=== PATIENT | male | born 1955 | race Caucasian/White ===

== ENCOUNTER → 2017-01-13 | Outpatient (CLI) | payer MEDICAID, MEDICARE ==
[2017-01-13 08:13] LABS: Basophils # (A) 0.1 k/uL (0-0.2); Basophils % (A) 1 %; CH 31.5; CHCM 33.4; Eosinophils # (A) 0.3 k/uL (0-0.7); Eosinophils % (A) 2 %; HCT 46.7 % (39.0-53.0); HGB 15.6 gm/dL (13.0-17.5); Luc # (Auto) 0.17; Luc % (Auto) 2; Lymphocytes # (A) 2.5 k/uL (1.0-4.8); Lymphocytes % (A) 23 %; MCH 31.6 pg (25.0-35.0); MCHC 33.3 g/dL (31.0-37.0); Mean Platelet Volume 6.2; Monocytes # (A) 0.7 k/uL (0-1.0); Monocytes % (A) 6 %; Neutrophils # (A) 7.2 k/uL (1.3-7.7); Neutrophils % (A) 67 %; RBC 4.92 m/uL (4.30-5.90); RDW 13.2 % (11.5-15.5); WBC 10.8 k/uL (3.8-10.6); WBC (Perox) 10.79
[2017-01-13 08:45] LABS: Appearance,Urine Clear (Clear); Bilirubin,Urine Negative (Negative); Glucose,Urine (UA) Negative (Negative); Ketones,Urine 1+ (Negative); Leukocyte Esterase,Urine Negative (Negative); Mucus,Urine Rare /hpf; Nitrite,Urine Negative (Negative); Particle Count 526; Protein,Urine Negative (Negative); RBC,Urine 14 /hpf (0-5); Specific Gravity,Urine 1.006 (1.001-1.035); UA Billing (MACRO vs. MICRO) MICRO; Urobilinogen,Urine <2.0 mg/dL (<2.0); WBC,Urine <1 /hpf (0-5)
[2017-01-13 11:00] LABS: ALT 29 U/L (21-72); AST 21 U/L (17-59); Alkaline Phosphatase 75 U/L (38-126); Anion Gap 10 mmol/L; Blood Urea Nitrogen 9 mg/dL (9-20); Calcium 9.8 mg/dL (8.4-10.2); Carbon Dioxide 27 mmol/L (22-30); Chloride 105 mmol/L (98-107); Cholesterol 188 mg/dL (<200); Glucose 122 mg/dL (74-99); HDL Cholesterol 41 mg/dL (40-60); Non-African American GFR(MDRD) >60 (>60 ml/min/1.73 sqM); Potassium 4.7 mmol/L (3.5-5.1); Sodium 142 mmol/L (137-145); Total Bilirubin 0.6 mg/dL (0.2-1.3); Total Protein 7.8 g/dL (6.3-8.2); Triglycerides 133 mg/dL (<150)
[2017-01-13 11:29] LABS: Prostate Specific Antigen 1.16 ng/mL (0.00-4.00)
== END | disposition home or self-care (01) ==
LOC: LABWHC1 07:42
PROVIDERS: ATTEND Family Medicine
DX: Z00.01 Encounter for general adult medical examination with abnormal findings (principal)
CPT/HCPCS: 36415; 80053; 80061; 81001; 84153; 85025

== ENCOUNTER → 2017-08-15 | Outpatient (CLI) | payer MEDICAID, MEDICARE ==
[2017-08-15 12:33] LABS: Basophils # (A) 0.1 k/uL (0-0.2); Basophils % (A) 1 %; CH 31.6; CHCM 33.7; Eosinophils # (A) 0.3 k/uL (0-0.7); Eosinophils % (A) 3 %; HCT 46.2 % (39.0-53.0); HDW 2.49; HGB 15.3 gm/dL (13.0-17.5); Luc # (Auto) 0.22; Luc % (Auto) 2; Lymphocytes # (A) 2.3 k/uL (1.0-4.8); Lymphocytes % (A) 25 %; MCH 31.1 pg (25.0-35.0); MCHC 33.1 g/dL (31.0-37.0); MCV 94.1 fL (80.0-100.0); Mean Platelet Volume 6.1; Monocytes # (A) 0.4 k/uL (0-1.0); Monocytes % (A) 4 %; Neutrophils # (A) 5.9 k/uL (1.3-7.7); Neutrophils % (A) 64 %; RBC 4.91 m/uL (4.30-5.90); RDW 12.8 % (11.5-15.5); WBC 9.2 k/uL (3.8-10.6); WBC (Perox) 8.99
[2017-08-15 12:48] LABS: ALT 37 U/L (21-72); AST 21 U/L (17-59); Anion Gap 9 mmol/L; Blood Urea Nitrogen 12 mg/dL (9-20); Calcium 9.6 mg/dL (8.4-10.2); Carbon Dioxide 25 mmol/L (22-30); Chloride 105 mmol/L (98-107); Cholesterol 186 mg/dL (<200); Glucose 124 mg/dL (74-99); HDL Cholesterol 44 mg/dL (40-60); Non-African American GFR(MDRD) >60 (>60 ml/min/1.73 sqM); Potassium 4.3 mmol/L (3.5-5.1); Sodium 139 mmol/L (137-145)
== END | disposition home or self-care (01) ==
LOC: LABWHC1 11:51
PROVIDERS: ATTEND Family Medicine
DX: E78.5 Hyperlipidemia, unspecified (principal); I10 Essential (primary) hypertension; E55.9 Vitamin D deficiency, unspecified
CPT/HCPCS: 36415; 80048; 80061; 82306; 84450; 84460; 85025

== ENCOUNTER → 2018-03-27 | Outpatient (CLI) | payer MEDICAID, MEDICARE ==
--- NOTE | 2018-03-27 16:26 | MR ---
EXAMINATION TYPE: MR lumbar spine wo con DATE OF EXAM: 03/27/2018 COMPARISON: None HISTORY: 62-year-old male with low back pain and right lower extremity radiculopathy for years, no tr auma/surgery TECHNIQUE: Multiplanar, multisequence images of the lumbar spine were acquired. Findings: Vertebral body heights are preserved and alignment is maintained. Mild heterogeneous marrow signal without suspicious bone marrow placement. There is some mixed Modic type I and type II endplate changes anteriorly at L1-L2 and a fatty matrix hemangioma within the L2 v ertebral body. Component of mild congenital spinal canal narrowing with AP canal dimension of 1.3 cm mid to lower christopher mbar spine. Variable mild disc desiccation throughout and bulging discs. Hypertrophic facet arthropathy and scattered ligamentum flavum thickening. Additional prominent dorsa l epidural fat at L2/L3. Conus medullaris is normal. 2.0 cm central cyst in the right kidney. Ectatic upper abdominal aorta 2.8 cm. Mild fusiform dilatati on of the infrarenal abdominal aorta 2.4 cm. No aneurysm. At T12-L1, no significant spinal canal or neural foraminal stenosis. At L1-L2, no significant spinal canal or foraminal stenosis. At L2-L3, there is diffuse disc bulge with ligamentum flavum thickening, prominent dorsal epidural fa t, and facet arthropathy. Changes result in a mild spinal canal stenosis along with mild right greate r than left neural foraminal stenosis. At L3-L4, there is mild lateral disc bulging with facet degenerative change. No significant spinal ca nal stenosis. Minimal bilateral inferior neuroforaminal stenosis. At L4-L5, hypertrophic facet arthropathy with ligamentum flavum thickening and lateral disc bulging. Changes results in minimal bilateral inferior foraminal narrowing without spinal canal stenosis. At L5-S1, bulging disc with facet arthropathy. Changes result in moderate left neural foraminal steno sis with moderate to severe right neural foraminal stenosis probably with impingement of the exiting right L5 nerve root. IMPRESSION: 1. A component of mild congenital spinal canal narrowing. There is superimposed mild multilevel degen erative disc disease. Additional multilevel ligamentum flavum thickening and facet arthropathy. 2. Changes result in an overall mild spinal canal stenosis at L2-L3. Mild right greater than left hudson ral foraminal stenosis at this level. 3. At L5-S1, there is moderate left and moderate to severe right neuroforaminal stenosis possibly wit h impingement of the exiting right L5 nerve root. 4. No high-grade canal compromise.
== END | disposition home or self-care (01) ==
LOC: RADMRIMAIN 15:16
PROVIDERS: ATTEND Psychiatry & Neurology Neurology
DX: M48.061 Spinal stenosis, lumbar region without neurogenic claudication (principal); M99.73 Connective tissue and disc stenosis of intervertebral foramina of lumbar region; M51.36 Other intervertebral disc degeneration, lumbar region; M46.96 Unspecified inflammatory spondylopathy, lumbar region; M24.28 Disorder of ligament, vertebrae; Z88.5 Allergy status to narcotic agent; Z88.6 Allergy status to analgesic agent; Z88.8 Allergy status to other drugs, medicaments and biological substances
CPT/HCPCS: 72148

== ENCOUNTER → 2018-06-04 | Outpatient (CLI) | payer MEDICAID, MEDICARE ==
--- NOTE | 2018-06-04 21:26 | XR ---
EXAMINATION TYPE: XR chest 2V DATE OF EXAM: 06/04/2018 COMPARISON: 06/23/2010 TECHNIQUE: PA and lateral views submitted. HISTORY: Cough FINDINGS: The lungs are clear and there is no pneumothorax, pleural effusion, or focal pneumonia. Hyperinflat ion suggests COPD. Postsurgical change cervical spine. Hypertrophic and degenerative change spine. Hy perinflation suggests COPD. Prominent nodular density overlying the right upper lobe. IMPRESSION: 1. COPD. There is a 1.2 cm nodule overlying the right upper lobe. CT chest recommended.
== END | disposition home or self-care (01) ==
LOC: RADXRMAIN 15:58
PROVIDERS: ATTEND Physician Assistant
DX: J44.9 Chronic obstructive pulmonary disease, unspecified (principal); R91.1 Solitary pulmonary nodule
CPT/HCPCS: 71046

== ENCOUNTER → 2018-07-20 | Outpatient (CLI) | payer MEDICAID, MEDICARE ==
[2018-07-20 16:08] LABS: Basophils # (A) 0.1 k/uL (0-0.2); Basophils % (A) 1 %; Eosinophils # (A) 0.2 k/uL (0-0.7); Eosinophils % (A) 2 %; HCT 43.4 % (39.0-53.0); HGB 14.1 gm/dL (13.0-17.5); Lymphocytes # (A) 2.1 k/uL (1.0-4.8); Lymphocytes % (A) 21 %; MCH 31.2 pg (25.0-35.0); MCHC 32.5 g/dL (31.0-37.0); MCV 96.1 fL (80.0-100.0); Mean Platelet Volume 6.3; Monocytes # (A) 0.4 k/uL (0-1.0); Monocytes % (A) 4 %; Neutrophils # (A) 6.8 k/uL (1.3-7.7); Neutrophils % (A) 70 %; Platelet Count 330 k/uL (150-450); RBC 4.51 m/uL (4.30-5.90); WBC 9.7 k/uL (3.8-10.6)
[2018-07-20 16:19] LABS: Calcium 9.9 mg/dL (8.4-10.2); Potassium 5.4 mmol/L (3.5-5.1)
[2018-07-21 03:48] LABS: Hemoglobin A1C 6.9 % (4.0-6.0)
--- NOTE | 2018-07-21 13:25 | CT ---
EXAMINATION TYPE: CT chest w con DATE OF EXAM: 07/20/2018 COMPARISON: Chest x-ray 06/04/2018 HISTORY: abnormal chest xray CT DLP: 625 mGycm Automated exposure control for dose reduction was used. CONTRAST: CT scan of the chest is performed with IV Contrast, patient injected with 100 mL of Isovue 300. FINDINGS: LUNGS: The lungs are grossly clear, there is no concerning parenchymal mass or nodule identified. T here is no pleural effusion or pneumothorax seen. The tracheobronchial tree is patent. MEDIASTINUM: There are no greater than 1 cm hilar or mediastinal lymph nodes. There are coronary esperanza ry calcifications. No pericardial effusion is seen. AORTA: No additional significant abnormality is seen. OTHER: Hypertrophic change present at the junction of the anterior rib and manubrium is present and likely corresponds to the abnormality described on chest x-ray.. IMPRESSION: No evident lung mass. Coronary artery disease.
== END ==
LOC: RADCTMAIN 15:34
PROVIDERS: ATTEND Family Medicine
DX: D49.1 Neoplasm of unspecified behavior of respiratory system (principal); I25.10 Atherosclerotic heart disease of native coronary artery without angina pectoris; I10 Essential (primary) hypertension; E78.5 Hyperlipidemia, unspecified; E11.65 Type 2 diabetes mellitus with hyperglycemia
CPT/HCPCS: 80048; 84450; 84460; 85025; 83036; 71260; Q9967

== ENCOUNTER → 2018-08-03 | Outpatient (CLI) | payer MEDICAID, MEDICARE ==
[2018-08-03 19:10] LABS: Anion Gap 6.7 mmol/L (4.00-12.00); Calcium 9.1 mg/dL (8.7-10.3); Carbon Dioxide 26.3 mmol/L (21.6-31.8); Potassium 4.4 mmol/L (3.5-5.5)
== END ==
LOC: LABWHC1 12:13
PROVIDERS: ATTEND Family Medicine
DX: Z51.81 Encounter for therapeutic drug level monitoring (principal)
CPT/HCPCS: 36415; 80048

== ENCOUNTER → 2018-10-22 | Outpatient (CLI) | payer MEDICAID, MEDICARE ==
[2018-10-22 16:28] LABS: HCT 42.3 % (39.0-53.0); HGB 13.8 gm/dL (13.0-17.5); MCH 30.4 pg (25.0-35.0); MCHC 32.5 g/dL (31.0-37.0); MCV 93.5 fL (80.0-100.0); Mean Platelet Volume 6.1; Platelet Count 320 k/uL (150-450); RBC 4.53 m/uL (4.30-5.90); RDW 12.7 % (11.5-15.5); WBC 9.1 k/uL (3.8-10.6)
[2018-10-22 16:33] LABS: Appearance,Urine Clear (Clear); Bilirubin,Urine Negative (Negative); Blood,Urine Moderate (Negative); Color,Urine Light Yellow; Glucose,Urine (UA) Negative (Negative); Ketones,Urine Negative (Negative); Leukocyte Esterase,Urine Negative (Negative); Nitrite,Urine Negative (Negative); PH, Urine 5.5 (5.0-8.0); Protein,Urine Negative (Negative); RBC,Urine 2 /hpf (0-5); Specific Gravity,Urine 1.004 (1.001-1.035); Urobilinogen,Urine <2.0 mg/dL (<2.0); WBC,Urine <1 /hpf (0-5)
[2018-10-23 01:01] LABS: Albumin 4.3 g/dL (3.80-4.90); Albumin/Globulin Ratio 2.05 (1.60-3.17); Anion Gap 9.4 mmol/L (4.00-12.00); Carbon Dioxide 24.6 mmol/L (21.6-31.8); Globulin 2.1 g/dL (1.6-3.3); Total Bilirubin 0.5 mg/dL (0.2-1.2); Total Protein 6.4 g/dL (6.2-8.2)
[2018-10-23 01:39] LABS: Hemoglobin A1C 6.7 % (4.0-6.0)
== END | disposition home or self-care (01) ==
LOC: LABWHC1 15:07
PROVIDERS: ATTEND Family Medicine
DX: Z00.01 Encounter for general adult medical examination with abnormal findings (principal); E11.9 Type 2 diabetes mellitus without complications
CPT/HCPCS: 36415; 80053; 80061; 81001; 82043; 82550; 82570; 83036; 84153; 84443; 85027; 86803

== ENCOUNTER → 2019-04-02 | Outpatient (CLI) | payer MEDICAID, MEDICARE ==
[2019-04-02 14:36] LABS: MCH 30.1 pg (25.0-35.0); MCHC 32.5 g/dL (31.0-37.0); MCV 92.7 fL (80.0-100.0); Mean Platelet Volume 6.7; Platelet Count 289 k/uL (150-450); RBC 4.32 m/uL (4.30-5.90); RDW 13.5 % (11.5-15.5); WBC 8.9 k/uL (3.8-10.6)
[2019-04-02 18:33] LABS: African American GFR (CKD) 66.4 (60.0-200.0); Anion Gap 9.4 mmol/L (4.00-12.00); BUN/Creat Ratio 8.46 Ratio (12.00-20.00); Calcium 9.2 mg/dL (8.7-10.3); Carbon Dioxide 22.6 mmol/L (21.6-31.8); Potassium 4.3 mmol/L (3.5-5.5)
[2019-04-02 19:50] LABS: Hemoglobin A1C 6.7 % (4.0-6.0)
== END | disposition home or self-care (01) ==
LOC: LABWHC1 13:53
PROVIDERS: ATTEND Family Medicine
DX: E11.9 Type 2 diabetes mellitus without complications (principal)
CPT/HCPCS: 36415; 80048; 83036; 84450; 84460; 85027

== ENCOUNTER → 2019-09-25 | Outpatient (CLI) | payer MEDICAID, MEDICARE ==
--- NOTE | 2019-09-26 10:04 | ECHOF ---
Referral Reason:I35.1 Nonrheumatic aortic (valve) insufficiency MEASUREMENTS -------- HEIGHT: 180.3 cm WEIGHT: 86.6 kg BP: RVIDd: 3.6 cm (< 3.3) IVSd: 1.1 cm (0.6 - 1.1) LVIDd: 4.6 cm (3.9 - 5.3) LVPWd: 1.5 cm (0.6 - 1.1) IVSs: 1.5 cm LVIDs: 3.0 cm LVPWs: 1.8 cm LA Diam: 3.8 cm (2.7 - 3.8) Ao Diam: 3.4 cm (2.0 - 3.7) AV Cusp: 1.4 cm (1.5 - 2.6) LA Diam: 2.7 cm (2.7 - 3.8) MV EXCURSION: 18.395 mm (> 18.000) MV EF SLOPE: 76 mm/s (70 - 150) EPSS: 1.7 cm MV E Shon: 0.71 m/s MV DecT: 222 ms MV A Shon: 0.74 m/s MV E/A Ratio: 0.95 AR PHT: 402 ms RAP: 5.00 mmHg RVSP: 16.02 mmHg FINDINGS -------- Sinus rhythm. This was a technically adequate study. The left ventricular size is normal. There is mild concentric left ventricular hypertrophy. Overa ll left ventricular systolic function is low-normal with, an EF between 50 - 55 %. The diastolic fi lling pattern is normal for the age of the patient {E/E'}. The right ventricle is normal in size. The left atrial size is normal. The right atrial size is normal. There is mild aortic regurgitation. Can't exclude Bicuspid valve vs fused cusp. Mild mitral annular calcification present. Mild mitral regurgitation is present. Mild tricuspid regurgitation present. Right ventricular systolic pressure is normal at < 35 mmHg. There is no evidence of pulmonary hypertension. There is no pulmonic regurgitation present. The aortic root size is normal. Echo free space indicative of a pericardial fat pad. CONCLUSIONS -------- 1. Sinus rhythm. 2. This was a technically adequate study. 3. The left ventricular size is normal. 4. There is mild concentric left ventricular hypertrophy. 5. Overall left ventricular systolic function is low-normal with, an EF between 50 - 55 %. 6. The diastolic filling pattern is normal for the age of the patient {E/E'} 7. The right ventricle is normal in size. 8. The left atrial size is normal. 9. The right atrial size is normal. 10. There is mild aortic regurgitation. 11. Can't exclude Bicuspid valve vs fused cusp. 12. Mild mitral annular calcification present. 13. Mild mitral regurgitation is present. 14. Mild tricuspid regurgitation present. 15. Right ventricular systolic pressure is normal at < 35 mmHg. 16. There is no evidence of pulmonary hypertension. 17. There is no pulmonic regurgitation present. 18. The aortic root size is normal. 19. Echo free space indicative of a pericardial fat pad. BAG MACHINE OPERATOR HELPER: Cierra Winters RDCS
== END | disposition home or self-care (01) ==
LOC: RADECHMAIN 14:45
PROVIDERS: ATTEND Internal Medicine Cardiovascular Disease
DX: I08.3 Combined rheumatic disorders of mitral, aortic and tricuspid valves (principal)
CPT/HCPCS: 93306

== ENCOUNTER → 2019-10-15 | Outpatient (CLI) | payer MEDICAID, MEDICARE ==
[2019-10-15 13:50] LABS: Appearance,Urine Clear (Clear); Bilirubin,Urine Negative (Negative); Blood,Urine Moderate (Negative); Color,Urine Yellow; Glucose,Urine (UA) Negative (Negative); Hyaline Casts,Urine 1 /lpf (0-2); Ketones,Urine Negative (Negative); Leukocyte Esterase,Urine Negative (Negative); Nitrite,Urine Negative (Negative); Protein,Urine Negative (Negative); RBC,Urine 12 /hpf (0-5); Specific Gravity,Urine 1.016 (1.001-1.035); Urobilinogen,Urine <2.0 mg/dL (<2.0); WBC,Urine <1 /hpf (0-5)
[2019-10-15 13:57] LABS: HCT 41.7 % (39.0-53.0); HGB 13.5 gm/dL (13.0-17.5); MCH 30.8 pg (25.0-35.0); MCHC 32.5 g/dL (31.0-37.0); MCV 94.9 fL (80.0-100.0); Mean Platelet Volume 6.4; Platelet Count 322 k/uL (150-450); RBC 4.39 m/uL (4.30-5.90); RDW 12.7 % (11.5-15.5); WBC 8.7 k/uL (3.8-10.6)
[2019-10-15 19:13] LABS: African American GFR (CKD) 91.1 (60.0-200.0); Albumin 4.4 g/dL (3.80-4.90); Albumin/Globulin Ratio 2.44 (1.60-3.17); Anion Gap 5.4 mmol/L (4.00-12.00); Carbon Dioxide 27.6 mmol/L (21.6-31.8); Chol/HDL Ratio 4.16; Globulin 1.8 g/dL (1.6-3.3); LDL Cholesterol,Calculated 78.6 mg/dL (0.0-131.0); Non-African American GFR(CKD) 78.6 (60.0-200.0); Potassium 4.3 mmol/L (3.5-5.5); Total Bilirubin 0.3 mg/dL (0.3-1.2); Total Protein 6.2 g/dL (6.2-8.2); VLDL Calculation 22.4 mg/dL (5.00-40.00)
[2019-10-15 21:49] LABS: Hemoglobin A1C 6.5 % (4.0-6.0)
[2019-10-15 22:09] LABS: Microalbumin Creatinine Ratio <30 mg/g Creat (0-30); Urine Creatinine 108.6 mg/dL
== END | disposition home or self-care (01) ==
LOC: LABWHC1 12:57
PROVIDERS: ATTEND Family Medicine
DX: Z00.01 Encounter for general adult medical examination with abnormal findings (principal); R31.9 Hematuria, unspecified; E11.9 Type 2 diabetes mellitus without complications
CPT/HCPCS: 36415; 80053; 80061; 81001; 82043; 82306; 82570; 83036; 84153; 84443; 85027; 88108

== ENCOUNTER → 2020-04-14 | Outpatient (CLI) | payer MEDICAID, MEDICARE ==
[2020-04-14 15:43] LABS: HCT 39.9 % (39.0-53.0); HGB 13.5 gm/dL (13.0-17.5); MCH 31.8 pg (25.0-35.0); MCHC 33.8 g/dL (31.0-37.0); Mean Platelet Volume 6.3; Platelet Count 295 k/uL (150-450); RBC 4.25 m/uL (4.30-5.90); RDW 12.4 % (11.5-15.5); WBC 8.3 k/uL (3.8-10.6)
[2020-04-15 00:55] LABS: African American GFR (CKD) 80.6 (60.0-200.0); Anion Gap 5.6 mmol/L (4.00-12.00); Calcium 9.2 mg/dL (8.7-10.3); Carbon Dioxide 26.4 mmol/L (21.6-31.8); Non-African American GFR(CKD) 69.6 (60.0-200.0); Potassium 4.5 mmol/L (3.5-5.5)
[2020-04-15 01:24] LABS: Hemoglobin A1C 6.4 % (4.0-6.0)
== END | disposition home or self-care (01) ==
LOC: LABWHC1 14:41
PROVIDERS: ATTEND Family Medicine
DX: E11.9 Type 2 diabetes mellitus without complications (principal); I10 Essential (primary) hypertension
CPT/HCPCS: 36415; 80048; 83036; 84450; 84460; 85027

== ENCOUNTER 2020-05-09 21:58 | Inpatient (IN) | payer MEDICAID, MEDICARE ==
[2020-05-09] MEDS ORDERED: ACETAMINOPHEN TAB 325 MG TAB PO STA (22:55)
[2020-05-09] MEDS: SODIUM CHLORIDE 0.9% 500 ML 500 ML IV SCH (22:59)
--- NOTE | 2020-05-09 23:24 | ED ---
General Adult HPI - General Chief complaint: Chest Pain Stated complaint: SOB Time Seen by Provider: 05/09/20 22:55 Source: patient Mode of arrival: ambulatory Limitations: no limitations - History of Present Illness Initial comments: All is a 64-year-old male with past medical history of COPD, diabetes, hypertension and hyperlipidemia. Patient presents to ER today with complaint of pleuritic chest pain, fever and a cough. Patient reports he symptoms began yesterday worsened throughout the day today. He took a [place] for the discomfort with no improvement. checked his temperature and it was over 102 which prompted him to come to the ER for evaluation. Patient and report that they've been quarantining and had relatively strict social isolation, they've had no contact with any known COVID patient's. - Related Data Home Medications Medication Instructions Recorded Confirmed Carisoprodol 350 mg PO DAILY 04/22/14 12/07/17 Dipyridamole-Aspirin 200-25 mg 1 tab PO DAILY 04/22/14 12/07/17 [Aggrenox 25MG -200MG] Gabapentin 300 mg PO DAILY 04/22/14 12/07/17 Hydrocodone/Acetaminophen 1 tab PO DAILY 04/22/14 12/07/17 [Hydrocodone/Acetaminophen 10-325] Rosuvastatin [Crestor] 10 mg PO DAILY 04/22/14 12/07/17 atenoloL [Atenolol] 25 mg PO DAILY 04/22/14 12/07/17 cilostazoL [Pletal] 100 mg PO DAILY 04/22/14 12/07/17 Allergies Allergy/AdvReac Type Severity Reaction Status Date / Time No Known Allergies Allergy Verified 05/09/20 23:14 Review of Systems ROS Statement: Those systems with pertinent positive or pertinent negative responses have been documented in the HPI. ROS Other: All systems not noted in ROS Statement are negative. Past Medical History Past Medical History: Asthma, COPD, CVA/TIA, Diabetes Mellitus, Hyperlipidemia, Hypertension History of Any Multi-Drug Resistant Organisms: None Reported Past Surgical History: Tonsillectomy Additional Past Surgical History / Comment(s): cervical fusion x2 in 2005, bypass right leg artery Past Anesthesia/Blood Transfusion Reactions: No Reported Reaction Past Psychological History: No Psychological Hx Reported Past Alcohol Use History: Occasional Past Drug Use History: None Reported General Exam - General Exam Comments Initial Comments: Physical Exam GENERAL: Patient is well-developed and well-nourished. Patient is nontoxic and well- hydrated and is in no distress. HENT: Normocephalic, Atraumatic. EYES: PERRL, EOMI PULMONARY: Crackles at bilateral bases CARDIOVASCULAR: There is a regular rate and rhythm without any murmurs gallops or rubs. ABDOMEN: Soft and nontender with normal bowel sounds. SKIN: Warm, sweaty : Deferred NEUROLOGIC: Patient is alert and oriented x3. Moving all extremities spontaneously Hard of hearing MUSCULOSKELETAL: Normal extremities with adequate strength and full range of motion. No lower extremity swelling or edema. No calf tenderness. PSYCHIATRIC: Normal psychiatric evaluation. Limitations: no limitations Course Vital Signs 05/09/20 05/09/20 05/09/20 22:01 23:36 23:40 Temperature 101.3 F H 99.2 F Pulse Rate 105 H 96 Respiratory 18 18 Rate Blood Pressure 103/57 107/56 O2 Sat by Pulse 95 96 Oximetry EKG Findings - EKG Comments: EKG Findings:: EKG was obtained due to complaint of chest pain tachycardia, EKG was obtained at 2219, rate is 104 rhythm is sinus tach normal axis, normal intervals, NM 190, QRS 78, QTC is 423 there are no acute ST elevations or depressions there is no evidence of acute ischemia or infarction. Procedures - Sepsis Sepsis Focused Exam #1 Time Sepsis Criteria Met: 00:55 Sepsis Focused Exam Date: 05/10/20 Sepsis Focused Exam Time: 01:13 Sepsis Focused Exam Complete: Yes Vital Signs & RN Notes Reviewed: Yes Capillary Refill: < 2 Seconds: Fingers, Toes Peripheral Pulses: Normal: Radial (R), Radial (L) Skin Color: Normal for Patient Respiratory Exam: rhonchi, decreased breath sounds Cardiovascular Exam: regular rate Medical Decision Making - Medical Decision Making The patient was seen and evaluated, history is obtained from the patient Vital signs were reviewed patient was noted be tachycardic and febrile as well as tachypneic with no hypoxia A septic workup was initiated IV fluids were ordered Labs resulted with leukocytosis with neutrophilia, no lactic acidosis, troponin is negative Chest x-ray is concerning for an atypical pneumonia with infiltrate in the bilateral lower lobes patient will be treated with Rocephin and azithromycin After fluids and antipyretics the patient's heart rate has improved he is no longer febrile All results were discussed with the patient, who is agreeable to admission for IV antibiotics, COVID testing, supplemental oxygenation and further observation. - Lab Data Result diagrams: 05/09/20 22:59 05/09/20 22:59 Lab Results 05/09/20 05/09/20 05/09/20 Range/Units 22:59 22:59 22:59 WBC 12.4 H (3.8-10.6) k/uL RBC 3.79 L (4.30-5.90) m/uL Hgb 11.6 L (13.0-17.5) gm/dL Hct 34.9 L (39.0-53.0) % MCV 92.3 (80.0-100.0) fL MCH 30.6 (25.0-35.0) pg MCHC 33.2 (31.0-37.0) g/dL RDW 12.9 (11.5-15.5) % Plt Count 234 (150-450) k/uL Neutrophils % 78 % Lymphocytes % 11 % Monocytes % 8 % Eosinophils % 1 % Basophils % 0 % Neutrophils # 9.7 H (1.3-7.7) k/uL Lymphocytes # 1.4 (1.0-4.8) k/uL Monocytes # 1.0 (0-1.0) k/uL Eosinophils # 0.2 (0-0.7) k/uL Basophils # 0.0 (0-0.2) k/uL PT 10.3 (9.0-12.0) sec INR 1.0 (<1.2) APTT 26.2 (22.0-30.0) sec Sodium 132 L (137-145) mmol/L Potassium 3.7 (3.5-5.1) mmol/L Chloride 101 (98-107) mmol/L Carbon Dioxide 22 (22-30) mmol/L Anion Gap 9 mmol/L BUN 15 (9-20) mg/dL Creatinine 1.03 (0.66-1.25) mg/dL Est GFR (CKD-EPI)AfAm 88 (>60 ml/min/1.73 sqM) Est GFR (CKD-EPI)NonAf 76 (>60 ml/min/1.73 sqM) Glucose 127 H (74-99) mg/dL Plasma Lactic Acid Diego (0.7-2.0) mmol/L Calcium 8.8 (8.4-10.2) mg/dL Total Bilirubin 0.6 (0.2-1.3) mg/dL AST 16 L (17-59) U/L ALT 9 (4-49) U/L Alkaline Phosphatase 71 (38-126) U/L Creatine Kinase 89 (55-170) U/L Troponin I (0.000-0.034) ng/mL Total Protein 6.3 (6.3-8.2) g/dL Albumin 3.8 (3.5-5.0) g/dL Urine Color Urine Appearance (Clear) Urine pH (5.0-8.0) Ur Specific [place] (1.001-1.035) Urine Protein (Negative) Urine Glucose (UA) (Negative) Urine Ketones (Negative) Urine Blood (Negative) Urine Nitrite (Negative) Urine Bilirubin (Negative) Urine Urobilinogen (<2.0) mg/dL Ur Leukocyte Esterase (Negative) Urine RBC (0-5) /hpf Urine WBC (0-5) /hpf Urine Mucus (None) /hpf 05/09/20 05/09/20 05/10/20 Range/Units 22:59 23:00 00:37 WBC (3.8-10.6) k/uL RBC (4.30-5.90) m/uL Hgb (13.0-17.5) gm/dL Hct (39.0-53.0) % MCV (80.0-100.0) fL MCH (25.0-35.0) pg MCHC (31.0-37.0) g/dL RDW (11.5-15.5) % Plt Count (150-450) k/uL Neutrophils % % Lymphocytes % % Monocytes % % Eosinophils % % Basophils % % Neutrophils # (1.3-7.7) k/uL Lymphocytes # (1.0-4.8) k/uL Monocytes # (0-1.0) k/uL Eosinophils # (0-0.7) k/uL Basophils # (0-0.2) k/uL PT (9.0-12.0) sec INR (<1.2) APTT (22.0-30.0) sec Sodium (137-145) mmol/L Potassium (3.5-5.1) mmol/L Chloride (98-107) mmol/L Carbon Dioxide (22-30) mmol/L Anion Gap mmol/L BUN (9-20) mg/dL Creatinine (0.66-1.25) mg/dL Est GFR (CKD-EPI)AfAm (>60 ml/min/1.73 sqM) Est GFR (CKD-EPI)NonAf (>60 ml/min/1.73 sqM) Glucose (74-99) mg/dL Plasma Lactic Acid Diego 0.9 (0.7-2.0) mmol/L Calcium (8.4-10.2) mg/dL Total Bilirubin (0.2-1.3) mg/dL AST (17-59) U/L ALT (4-49) U/L Alkaline Phosphatase (38-126) U/L Creatine Kinase (55-170) U/L Troponin I <0.012 (0.000-0.034) ng/mL Total Protein (6.3-8.2) g/dL Albumin (3.5-5.0) g/dL Urine Color Yellow Urine Appearance Clear (Clear) Urine pH 6.0 (5.0-8.0) Ur Specific [place] 1.013 (1.001-1.035) Urine Protein Negative (Negative) Urine Glucose (UA) Negative (Negative) Urine Ketones Negative (Negative) Urine Blood Moderate H (Negative) Urine Nitrite Negative (Negative) Urine Bilirubin Negative (Negative) Urine Urobilinogen <2.0 (<2.0) mg/dL Ur Leukocyte Esterase Negative (Negative) Urine RBC 9 H (0-5) /hpf Urine WBC <1 (0-5) /hpf Urine Mucus Rare H (None) /hpf Disposition Clinical Impression: Pneumonia, Sepsis, Tobacco abuse Disposition: ADMITTED IP TO THIS HOSP Condition: Serious Is patient prescribed a controlled substance at d/c from ED?: No Referrals: Mateusz Trevino DO [Primary Care Provider] - 1-2 days
--- NOTE | 2020-05-09 23:39 | XR ---
EXAMINATION TYPE: XR chest 1V portable DATE OF EXAM: 05/09/2020 COMPARISON: 06/04/2018 HISTORY: Cough. Fever. TECHNIQUE: Single view FINDINGS: There is some interstitial infiltrate at the lung bases. There is no gross heart failure. T here are no hilar masses. There are chest leads. IMPRESSION: Increased pulmonary interstitial infiltrates in the lower lobes compared to old exam. No obvious heart failure.
[2020-05-10 00:05] LABS: Albumin 3.8 g/dL (3.5-5.0); Calcium 8.8 mg/dL (8.4-10.2); Potassium 3.7 mmol/L (3.5-5.1); Total Bilirubin 0.6 mg/dL (0.2-1.3); Total Protein 6.3 g/dL (6.3-8.2)
[2020-05-10 00:11] LABS: Basophils % (A) 0 %; Eosinophils # (A) 0.2 k/uL (0-0.7); Eosinophils % (A) 1 %; HCT 34.9 % (39.0-53.0); HGB 11.6 gm/dL (13.0-17.5); Lymphocytes # (A) 1.4 k/uL (1.0-4.8); Lymphocytes % (A) 11 %; MCH 30.6 pg (25.0-35.0); MCHC 33.2 g/dL (31.0-37.0); MCV 92.3 fL (80.0-100.0); Mean Platelet Volume 7.3; Monocytes % (A) 8 %; Neutrophils # (A) 9.7 k/uL (1.3-7.7); Neutrophils % (A) 78 %; Platelet Count 234 k/uL (150-450); RBC 3.79 m/uL (4.30-5.90); RDW 12.9 % (11.5-15.5); WBC 12.4 k/uL (3.8-10.6)
[2020-05-10 00:28] LABS: Partial Thromboplastin Time 26.2 sec (22.0-30.0); Prothrombin Time 10.3 sec (9.0-12.0)
[2020-05-10] MEDS: SODIUM CHLORIDE 0.9% 1,000 ML IV SCH ×3 (00:30→11:50)
[2020-05-10 00:46] LABS: Appearance,Urine Clear (Clear); Bilirubin,Urine Negative (Negative); Blood,Urine Moderate (Negative); Color,Urine Yellow; Glucose,Urine (UA) Negative (Negative); Ketones,Urine Negative (Negative); Leukocyte Esterase,Urine Negative (Negative); Mucus,Urine Rare /hpf; Nitrite,Urine Negative (Negative); Protein,Urine Negative (Negative); RBC,Urine 9 /hpf (0-5); Specific Gravity,Urine 1.013 (1.001-1.035); Urobilinogen,Urine <2.0 mg/dL (<2.0); WBC,Urine <1 /hpf (0-5)
[2020-05-10] MEDS ORDERED: cefTRIAXone IN SWFI 1,000 MG/10 ML SYRINGE IVP STA (00:55)
[2020-05-10] MEDS ORDERED: AZITHROMYCIN 500 MG in SODIUM CHLORIDE 0.9% 250 ML IVPB STA (00:55)
[2020-05-10] MEDS ORDERED: IBUPROFEN 400 MG TAB PO PRN (01:05)
[2020-05-10] MEDS ORDERED: NALOXONE 0.4 MG/ML 1 ML VIAL IV PRN (01:05)
[2020-05-10] MEDS ORDERED: ALBUTEROL HFA INHALER INHALATION ONE (02:30)
[2020-05-10 07:19] LABS: Glucose,Whole Blood 117 mg/dL (75-99)
[2020-05-10] MEDS: INSULIN ASPART (NovoLOG) 100 UNIT/ML VIAL SQ SCH ×4 (07:21→20:53)
[2020-05-10] MEDS: NICOTINE 14MG/24HR PATCH TRANSDERM SCH (08:31)
[2020-05-10] MEDS: ACETAMINOPHEN TAB 325 MG TAB PO PRN ×2 (08:43→15:27)
[2020-05-10] MEDS ORDERED: GABAPENTIN 300 MG CAP PO PRN (10:53)
[2020-05-10 11:41] LABS: Glucose,Whole Blood 123 mg/dL (75-99)
[2020-05-10] MEDS: DIPYRIDAMOLE-ASPIRIN 200-25 MG 1 EACH CPMP.12HR PO SCH ×2 (12:12→19:35)
[2020-05-10] MEDS: METOPROLOL TARTRATE 25 MG TAB PO SCH ×2 (12:13→19:35)
[2020-05-10] MEDS: LEVOFLOXACIN 750MG-D5W PMX 750 MG in DEXTROSE/WATER 1 150ML.BAG IVPB SCH (12:13)
[2020-05-10] MEDS: cilostazoL 100 MG TAB PO SCH ×2 (12:13→19:35)
--- NOTE | 2020-05-10 12:35 | P.HPIM ---
History of Present Illness Patient was a 64-year-old male came in with complaints of fever cough and pleuritic chest pain. Patient the is bringing up whitish phlegm. Patient the nausea vomiting. Patient denied any recent exposure to cold but 19. Patient is found to have temperature of 101.5 here. Patient had a chest x-ray which showed interstitial changes and possible interstitial pneumonia. Patient denied any significant shortness of breath patient does smoke half a pack of cigarettes per day. Patient doesn't have any significant lymphopenia , ferritin is not elevated, pro-calcitonin 0.17 patient does have leukocytosis, patient denied orthopnea paroxysmal nocturnal dyspnea BNP is only 501. Review of Systems REVIEW OF SYSTEMS: CONSTITUTIONAL: As mentioned in HPI. HEENT: No recent visual problems or hearing problems. Denied any sore throat. CARDIOVASCULAR: No orthopnea, PND, no palpitations, no syncope. PULMONARY: No shortness of breath. GASTROINTESTINAL: No diarrhea, no nausea, no vomiting, no abdominal pain. NEUROLOGICAL: No headaches, no weakness, no numbness. HEMATOLOGICAL: Denies any bleeding or petechiae. GENITOURINARY: Denies any burning micturition, frequency, or urgency. MUSCULOSKELETAL/RHEUMATOLOGICAL: Denies any joint pain, swelling, or any muscle pain. ENDOCRINE: Denies any polyuria or polydipsia. The rest of the 14-point review of systems is negative. 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 Last Myocardial Infarction Date:: 2000 History of Any Multi-Drug Resistant Organisms: None Reported Past Surgical History: Tonsillectomy Additional Past Surgical History / Comment(s): cervical fusion x2 in 2005, bypass right leg artery Past Anesthesia/Blood Transfusion Reactions: No Reported Reaction Past Psychological History: No Psychological Hx Reported Smoking Status: Current every day smoker Past Alcohol Use History: None Reported Past Drug Use History: None Reported Additional Drug Use History / Comment(s): smokes 8 cigarettes a day Medications and Allergies Home Medications Medication Instructions Recorded Confirmed Type Dipyridamole-Aspirin 200-25 mg 1 tab PO BID 04/22/14 05/10/20 History [Aggrenox 25MG -200MG] Gabapentin 300 mg PO TID PRN 04/22/14 05/10/20 History Hydrocodone/Acetaminophen 1 tab PO TID PRN 04/22/14 05/10/20 History [Hydrocodone/Acetaminophen 10-325] cilostazoL [Pletal] 100 mg PO BID 04/22/14 05/10/20 History Atorvastatin Calcium [Lipitor] 40 mg PO HS 05/10/20 05/10/20 History Ibuprofen 800 mg PO Q8H PRN 05/10/20 05/10/20 History Metoprolol Tartrate 25 mg PO BID 05/10/20 05/10/20 History metFORMIN HCL [Glucophage] 500 mg PO BID 05/10/20 05/10/20 History methocarbamoL [Robaxin] 500 mg PO BID PRN 05/10/20 05/10/20 History Allergies Allergy/AdvReac Type Severity Reaction Status Date / Time No Known Allergies Allergy Verified 05/10/20 08:17 Physical Exam Vitals: Vital Signs Temp Pulse Pulse Resp BP BP Pulse Ox 05/10/20 10:16 99.0 F 05/10/20 08:53 18 05/10/20 07:00 100.5 F H 107 H 18 105/58 96 05/10/20 02:20 90 20 05/10/20 01:55 98.2 F 90 20 112/70 96 05/10/20 01:36 84 16 105/57 97 05/09/20 23:40 99.2 F 05/09/20 23:36 96 18 107/56 96 05/09/20 22:01 101.3 F H 105 H 18 103/57 95 Intake and Output 05/09/20 05/10/20 05/10/20 22:59 06:59 14:59 Intake Total 800 Output Total 1050 Balance -250 Intake: Intake, IV Titration 600 Amount Sodium Chloride 0.9% 1, 600 000 ml @ 100 mls/hr IV . Q10H [facility] Rx#:[id number] Oral 200 Output: Urine 1050 Other: Voiding Method Toilet Toilet # Voids 1 Weight 87.09 kg 87.09 kg PHYSICAL EXAMINATION: GENERAL: The patient is alert and oriented x3, not in any acute distress. Well developed, well nourished. HEENT: Pupils are round and equally reacting to light. EOMI. No scleral icterus. No conjunctival pallor. Normocephalic, atraumatic. No pharyngeal erythema. No thyromegaly. CARDIOVASCULAR: S1 and S2 present. No murmurs, rubs, or gallops. PULMONARY: Diffuse bilateral rhonchi ABDOMEN: Soft, nontender, nondistended, normoactive bowel sounds. No palpable organomegaly. MUSCULOSKELETAL: No joint swelling or deformity. EXTREMITIES: No cyanosis, clubbing, or pedal edema. NEUROLOGICAL: Gross neurological examination did not reveal any focal deficits. SKIN: No rashes. Note: Because of COVID 19 isolation, some of the history and physical exam findings or indirect and obtained from nursing staff, and other physician e xaminations to avoid unnecessary contact with the patient. Results CBC & Chem 7: 05/09/20 22:59 05/09/20 22:59 Labs: Abnormal Lab Results - Last 24 Hours (Table) 05/09/20 05/09/20 05/09/20 Range/Units 22:59 22:59 23:00 WBC 12.4 H (3.8-10.6) k/uL RBC 3.79 L (4.30-5.90) m/uL Hgb 11.6 L (13.0-17.5) gm/dL Hct 34.9 L (39.0-53.0) % Neutrophils # 9.7 H (1.3-7.7) k/uL Sodium 132 L (137-145) mmol/L Glucose 127 H (74-99) mg/dL POC Glucose (mg/dL) (75-99) mg/dL AST 16 L (17-59) U/L Procalcitonin 0.17 H (0.02-0.09) ng/mL Urine Blood (Negative) Urine RBC (0-5) /hpf Urine Mucus (None) /hpf 05/10/20 05/10/20 05/10/20 Range/Units 00:37 07:16 11:40 WBC (3.8-10.6) k/uL RBC (4.30-5.90) m/uL Hgb (13.0-17.5) gm/dL Hct (39.0-53.0) % Neutrophils # (1.3-7.7) k/uL Sodium (137-145) mmol/L Glucose (74-99) mg/dL POC Glucose (mg/dL) 117 H 123 H (75-99) mg/dL AST (17-59) U/L Procalcitonin (0.02-0.09) ng/mL Urine Blood Moderate H (Negative) Urine RBC 9 H (0-5) /hpf Urine Mucus Rare H (None) /hpf Assessment and Plan Plan: -Sepsis most probably secondary to pneumonia, Covid 19 need to be ruled out will also rule out atypical pneumonia will obtain urine Legionella antigen and mycoplasma IgM antibody and patient was started on levofloxacin. -COPD without any significant exacerbation, patient does smoke. Counseling regarding this was provided -Mild hypovolemic hyponatremia patient will continue on IV fluids and recheck the basic metabolic profile tomorrow -Tachycardia secondary to sepsis and fever. -Type 2 diabetes mellitus: Patient will be resumed on home regimen along with sl iding scale -Hyperlipidemia Hypertension -Coronary artery disease -DVT prophylaxis with Lovenox
--- NOTE | 2020-05-10 12:59 | P.CNPUL ---
History of Present Illness Reason for consult: dyspnea, cough, pneumonia Chief complaint: Fever cough shortness of breath History of present illness: This is a 64-year-old male with history of extensive smoking in the past lately have cut down to quarter pack per day he used to smoke more than one pack per day came into the hospital with ongoing fever spike up to 102 for one day duration also has intermittent dry cough and some shortness of breath patient describes some retrosternal pain but attributes to lifting heavy objects about a week ago, denies any hemoptysis denies any productive sputum production, patient denies any exposure to cold infection he is practicing social isolation, he is a retired lunch truck operator, patient does have multiple cardiovascular problem coronary artery disease and bypass surgery as well as hypertension hypertensive cardiovascular disease and diabetes mellitus, patient scored testing is pending, inflammatory parameters are being ordered, patient is currently being treated for atypical pneumonia, currently is afebrile oxygen is 96% or greater Review of Systems All systems: negative Past Medical History Past Medical History: COPD, CVA/TIA, Diabetes Mellitus, Hyperlipidemia, Hypertension, Myocardial Infarction ([place]) Additional Past Medical History / Comment(s): 2 strokes, residual effects recovered, most recent over 5 years ago; 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 Last Myocardial Infarction Date:: 2000 History of Any Multi-Drug Resistant Organisms: None Reported Past Surgical History: Tonsillectomy Additional Past Surgical History / Comment(s): cervical fusion x2 in 2005, bypass right leg artery Past Anesthesia/Blood Transfusion Reactions: No Reported Reaction Past Psychological History: No Psychological Hx Reported Smoking Status: Current every day smoker Past Alcohol Use History: None Reported Past Drug Use History: None Reported Additional Drug Use History / Comment(s): smokes 8 cigarettes a day Medications and Allergies Home Medications Medication Instructions Recorded Confirmed Type Dipyridamole-Aspirin 200-25 mg 1 tab PO BID 04/22/14 05/10/20 History [Aggrenox 25MG -200MG] Gabapentin 300 mg PO TID PRN 04/22/14 05/10/20 History Hydrocodone/Acetaminophen 1 tab PO TID PRN 04/22/14 05/10/20 History [Hydrocodone/Acetaminophen 10-325] cilostazoL [Pletal] 100 mg PO BID 04/22/14 05/10/20 History Atorvastatin Calcium [Lipitor] 40 mg PO HS 05/10/20 05/10/20 History Ibuprofen 800 mg PO Q8H PRN 05/10/20 05/10/20 History Metoprolol Tartrate 25 mg PO BID 05/10/20 05/10/20 History metFORMIN HCL [Glucophage] 500 mg PO BID 05/10/20 05/10/20 History methocarbamoL [Robaxin] 500 mg PO BID PRN 05/10/20 05/10/20 History Allergies Allergy/AdvReac Type Severity Reaction Status Date / Time No Known Allergies Allergy Verified 05/10/20 08:17 Physical Exam Vitals: Vital Signs Temp Pulse Pulse Resp BP BP Pulse Ox 05/10/20 10:16 99.0 F 05/10/20 08:53 18 05/10/20 07:00 100.5 F H 107 H 18 105/58 96 05/10/20 02:20 90 20 05/10/20 01:55 98.2 F 90 20 112/70 96 05/10/20 01:36 84 16 105/57 97 05/09/20 23:40 99.2 F 05/09/20 23:36 96 18 107/56 96 05/09/20 22:01 101.3 F H 105 H 18 103/57 95 Intake and Output 05/09/20 05/10/20 05/10/20 22:59 06:59 14:59 Intake Total 800 Output Total 1050 Balance -250 Intake: Intake, IV Titration 600 Amount Sodium Chloride 0.9% 1, 600 000 ml @ 100 mls/hr IV . Q10H [facility] Rx#:[id number] Oral 200 Output: Urine 1050 Other: Voiding Method Toilet Toilet # Voids 1 Weight 87.09 kg 87.09 kg - Constitutional General appearance: average body habitus, cooperative, disheveled - EENT Eyes: PERRLA ENT: hard of hearing Ears: bilateral: normal - Neck Neck: normal ROM Carotids: bilateral: upstroke normal Thyroid: bilateral: normal size - Respiratory Respiratory: bilateral: CTA - Cardiovascular Rhythm: regular Heart sounds: normal: S1, S2 - Gastrointestinal General gastrointestinal: normal bowel sounds - Integumentary Integumentary: normal - Neurologic Neurologic: CNII-XII intact - Musculoskeletal Musculoskeletal: gait normal, generalized weakness, strength equal bilaterally - Psychiatric Psychiatric: A&O x's 3, appropriate affect, intact judgment & insight Results - Laboratory Findings CBC and BMP: 05/09/20 22:59 05/09/20 22:59 PT/INR, D-dimer PT 10.3 sec (9.0-12.0) 05/09/20 22:59 INR 1.0 (<1.2) 05/09/20 22:59 Abnormal lab findings: Abnormal Labs 05/09/20 05/09/20 05/09/20 22:59 22:59 23:00 WBC 12.4 H RBC 3.79 L Hgb 11.6 L Hct 34.9 L Neutrophils # 9.7 H Sodium 132 L Glucose 127 H POC Glucose (mg/dL) AST 16 L Procalcitonin 0.17 H Urine Blood Urine RBC Urine Mucus 05/10/20 05/10/20 05/10/20 00:37 07:16 11:40 WBC RBC Hgb Hct Neutrophils # Sodium Glucose POC Glucose (mg/dL) 117 H 123 H AST Procalcitonin Urine Blood Moderate H Urine RBC 9 H Urine Mucus Rare H - Diagnostic Findings Chest x-ray: report reviewed, image reviewed (Finding as noted above somewhat prominent interstitium bilaterally slightly more pronounced lower lobe so right more than the left) Assessment and Plan Assessment: Bilateral interstitial pneumonia or prominent at the lower lobe [place] 19 pneumonia cannot be excluded History of coronary artery disease History of diabetes mellitus Hyponatremia and leukocytosis Hypertension hypertensive cardiovascular disease Plan: Follow-up on covid 19 pneumonia testing Continue supplemental oxygen Broad-spectrum IV antibiotics Follow-up on inflammatory parameters Antipyretics and analgesics Deep breathing exercises incentive spirometry Further recommendations pending plan of care as per clinical response of patient Time with Patient: Greater than 30
[2020-05-10 16:49] LABS: Glucose,Whole Blood 126 mg/dL (75-99)
[2020-05-10] MEDS: HYDROcodone/APAP 10-325MG 1 EACH TAB PO PRN (18:09)
[2020-05-10] MEDS: ATORVASTATIN 40 MG TAB PO SCH (19:35)
[2020-05-10 20:40] LABS: Glucose,Whole Blood 142 mg/dL (75-99)
[2020-05-11] MEDS: ACETAMINOPHEN TAB 325 MG TAB PO PRN (01:12)
[2020-05-11] MEDS: SODIUM CHLORIDE 0.9% 1,000 ML IV SCH ×3 (05:21→16:32)
[2020-05-11 07:01] LABS: Glucose,Whole Blood 148 mg/dL (75-99)
[2020-05-11 07:48] LABS: HCT 32.5 % (39.0-53.0); HGB 10.6 gm/dL (13.0-17.5); MCH 30.6 pg (25.0-35.0); MCHC 32.5 g/dL (31.0-37.0); MCV 94.2 fL (80.0-100.0); Mean Platelet Volume 6.8; Platelet Count 220 k/uL (150-450); RBC 3.45 m/uL (4.30-5.90); RDW 12.9 % (11.5-15.5); WBC 9.8 k/uL (3.8-10.6)
[2020-05-11 07:56] LABS: African American GFR (CKD) >90 (>60 ml/min/1.73 sqM); Anion Gap 6 mmol/L; Blood Urea Nitrogen 10 mg/dL (9-20); Calcium 8.3 mg/dL (8.4-10.2); Carbon Dioxide 24 mmol/L (22-30); Chloride 106 mmol/L (98-107); Glucose 130 mg/dL (74-99); Non-African American GFR(CKD) 89 (>60 ml/min/1.73 sqM); Sodium 136 mmol/L (137-145)
[2020-05-11] MEDS: METOPROLOL TARTRATE 25 MG TAB PO SCH ×2 (09:06→20:58)
[2020-05-11] MEDS: DIPYRIDAMOLE-ASPIRIN 200-25 MG 1 EACH CPMP.12HR PO SCH ×2 (09:06→20:58)
[2020-05-11] MEDS: cilostazoL 100 MG TAB PO SCH ×2 (09:06→20:58)
[2020-05-11] MEDS: INSULIN ASPART (NovoLOG) 100 UNIT/ML VIAL SQ SCH ×4 (09:07→21:11)
[2020-05-11] MEDS: ENOXAPARIN 40 MG/0.4 ML SYRINGE SQ SCH (09:07)
[2020-05-11] MEDS: HYDROcodone/APAP 10-325MG 1 EACH TAB PO PRN ×2 (09:17→19:25)
[2020-05-11] MEDS: NICOTINE 14MG/24HR PATCH TRANSDERM SCH (09:29)
[2020-05-11] MEDS: methocarbamoL 500 MG TAB PO PRN ×2 (09:35→20:59)
--- NOTE | 2020-05-11 10:24 | P.PN ---
Subjective Progress Note Date: 05/11/20 Principal diagnosis: Bilateral interstitial pneumonia or prominent at the lower lobe [place] 19 pneumonia cannot be excluded History of coronary artery disease History of diabetes mellitus Hyponatremia and leukocytosis Hypertension hypertensive cardiovascular disease 05/11/2020, patient seen eval examined during the rounds labs reviewed medications reviewed care plan discussed, denies any chest pain shortness of breath is improved, fever Petrin is improved as well, intermittent dry cough is present, aches and pains slightly better, covid19 test is still pending, white cell count is normalized, inflammatory parameters have reviewed C-reactive protein is elevated otherwise ferritin level d-dimer within normal limit This is a 64-year-old male with history of extensive smoking in the past lately have cut down to quarter pack per day he used to smoke more than one pack per day came into the hospital with ongoing fever spike up to 102 for one day duration also has intermittent dry cough and some shortness of breath patient describes some retrosternal pain but attributes to lifting heavy objects about a week ago, denies any hemoptysis denies any productive sputum production, patient denies any exposure to cold infection he is practicing social isolation, he is a retired overhauler bus truck, patient does have multiple cardiovascular problem coronary artery disease and bypass surgery as well as hypertension hypertensive cardiovascular disease and diabetes mellitus, patient scored testing is pending, inflammatory parameters are being ordered, patient is currently being treated for atypical pneumonia, currently is afebrile oxygen is 96% or greater Objective - Vital Signs Vital signs: Vital Signs Temp 98.8 F 05/11/20 07:00 Pulse 100 05/11/20 07:00 Resp 16 05/11/20 08:30 BP 105/62 05/11/20 07:00 Pulse Ox 96 05/11/20 07:00 Intake & Output 05/10/20 05/11/20 05/11/20 18:59 06:59 18:59 Intake Total 800 400 200 Output Total 1050 Balance -250 400 200 Intake: Intake, IV Titration 600 Amount Sodium Chloride 0.9% 1, 600 000 ml @ 100 mls/hr IV . Q10H [facility] Rx#:[id number] Oral 200 400 200 Output: Urine 1050 Other: Voiding Method Toilet Toilet Toilet # Voids 1 - Exam Constitutional General appearance: average body habitus, cooperative, disheveled - EENT Eyes: PERRLA ENT: hard of hearing Ears: bilateral: normal - Neck Neck: normal ROM Carotids: bilateral: upstroke normal Thyroid: bilateral: normal size - Respiratory Respiratory: bilateral: CTA - Cardiovascular Rhythm: regular Heart sounds: normal: S1, S2 - Gastrointestinal General gastrointestinal: normal bowel sounds - Integumentary Integumentary: normal - Neurologic Neurologic: CNII-XII intact - Musculoskeletal Musculoskeletal: gait normal, generalized weakness, strength equal bilaterally - Psychiatric Psychiatric: A&O x's 3, appropriate affect, intact judgment & insight - Labs CBC & Chem 7: 05/11/20 06:44 05/11/20 06:44 Labs: Abnormal Lab Results - Last 24 Hours (Table) 05/09/20 05/10/20 05/10/20 Range/Units 23:00 11:40 12:47 RBC (4.30-5.90) m/uL Hgb (13.0-17.5) gm/dL Hct (39.0-53.0) % Sodium (137-145) mmol/L Glucose (74-99) mg/dL POC Glucose (mg/dL) 123 H (75-99) mg/dL Calcium (8.4-10.2) mg/dL C-Reactive Protein 291.7 H (<10.0) mg/L Procalcitonin 0.17 H (0.02-0.09) ng/mL 05/10/20 05/10/20 05/11/20 Range/Units 16:47 20:37 06:44 RBC 3.45 L (4.30-5.90) m/uL Hgb 10.6 L (13.0-17.5) gm/dL Hct 32.5 L (39.0-53.0) % Sodium (137-145) mmol/L Glucose (74-99) mg/dL POC Glucose (mg/dL) 126 H 142 H (75-99) mg/dL Calcium (8.4-10.2) mg/dL C-Reactive Protein (<10.0) mg/L Procalcitonin (0.02-0.09) ng/mL 05/11/20 05/11/20 Range/Units 06:44 07:00 RBC (4.30-5.90) m/uL Hgb (13.0-17.5) gm/dL Hct (39.0-53.0) % Sodium 136 L (137-145) mmol/L Glucose 130 H (74-99) mg/dL POC Glucose (mg/dL) 148 H (75-99) mg/dL Calcium 8.3 L (8.4-10.2) mg/dL C-Reactive Protein (<10.0) mg/L Procalcitonin (0.02-0.09) ng/mL Microbiology - Last 24 Hours (Table) 05/09/20 23:02 Blood Culture - Preliminary Blood No Growth after 24 hours Assessment and Plan Assessment: Bilateral interstitial pneumonia or prominent at the lower lobe on initial admitted chest x-ray Covid19 pneumonia cannot be excluded History of coronary artery disease History of diabetes mellitus Hyponatremia and leukocytosis Hypertension hypertensive cardiovascular disease Plan: Follow-up on covid 19 pneumonia testing Continue supplemental oxygen Broad-spectrum IV antibiotics Follow-up on inflammatory parameters Antipyretics and analgesics Deep breathing exercises incentive spirometry Will get computed tomography scan of the chest without IV contrast confirmed presence of interstitial infiltrate/pneumonia Further recommendations pending plan of care as per clinical response of patient Time with Patient: Greater than 30
[2020-05-11 11:13] LABS: Glucose,Whole Blood 196 mg/dL (75-99)
--- NOTE | 2020-05-11 12:20 | CT ---
EXAMINATION TYPE: CT chest wo con DATE OF EXAM: 05/11/2020 COMPARISON: 07/20/2018 CT, chest x-ray 05/09/2020 HISTORY: Covid [address] DLP: 382.7 mGycm, Automated exposure control for dose reduction was used. CONTRAST: Performed injected with 0 mL of Isovue 300. TECHNIQUE: Axial images were obtained at 5 mm thick sections. Reconstructed images are reviewed on [email or web address] computer in the coronal plane. FINDINGS: Portion of the thyroid visualized is normal. Peripheral pneumonitis type changes typical for Covid are not evident. There is very minimal left ple ural effusion. There is a consolidation and/or mass at the posterior left apex. This measures 4.8 x 4.5 cm in size. Pneumonia is primary within the differential. This masslike area was not evident on the recent chest x-ray. No enlarged mediastinal or hilar adenopathy is evident. The ascending aorta diameter at the level o f the main pulmonary artery is 2.7 cm. The main pulmonary artery diameter at the bifurcation is 3.1 cm. Coronary artery calcification is noted. Limited CT sections are obtained through the upper abdomen. Abdomen is essentially unremarkable. IMPRESSIONS: 1. 4.5 x 4.8 cm consolidation most likely associated with pneumonia at the posterior left apex. 2. More typical findings for Covid are not apparent on the current exam.
[2020-05-11] MEDS: LEVOFLOXACIN 750MG-D5W PMX 750 MG in DEXTROSE/WATER 1 150ML.BAG IVPB SCH (12:21)
[2020-05-11 14:46] LABS: HCT 31.9 % (39.0-53.0); HGB 10.4 gm/dL (13.0-17.5); MCH 30.6 pg (25.0-35.0); MCHC 32.7 g/dL (31.0-37.0); MCV 93.7 fL (80.0-100.0); Mean Platelet Volume 6.6; Platelet Count 216 k/uL (150-450); RDW 12.9 % (11.5-15.5); WBC 9.3 k/uL (3.8-10.6)
[2020-05-11 16:29] LABS: Glucose,Whole Blood 119 mg/dL (75-99)
--- NOTE | 2020-05-11 20:04 | P.PN ---
Progress Note - Text Progress Note Date: 05/11/20 Presenting complaint: Fever, cough Interval history: Patient was a 64-year-old male came in with complaints of fever cough and pleuritic chest pain. Patient the is bringing up whitish phlegm. Patient the nausea vomiting. Patient denied any recent exposure to cold but 19. Patient is found to have temperature of 101.5 here. Patient had a chest x-ray which showed interstitial changes and possible interstitial pneumonia. Patient denied any significant shortness of breath patient does smoke half a pack of cigarettes per day. Admitted with pneumonia. Started on Levaquin. IV fluids. Today-sitting up in a chair. Feeling better. No fever since yesterday evening. Does not like hospital food. But hungry. at the bedside. Cough better. Review of systems: Was done for constitutional, cardiovascular, GI, pulmonary. relevant finding as above Active Medications Acetaminophen (Tylenol Tab) 650 mg PO Q6HR PRN PRN Reason: Mild Pain or Fever > 100.5 Last Admin: 05/11/20 01:12 Dose: 650 mg Documented by: Hydrocodone Bitart/Acetaminophen ([place] 10) 1 each PO TID PRN PRN Reason: Pain Last Admin: 05/11/20 19:25 Dose: 1 each Documented by: Atorvastatin Calcium (Lipitor) 40 mg PO HS [facility] Last Admin: 05/10/20 19:35 Dose: 40 mg Documented by: Cilostazol (Pletal) 100 mg PO BID [facility] Last Admin: 05/11/20 09:06 Dose: 100 mg Documented by: Dipyridamole/Aspirin (Aggrenox) 1 each PO BID [facility] Last Admin: 05/11/20 09:06 Dose: 1 each Documented by: Enoxaparin Sodium (Lovenox) 40 mg SQ DAILY [facility] Last Admin: 05/11/20 09:07 Dose: 40 mg Documented by: Gabapentin (Neurontin) 300 mg PO TID PRN PRN Reason: Pain Sodium Chloride (Saline 0.9%) 1,000 mls @ 100 mls/hr IV .Q10H [facility] Last Admin: 05/11/20 16:32 Dose: Not Given Documented by: Ibuprofen (Motrin) 400 mg PO Q6HR PRN PRN Reason: Mild Pain or Fever > 100.5 Insulin Aspart (Novolog) 0 unit SQ [facility]; Protocol Last Admin: 05/11/20 16:31 Dose: Not Given Documented by: Levofloxacin (Levaquin) 750 mg PO DAILY@1200 [facility] Methocarbamol (Robaxin) 500 mg PO BID PRN PRN Reason: Pain Last Admin: 05/11/20 09:35 Dose: 500 mg Documented by: Metoprolol Tartrate (Lopressor) 25 mg PO BID [facility] Last Admin: 05/11/20 09:06 Dose: 25 mg Documented by: Naloxone HCl (Narcan) 0.2 mg IV Q2M PRN PRN Reason: Opioid Reversal Nicotine (Habitrol 14mg/24hr Patch) 1 patch TRANSDERM DAILY [facility] Last Admin: 05/11/20 09:29 Dose: 1 patch Documented by: On examination: VITAL SIGNS: [98.8, 100, 17, 105/62, 96% room air] GENERAL APPEARANCE: Sitting up in a chair, comfortable. HEENT: Normal external appearance of nose and ear. Oral cavity normal EYES: Pupils equal. Conjunctiva normal. NECK: JVD not raised. Mass not palpable. RESPIRATORY: Respiratory effort increased. Lungs-decreased breath sounds. CARDIOVASCULAR: First and second sounds normal. No edema. ABDOMEN: Soft. Liver and spleen not palpable. No tenderness. No mass palpable. PSYCHIATRY: Alert and oriented x3. Mood and affect normal. INVESTIGATIONS, reviewed in the clinical context: White count 9.3 hemoglobin 10.4 CRP 293 Previous testing: White count 12.4 hemoglobin 11.6 sodium 132 potassium 3.7 Pro-calcitonin 0.17 COVID 19 P/Cr-not detected EKG-sinus tachycardia Chest x-ray bilateral interstitial infiltrates Assessment: -Bilateral pneumonia suspected gram-negative organism. Elevated pro-calcitonin. COVID 19 PCR negative. Elevated white count. No lymphopenia. -Chronic nicotine dependence patient cigarette smoker -Diabetes mellitus type 2 -Hyperlipidemia -Essential hypertension -Coronary artery disease with prior [place] Plan: Cholesterol the patient this afternoon the COVID 19 PCR was pending. Continue with antibiotics. Discussed with patient at length. Clinically improving. Another 24 hours in the hospital. Questions answered both to the patient and . Continue Levaquin.
[2020-05-11] MEDS: ATORVASTATIN 40 MG TAB PO SCH (20:59)
[2020-05-11 21:05] LABS: Glucose,Whole Blood 143 mg/dL (75-99)
[2020-05-12 07:27] LABS: Glucose,Whole Blood 162 mg/dL (75-99)
[2020-05-12 08:00] VITALS: BP 129/68; PULSE 101; RESP 16; TEMP 98.5
[2020-05-12] MEDS: NICOTINE 14MG/24HR PATCH TRANSDERM SCH (08:02)
[2020-05-12] MEDS: METOPROLOL TARTRATE 25 MG TAB PO SCH (08:03)
[2020-05-12] MEDS: DIPYRIDAMOLE-ASPIRIN 200-25 MG 1 EACH CPMP.12HR PO SCH (08:03)
[2020-05-12] MEDS: cilostazoL 100 MG TAB PO SCH (08:03)
[2020-05-12] MEDS: ENOXAPARIN 40 MG/0.4 ML SYRINGE SQ SCH (08:03)
[2020-05-12] MEDS: INSULIN ASPART (NovoLOG) 100 UNIT/ML VIAL SQ SCH (08:03)
[2020-05-12] MEDS: methocarbamoL 500 MG TAB PO PRN (08:40)
--- NOTE | 2020-05-12 11:31 | P.PN ---
Subjective Progress Note Date: 05/12/20 Principal diagnosis: Left upper lobe 4-5 cm masslike density differential diagnoses of pneumonic consolidation versus neoplasm Bilateral interstitial pneumonia or prominent at the lower lobe on initial admitted chest x-ray Covid19 pneumonia testing is negative History of coronary artery disease History of diabetes mellitus Hyponatremia and leukocytosis Hypertension hypertensive cardiovascular disease History of extensive smoking in the past Possible baseline COPD 05/12/2020, patient seen eval examined during the rounds labs reviewed medications reviewed computed tomography scan finding reviewed with the patient and at length, there is a large left upper lobe mass is seen not seen on the x-ray, differential diagnosis is a neoplastic processes versus pneumonia, patient is clinically significantly improved and remains afebrile for almost 48 hours denies any chest pain or shortness of breath wants to go home, overall plan is to repeat computed tomography scan in next few weeks and consideration of possible bronchoscopy and biopsy masses seen is still 05/11/2020, patient seen eval examined during the rounds labs reviewed medications reviewed care plan discussed, denies any chest pain shortness of breath is improved, fever Petrin is improved as well, intermittent dry cough is present, aches and pains slightly better, covid19 test is still pending, white cell count is normalized, inflammatory parameters have reviewed C-reactive protein is elevated otherwise ferritin level d-dimer within normal limit This is a 64-year-old male with history of extensive smoking in the past lately have cut down to quarter pack per day he used to smoke more than one pack per day came into the hospital with ongoing fever spike up to 102 for one day duration also has intermittent dry cough and some shortness of breath patient describes some retrosternal pain but attributes to lifting heavy objects about a week ago, denies any hemoptysis denies any productive sputum production, patient denies any exposure to cold infection he is practicing social isolation, he is a retired highway truck driver, patient does have multiple cardiovascular problem coronary artery disease and bypass surgery as well as hypertension hypertensive cardiovascular disease and diabetes mellitus, patient scored testing is pending, inflammatory parameters are being ordered, patient is currently being treated for atypical pneumonia, currently is afebrile oxygen is 96% or greater Objective - Vital Signs Vital signs: Vital Signs Temp 98.5 F 05/12/20 07:00 Pulse 101 H 05/12/20 07:00 Resp 16 08/25/20 07:00 BP 129/68 05/12/20 07:00 Pulse Ox 96 05/12/20 07:00 Intake & Output 05/11/20 05/12/20 05/12/20 18:59 06:59 18:59 Intake Total 650 1650 Output Total 400 Balance 650 1250 Intake: Intake, IV Titration 900 Amount Sodium Chloride 0.9% 1, 900 000 ml @ 100 mls/hr IV . Q10H [facility] Rx#:[id number] Oral 650 750 Output: Urine 400 Other: Voiding Method Toilet Toilet Toilet # Voids 2 2 - Exam Constitutional General appearance: average body habitus, cooperative, disheveled - EENT Eyes: PERRLA ENT: hard of hearing Ears: bilateral: normal - Neck Neck: normal ROM Carotids: bilateral: upstroke normal Thyroid: bilateral: normal size - Respiratory Respiratory: bilateral: CTA - Cardiovascular Rhythm: regular Heart sounds: normal: S1, S2 - Gastrointestinal General gastrointestinal: normal bowel sounds - Integumentary Integumentary: normal - Neurologic Neurologic: CNII-XII intact - Musculoskeletal Musculoskeletal: gait normal, generalized weakness, strength equal bilaterally - Psychiatric Psychiatric: A&O x's 3, appropriate affect, intact judgment & insight - Labs CBC & Chem 7: 05/11/20 14:22 05/11/20 06:44 Labs: Abnormal Lab Results - Last 24 Hours (Table) 05/11/20 05/11/20 05/11/20 Range/Units 06:44 14:22 16:28 RBC 3.40 L (4.30-5.90) m/uL Hgb 10.4 L (13.0-17.5) gm/dL Hct 31.9 L (39.0-53.0) % POC Glucose (mg/dL) 119 H (75-99) mg/dL C-Reactive Protein 293.3 H (<10.0) mg/L 05/11/20 05/12/20 Range/Units 21:04 07:25 RBC (4.30-5.90) m/uL Hgb (13.0-17.5) gm/dL Hct (39.0-53.0) % POC Glucose (mg/dL) 143 H 162 H (75-99) mg/dL C-Reactive Protein (<10.0) mg/L Microbiology - Last 24 Hours (Table) 05/11/20 09:22 Gram Stain - Preliminary Sputum Sputum Culture - Preliminary 05/09/20 23:02 Blood Culture - Preliminary Blood No Growth after 48 hours Assessment and Plan Assessment: Left upper lobe 4-5 cm masslike density differential diagnoses of pneumonic consolidation versus neoplasm Bilateral interstitial pneumonia or prominent at the lower lobe on initial admitted chest x-ray Covid19 pneumonia testing is negative History of coronary artery disease History of diabetes mellitus Hyponatremia and leukocytosis Hypertension hypertensive cardiovascular disease History of extensive smoking in the past Possible baseline COPD Plan: Agri with discharge planning on Levaquin 750 mg daily follow-up in outpatient care plan discussed with the patient and if density in the left upper lobe still there and repeat computed tomography scan consider bronchoscopy and biopsy Continue supplemental oxygen Deep breathing exercises incentive spirometry Reviewed computed tomography scan of the chest Further recommendations pending plan of care as per clinical response of patient Time with Patient: Greater than 30
[2020-05-12] MEDS ORDERED: LEVOFLOXACIN 750 MG TAB PO SCH (12:00)
--- NOTE | 2020-05-12 19:46 | P.DS ---
Providers Date of admission: 05/10/20 01:07 Expected date of discharge: 05/12/20 Attending physician: Collins Jimenez Consults: 05/10/20 12:24 Consult Physician Routine Consulting Provider: Tong Sharpe Consult Reason/Comments: Pneumonia Do you want consulting provider notified?: Yes Primary care physician: [facility] Course: Presenting complaint: Fever, cough Interval history: Patient was a 64-year-old male came in with complaints of fever cough and pleuritic chest pain. Patient the is bringing up whitish phlegm. Patient the nausea vomiting. Patient denied any recent exposure to cold but 19. Patient is found to have temperature of 101.5 here. Patient had a chest x-ray which showed interstitial changes and possible interstitial pneumonia. Patient denied any significant shortness of breath patient does smoke half a pack of cigarettes per day. Admitted with pneumonia. Started on Levaquin. IV fluids. COVID 19 ruled out. Today-feeling well. No respiratory symptoms. Eating well. Up and about. Afebrile. Complete course of antibiotic at home. Consultation: Dr. Edel Sharpe from pulmonary On examination: VITAL SIGNS: 98.5, 101, 16, 129/68, 96% room air GENERAL APPEARANCE: Sitting up in a chair, comfortable. HEENT: Normal external appearance of nose and ear. Oral cavity normal EYES: Pupils equal. Conjunctiva normal. NECK: JVD not raised. Mass not palpable. RESPIRATORY: Respiratory effort normal. Lungs-decreased breath sounds. CARDIOVASCULAR: First and second sounds normal. No edema. ABDOMEN: Soft. Liver and spleen not palpable. No tenderness. No mass palpable. PSYCHIATRY: Alert and oriented x3. Mood and affect normal. INVESTIGATIONS, reviewed in the clinical context: White count 9.3 hemoglobin 10.4 CRP 293 Previous testing: White count 12.4 hemoglobin 11.6 sodium 132 potassium 3.7 Pro-calcitonin 0.17 COVID 19 P/Cr-not detected EKG-sinus tachycardia Chest x-ray bilateral interstitial infiltrates Urine Legionella antigen negative Assessment: -Bilateral pneumonia suspected gram-negative organism. Elevated pro-calcitonin. COVID 19 PCR negative. Elevated white count. No lymphopenia.-Improved -Chronic nicotine dependence patient cigarette smoker -Diabetes mellitus type 2 -Hyperlipidemia -Essential hypertension -Coronary artery disease with prior [place] -Normocytic anemia further workup as an outpatient by PCP Disposition: Home Patient Condition at Discharge: Stable Plan - Discharge Summary Discharge Rx Participant: No New Discharge Prescriptions: New Nicotine 14Mg/24Hr Patch [Habitrol] 1 patch TRANSDERM DAILY #14 patch Levofloxacin [Levaquin] 750 mg PO DAILY@1200 #3 tab Continue Hydrocodone/Acetaminophen [Hydrocodone/Acetaminophen 10-325] 1 tab PO TID PRN PRN Reason: Pain Gabapentin 300 mg PO TID PRN PRN Reason: Pain Dipyridamole-Aspirin 200-25 mg [Aggrenox 25MG -200MG] 1 tab PO BID cilostazoL [Pletal] 100 mg PO BID Atorvastatin Calcium [Lipitor] 40 mg PO HS Ibuprofen 800 mg PO Q8H PRN PRN Reason: Pain metFORMIN HCL [Glucophage] 500 mg PO BID methocarbamoL [Robaxin] 500 mg PO BID PRN PRN Reason: Pain Metoprolol Tartrate 25 mg PO BID Discharge Medication List Dipyridamole-Aspirin 200-25 mg [Aggrenox 25MG -200MG] 1 tab PO BID 04/22/14 [History] Gabapentin 300 mg PO TID PRN 04/22/14 [History] Hydrocodone/Acetaminophen [Hydrocodone/Acetaminophen 10-325] 1 tab PO TID PRN 04/22/14 [History] cilostazoL [Pletal] 100 mg PO BID 04/22/14 [History] Atorvastatin Calcium [Lipitor] 40 mg PO HS 05/10/20 [History] Ibuprofen 800 mg PO Q8H PRN 05/10/20 [History] Metoprolol Tartrate 25 mg PO BID 05/10/20 [History] metFORMIN HCL [Glucophage] 500 mg PO BID 05/10/20 [History] methocarbamoL [Robaxin] 500 mg PO BID PRN 05/10/20 [History] Levofloxacin [Levaquin] 750 mg PO DAILY@1200 #3 tab 05/12/20 [Rx] Nicotine 14Mg/24Hr Patch [Habitrol] 1 patch TRANSDERM DAILY #14 patch 05/12/20 [Rx] Follow up Appointment(s)/Referral(s): Mateusz Trevino DO [Primary Care Provider] - 1-2 days (office will call with appointment time) Tong Sharpe MD [STAFF PHYSICIAN] - 05/26/20 1:15 pm Patient Instructions/Handouts: Pneumonia (DC) Discharge Disposition: HOME SELF-CARE
--- NOTE | 2020-05-14 11:51 | CDI ---
Documentation Clarification Form Date: 05/14/20 From: Marta Vogel Phone: If you have a question about this query, please contact Citlalli Macdonald Coal Sample Tester at [phone] between 8am and 5pm. Admit Date: 05/10/20 Discharge Date:05/12/20 Patient Name: Oneil Simmons Visit Number: [id number] ATTENTION: The Clinical Documentation Specialists (CDI) and [facility] Coding Staff appreciate your assistance in clarifying documentation. Please respond to the clarification below the line at the bottom and electronically sign. The CDI & [facility] Coding staff will review the response and follow-up if needed. Please note: Queries are made part of the Legal Health Record. If you have any questions, please contact the author of this message via ITS. Dear Dr. Jimenez The patient presented with the following: pleuritic chest pain, fever and a cough History/Risk Factors: Pneumonia Clinical Indicators: Elevated WBC, tachycardia and fever WBC: 12.4 Lactic acid: 0.9 Blood cultures: No growth Vitals signs on admission: T. 101.3, P. 105, R. 18, BP 103/57 Treatment: Antibiotics: IV Levaquin, IV Bolus: 1/2 liter of NS then at 100 mls/hr In your professional opinion, please clarify if these findings signify one of the following conditions, if known: Condition Sepsis ruled out SIRS, without underlying infectious process Sepsis Other, please specify Unable to determine Sepsis, from pneumonia, POA MTDD
[2020-05-15 06:02] LABS: Mycoplasma IgG Antibody (EIA) 0.77 INDEX (<=0.90); Mycoplasma IgM Antibody 0.01 INDEX (<=0.90)
== END 2020-05-12 11:27 | disposition home or self-care (01) | DRG 871 ==
LOC: EC 21:58 → 4SSUR 05-10 01:07
PROVIDERS: ADMIT Hospitalist; ATTEND Hospitalist
DX: A41.50 Gram-negative sepsis, unspecified (principal); J15.6 Pneumonia due to other Gram-negative bacteria; E87.1 Hypo-osmolality and hyponatremia; J44.0 Chronic obstructive pulmonary disease with (acute) lower respiratory infection; J84.9 Interstitial pulmonary disease, unspecified; I11.9 Hypertensive heart disease without heart failure; E11.9 Type 2 diabetes mellitus without complications; E78.5 Hyperlipidemia, unspecified; E86.1 Hypovolemia; F17.210 Nicotine dependence, cigarettes, uncomplicated; I25.10 Atherosclerotic heart disease of native coronary artery without angina pectoris; I25.2 Old myocardial infarction; H91.90 Unspecified hearing loss, unspecified ear; D64.9 Anemia, unspecified; R91.8 Other nonspecific abnormal finding of lung field; I69.398 Other sequelae of cerebral infarction; H54.7 Unspecified visual loss; Z20.828 Contact with and (suspected) exposure to other viral communicable diseases; Z79.02 Long term (current) use of antithrombotics/antiplatelets; Z79.82 Long term (current) use of aspirin; Z79.84 Long term (current) use of oral hypoglycemic drugs; Z79.899 Other long term (current) drug therapy; Z90.89 Acquired absence of other organs; Z95.1 Presence of aortocoronary bypass graft
CPT/HCPCS: 36415; 71045; 71250; 80048; 80053; 81001; 82550; 82728; 83605; 83880; 84145; 84484; 85025; 85027; 85379; 85610; 85730; 86140; 86738; 87040; 87070; 87205; 87449; 93005; 96361; 96365; 96375; 99285

== ENCOUNTER → 2020-05-15 | Outpatient (CLI) | payer MEDICAID, MEDICARE ==
[2020-05-15 13:41] LABS: HCT 33.5 % (39.0-53.0); MCH 30.9 pg (25.0-35.0); MCHC 32.7 g/dL (31.0-37.0); MCV 94.3 fL (80.0-100.0); Mean Platelet Volume 6.7; Platelet Count 369 k/uL (150-450); RBC 3.55 m/uL (4.30-5.90); RDW 12.9 % (11.5-15.5); WBC 8.4 k/uL (3.8-10.6)
--- NOTE | 2020-05-15 15:38 | XR ---
EXAMINATION TYPE: XR chest 2V DATE OF EXAM: 05/15/2020 CLINICAL HISTORY: Pneumonia TECHNIQUE: Frontal and lateral views of the chest are obtained. COMPARISON: 05/09/[address] chest 05/11/2020. FINDINGS: Cervical spine fixation hardware. Left upper lung apical airspace opacity with air bronchog brissa increased in conspicuity versus 05/09/2020 chest regressed comparison. No pneumothorax or pleural effusion. The cardiomediastinal silhouette is within normal limits for size. Pulmonary vasculature i s normal. Multilevel bridging osteophytosis of the visualized spine. IMPRESSION: Left upper lung apical airspace opacity with air bronchograms is mildly increased versus 05/09/2020 chest radiograph comparison. Follow-up to resolution is recommended.
[2020-05-15 20:09] LABS: % Iron Saturation 7.44 (15.00-50.00); Ferritin 118.8 ng/mL (22.0-322.0)
== END | disposition home or self-care (01) ==
LOC: LABWHC1 12:14
PROVIDERS: ATTEND Family Medicine
DX: J18.9 Pneumonia, unspecified organism (principal); D64.9 Anemia, unspecified
CPT/HCPCS: 36415; 71046; 82728; 83540; 83550; 85027

== ENCOUNTER → 2020-05-19 | Outpatient (CLI) | payer MEDICAID, MEDICARE ==
--- NOTE | 2020-05-19 17:12 | XR ---
EXAMINATION TYPE: XR chest 2V DATE OF EXAM: 05/19/2020 CLINICAL HISTORY: Pneumonia TECHNIQUE: Frontal and lateral views of the chest are obtained. COMPARISON: 05/15/2020 chest radiograph. 05/11/2020 CT chest. FINDINGS: Persistent left upper lung airspace opacity with slightly less conspicuous appearance vers us 05/15/2020 comparison. This opacity is better appreciated on 05/11/2020 CT comparison. The cardiomed iastinal silhouette is within normal limits for size. Pulmonary vasculature is normal. There is no pl eural effusion or pneumothorax seen. Moriah changes of the spine. Cervical spine fixation hardware. IMPRESSION: Left upper lung focal airspace opacity is slightly less conspicuous on current exam versu s 05/15/[address] chest follow-up to resolution is recommended.
== END | disposition home or self-care (01) ==
LOC: RAD 15:06
PROVIDERS: ATTEND Family Medicine
DX: J18.9 Pneumonia, unspecified organism (principal)
CPT/HCPCS: 71046

== ENCOUNTER → 2020-05-21 | Outpatient (CLI) | payer MEDICAID, MEDICARE ==
[2020-05-21 15:04] LABS: Basophils # (A) 0.1 k/uL (0-0.2); Basophils % (A) 1 %; Eosinophils # (A) 0.2 k/uL (0-0.7); Eosinophils % (A) 2 %; HCT 36.9 % (39.0-53.0); HGB 11.6 gm/dL (13.0-17.5); Hypochromasia Slight; Lymphocytes # (A) 1.6 k/uL (1.0-4.8); Lymphocytes % (A) 19 %; MCH 29.9 pg (25.0-35.0); MCHC 31.6 g/dL (31.0-37.0); MCV 94.7 fL (80.0-100.0); Mean Platelet Volume 6.5; Monocytes # (A) 0.4 k/uL (0-1.0); Monocytes % (A) 5 %; Neutrophils % (A) 72 %; Platelet Count 518 k/uL (150-450); RBC 3.89 m/uL (4.30-5.90); RDW 12.9 % (11.5-15.5); WBC 8.4 k/uL (3.8-10.6)
[2020-05-21 19:20] LABS: African American GFR (CKD) 72.6 (60.0-200.0); Anion Gap 5.7 mmol/L (4.00-12.00); Carbon Dioxide 26.3 mmol/L (21.6-31.8); Non-African American GFR(CKD) 62.6 (60.0-200.0); Potassium 4.6 mmol/L (3.5-5.5)
== END | disposition home or self-care (01) ==
LOC: LABWHC1 13:33
PROVIDERS: ATTEND Family Medicine
DX: D50.9 Iron deficiency anemia, unspecified (principal); I10 Essential (primary) hypertension
CPT/HCPCS: 36415; 80048; 84450; 84460; 85025

== ENCOUNTER → 2020-07-02 | Outpatient (CLI) | payer MEDICAID, MEDICARE ==
[2020-07-02 15:58] LABS: HCT 41.5 % (39.0-53.0); HGB 13.7 gm/dL (13.0-17.5); MCH 31.4 pg (25.0-35.0); MCHC 33.1 g/dL (31.0-37.0); Mean Platelet Volume 6.4; Platelet Count 314 k/uL (150-450); RBC 4.37 m/uL (4.30-5.90); RDW 13.5 % (11.5-15.5); WBC 8.6 k/uL (3.8-10.6)
[2020-07-02 16:12] LABS: Calcium 9.4 mg/dL (8.4-10.2); Potassium 4.2 mmol/L (3.5-5.1)
--- NOTE | 2020-07-03 09:25 | CT ---
EXAMINATION TYPE: CT chest w con DATE OF EXAM: 07/02/2020 COMPARISON: CT chest 05/11/2020, 07/20/2018. MR lumbar spine 03/27/2018. HISTORY: Lung nodule f/u CT DLP: 348.5 mGycm Automated exposure control for dose reduction was used. CONTRAST: CT scan of the chest is performed with IV Contrast, patient injected with 100 mL of Isovue 300. FINDINGS: LUNGS: There has been near complete resolution of the left upper lobe consolidation demonstrated on comparison, with persistent ground glass opacity. Calcified granuloma of the right lower lob e. No concerning parenchymal mass or nodule identified. No pleural effusion. No pneumothorax. The tra cheobronchial tree is patent. MEDIASTINUM/SOFT TISSUES: 11 mm right hilar lymph node. No axillary or mediastinal lymphadenopathy gr eater than 1 cm. Cardiac size is normal. Calcified coronary artery disease. No pericardial effusion. No thoracic aortic aneurysm. UPPER ABDOMEN: No adrenal nodule. Redemonstrated right renal cyst. OSSEOUS: Anterior fusion hardware of the inferior visualized cervical spine. Degenerative changes of the shoulders, left greater than right. Degenerative changes of the spine. IMPRESSION: 1. Near complete resolution of the left upper lobe consolidation from 05/11/2020 comparison. Persiste nt groundglass opacities. Recommend follow-up to resolution. 2. 11 mm right hilar lymphadenopathy may be reactive. Attention on follow-up imaging.
== END | disposition home or self-care (01) ==
LOC: RADCTMAIN 15:34
PROVIDERS: ATTEND Internal Medicine Sleep Medicine
DX: R91.8 Other nonspecific abnormal finding of lung field (principal); R59.1 Generalized enlarged lymph nodes; D64.9 Anemia, unspecified
CPT/HCPCS: 80048; 85027; 71260; 36415; Q9967

== ENCOUNTER 2020-07-27 15:20 | Emergency (ER) | payer MEDICAID, MEDICARE ==
[2020-07-27 15:54] VITALS: RESP 18; TEMP 98.3
[2020-07-27] MEDS ORDERED: MORPHINE SULFATE 4 MG/ML SYRINGE IVP STA (16:49)
[2020-07-27] MEDS ORDERED: SODIUM CHLORIDE 0.9% 500 ML 500 ML IV ONE (16:49)
[2020-07-27 17:27] LABS: Basophils # (A) 0.1 k/uL (0-0.2); Basophils % (A) 1 %; Eosinophils # (A) 0.3 k/uL (0-0.7); Eosinophils % (A) 4 %; HCT 42.1 % (39.0-53.0); Lymphocytes # (A) 2.1 k/uL (1.0-4.8); Lymphocytes % (A) 24 %; MCHC 33.4 g/dL (31.0-37.0); MCV 92.8 fL (80.0-100.0); Mean Platelet Volume 6.3; Monocytes # (A) 0.7 k/uL (0-1.0); Monocytes % (A) 7 %; Neutrophils # (A) 5.5 k/uL (1.3-7.7); Neutrophils % (A) 63 %; Platelet Count 325 k/uL (150-450); RBC 4.53 m/uL (4.30-5.90); RDW 13.5 % (11.5-15.5); WBC 8.7 k/uL (3.8-10.6)
--- NOTE | 2020-07-27 17:31 | ED ---
General Adult HPI - General Chief complaint: Extremity Injury, Lower Stated complaint: Leg pain/Fall 6ft ladder yesterday Time Seen by Provider: 07/27/20 16:35 Source: patient, family, RN notes reviewed, old records reviewed Mode of arrival: wheelchair Limitations: no limitations - History of Present Illness Initial comments: 64-year-old male presenting for evaluation of right leg pain. Patient's pain began in his thigh approximately one week ago over the past week this has worsened and travels all the way from his thigh to his foot on the right. He states that he has had pain in this leg in its entirety for the past 3 days. He has history of peripheral vascular disease and had remote history of bypass jhoana the right. He does follow with vascular surgery at [facility]. He reports that he typically has claudication symptoms in both of his legsbut states that this pain is worse on the right. He had a fall yesterday which occurred from a ladder he was painting, the pain became more severe in the leg causing him to fall onto his right hip and striking his head. There was no loss consciousness. - Related Data Home Medications Medication Instructions Recorded Confirmed Dipyridamole-Aspirin 200-25 mg 1 tab PO BID 04/22/14 07/27/20 [Aggrenox 25MG -200MG] Gabapentin 300 mg PO TID PRN 04/22/14 07/27/20 Hydrocodone/Acetaminophen 1 tab PO TID PRN 04/22/14 07/27/20 [Hydrocodone/Acetaminophen 10-325] cilostazoL [Pletal] 100 mg PO BID 04/22/14 07/27/20 Atorvastatin Calcium [Lipitor] 40 mg PO HS 05/10/20 07/27/20 Ibuprofen 800 mg PO Q12H PRN 05/10/20 07/27/20 Metoprolol Tartrate 25 mg PO BID 05/10/20 07/27/20 metFORMIN HCL [Glucophage] 500 mg PO BID 05/10/20 07/27/20 methocarbamoL [Robaxin] 500 mg PO BID PRN 05/10/20 07/27/20 Cholecalciferol [Vitamin D3 (25 1,000 unit PO HS 07/27/20 07/27/20 Mcg = 1000 Iu)] Ferrous Sulfate [Feosol] 325 mg PO QAM 07/27/20 07/27/20 Previous Rx's Medication Instructions Recorded HYDROcodone/APAP 5-325MG [[place] 1 tab PO Q6HR PRN #12 tab 07/27/20 5-325] Allergies Allergy/AdvReac Type Severity Reaction Status Date / Time No Known Allergies Allergy Verified 07/27/20 17:23 Review of Systems ROS Statement: Those systems with pertinent positive or pertinent negative responses have been documented in the HPI. ROS Other: All systems not noted in ROS Statement are negative. 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 Last Myocardial Infarction Date:: 2000 History of Any Multi-Drug Resistant Organisms: None Reported Past Surgical History: Tonsillectomy Additional Past Surgical History / Comment(s): cervical fusion x2 in 2005, bypass right leg artery Past Anesthesia/Blood Transfusion Reactions: No Reported Reaction Past Psychological History: No Psychological Hx Reported Smoking Status: Current every day smoker Past Alcohol Use History: None Reported Past Drug Use History: None Reported General Exam Limitations: no limitations General appearance: alert, in no apparent distress Head exam: Present: atraumatic, normocephalic Eye exam: Present: normal appearance, PERRL ENT exam: Present: normal exam Neck exam: Present: normal inspection. Absent: tenderness, meningismus Respiratory exam: Present: normal lung sounds bilaterally. Absent: respiratory distress, wheezes Cardiovascular Exam: Present: regular rate, normal rhythm GI/Abdominal exam: Present: soft. Absent: distended, tenderness, guarding Extremities exam: Present: normal capillary refill, other (right lower extremity, well-healed surgical incision, no erythema, no induration, normal cap refill, the entire extremity is warm. There are no palpable pulses in the foot. But Doppler signal are present.). Absent: pedal edema Course Vital Signs 07/27/20 07/27/20 15:49 19:46 Temperature 98.3 F Pulse Rate 95 82 Respiratory 18 18 Rate Blood Pressure 152/62 171/97 O2 Sat by Pulse 97 97 Oximetry Medical Decision Making - Medical Decision Making 64 yo male with right leg pain which is been going on for one week and fall which occurred yesterday. Workup for the patient's traumatic injuries is negative, no acute bony abnormality in the lumbar spine or right hip. His cervical spine is negative for fracture subluxation, head CT negative for intracranial hemorrhage or mass effect. Patient has normal CBC, normal CMP, no signs of metabolic acidosis. Regarding the patient's leg and vascular history, he has a palpable femoral pulse, he has a Doppler signal at the popliteal and a Doppler signal at the DP and PT. He has good cap refill in the extremity is warm. His ultrasound for DVT is negative. Because the patient had contacted his vascular surgeon with these complaints and was instructed to present to the emergency department I did discuss the case with his vascular surgeon Dr. Cool. patient currently does have an appointment for later this week however there may be an issue at the office secondary to coronavirus. Given this the patient is informed and is given vascular surgery follow-up at this institution. - Lab Data Result diagrams: 07/27/20 16:53 07/27/20 16:53 Lab Results 07/27/20 07/27/20 07/27/20 Range/Units 16:53 16:53 16:53 WBC 8.7 (3.8-10.6) k/uL RBC 4.53 (4.30-5.90) m/uL Hgb 14.0 (13.0-17.5) gm/dL Hct 42.1 (39.0-53.0) % MCV 92.8 (80.0-100.0) fL MCH 31.0 (25.0-35.0) pg MCHC 33.4 (31.0-37.0) g/dL RDW 13.5 (11.5-15.5) % Plt Count 325 (150-450) k/uL Neutrophils % 63 % Lymphocytes % 24 % Monocytes % 7 % Eosinophils % 4 % Basophils % 1 % Neutrophils # 5.5 (1.3-7.7) k/uL Lymphocytes # 2.1 (1.0-4.8) k/uL Monocytes # 0.7 (0-1.0) k/uL Eosinophils # 0.3 (0-0.7) k/uL Basophils # 0.1 (0-0.2) k/uL PT 9.7 (9.0-12.0) sec INR 0.9 (<1.2) APTT 23.1 (22.0-30.0) sec Sodium 137 (137-145) mmol/L Potassium 4.3 (3.5-5.1) mmol/L Chloride 107 (98-107) mmol/L Carbon Dioxide 23 (22-30) mmol/L Anion Gap 7 mmol/L BUN 15 (9-20) mg/dL Creatinine 1.05 (0.66-1.25) mg/dL Est GFR (CKD-EPI)AfAm 86 (>60 ml/min/1.73 sqM) Est GFR (CKD-EPI)NonAf 74 (>60 ml/min/1.73 sqM) Glucose 110 H (74-99) mg/dL Calcium 9.3 (8.4-10.2) mg/dL Total Bilirubin 0.4 (0.2-1.3) mg/dL AST 17 (17-59) U/L ALT 12 (4-49) U/L Alkaline Phosphatase 69 (38-126) U/L Total Protein 7.0 (6.3-8.2) g/dL Albumin 4.2 (3.5-5.0) g/dL Disposition Clinical Impression: Fall, Peripheral vascular disease Disposition: ADMITTED IP TO [facility] Condition: Stable Instructions (If sedation given, give patient instructions): Peripheral Vascular Disease (ED), Contusion in Adults (ED) Prescriptions: HYDROcodone/APAP 5-325MG [[place] 5-325] 1 tab PO Q6HR PRN #12 tab PRN Reason: Pain Is patient prescribed a controlled substance at d/c from ED?: No Referrals: Mateusz Trevino DO [Primary Care Provider] - 1-2 days Bar Cabrera DO [Doctor of Osteopathic Medicine] - 1-2 days Time of Disposition: 20:22
[2020-07-27 17:32] LABS: INR 0.9 (<1.2); Partial Thromboplastin Time 23.1 sec (22.0-30.0); Prothrombin Time 9.7 sec (9.0-12.0)
[2020-07-27 17:38] LABS: Albumin 4.2 g/dL (3.5-5.0); Calcium 9.3 mg/dL (8.4-10.2); Potassium 4.3 mmol/L (3.5-5.1); Total Bilirubin 0.4 mg/dL (0.2-1.3)
--- NOTE | 2020-07-27 17:59 | CT ---
EXAMINATION TYPE: CT brain opal hoyos con DATE OF EXAM: 07/27/2020 COMPARISON: CT brain 04/30/2011 HISTORY: Fall. Head and neck pain. CT DLP: 1509.1 mGycm Automated exposure control for dose reduction was used. Ventricles have normal size. There is no mass effect nor midline shift. There is no sign of intracran ial hemorrhage. There is no evidence of cerebral edema. The calvarium is intact. The skull base is in tact. There is fairly normal aeration of the mastoid sinuses. There is normal alignment of the cervical vertebra. There is multilevel anterior fusion surgery from C4 to C7. There is moderate anterior spurring at C7-T1 and T1-T2. There is multilevel cervical facet arthropathy. There is no evidence of cervical spine fracture. There is posterior disc bulging and katie cification at C3-4 with some narrowing of the spinal canal. Canal measures 7 mm at C3-4. IMPRESSION: Negative CT scan of the brain. No change. Spondylotic changes in the cervical spine with multilevel fusion surgery. Mild relative spinal stenos is at C3-4. No fracture seen.
--- NOTE | 2020-07-27 18:39 | US ---
EXAMINATION TYPE: US venous doppler duplex LE RT DATE OF EXAM: 07/27/2020 6:24 PM COMPARISON: US 2010 CLINICAL HISTORY: pain. Right leg pain x couple days, patient on blood thinners SIDE PERFORMED: Right TECHNIQUE: The lower extremity deep venous system is examined utilizing real time linear array sonog cadence with graded compression, doppler sonography and color-flow sonography. VESSELS IMAGED: External Iliac Vein (EIV) Common Femoral Vein Deep Femoral Vein Greater Saphenous Vein * Femoral Vein Popliteal Vein Small Saphenous Vein * Proximal Calf Veins (* superficial vessels) Right Leg: Appears negative for DVT IMPRESSION: No evidence of deep vein thrombosis in the right leg.
[2020-07-27] MEDS ORDERED: HYDROcodone/APAP 5-325MG 1 EACH TAB PO STA (19:09)
--- NOTE | 2020-07-27 19:12 | XR ---
EXAMINATION TYPE: XR pelvis AP view DATE OF EXAM: 07/27/2020 COMPARISON: NONE HISTORY: Fall. Pain. TECHNIQUE: Single view FINDINGS: The pelvic ring is intact. Proximal femurs and hip joints are intact. Sacroiliac joints valarie ear normal. IMPRESSION: Negative exam. No fracture seen. Mild acetabular spurring noted.
--- NOTE | 2020-07-27 19:27 | XR ---
EXAMINATION TYPE: XR lumbar spine 2 or 3V DATE OF EXAM: 07/27/2020 COMPARISON: NONE HISTORY: Fall. Back pain TECHNIQUE: 3 views FINDINGS: Lumbar vertebra have normal alignment. There is spurring anteriorly throughout the lumbar s pine. There is no compression fracture. Sacroiliac joints are intact. I see no bony destructive proce ss. IMPRESSION: Multilevel spondylotic changes. No fracture seen. No significant disc space narrowing.
[2020-07-27 20:40] VITALS: BP 148/68; PULSE 77
== END 2020-07-27 20:40 | disposition other institution (70) ==
LOC: EC 15:20
DX: E11.51 Type 2 diabetes mellitus with diabetic peripheral angiopathy without gangrene (principal); F17.200 Nicotine dependence, unspecified, uncomplicated; E78.5 Hyperlipidemia, unspecified; I10 Essential (primary) hypertension; I25.2 Old myocardial infarction; Z79.84 Long term (current) use of oral hypoglycemic drugs; Z79.899 Other long term (current) drug therapy; Z86.73 Personal history of transient ischemic attack (TIA), and cerebral infarction without residual deficits; W11.XXXA Fall on and from ladder, initial encounter; Y93.89 Activity, other specified
CPT/HCPCS: 36415; 80053; 85025; 85610; 85730; 72100; 72170; 93971; 72125; 70450; 99285; 96374; 96361 ×2; J2270

== ENCOUNTER → 2020-08-26 | Outpatient (CLI) | payer MEDICAID, MEDICARE ==
--- NOTE | 2020-08-28 09:54 | MR ---
EXAMINATION TYPE: MR cspine/lspine wo con DATE OF EXAM: 08/26/2020 COMPARISON: Plain film 08/21/2020, prior cervical MRI 10/07/2011, prior lumbar MRI 03/27/2018 HISTORY: Neck and LBP TECHNIQUE: Multiplanar, multisequence imaging of the lumbar spine is performed without IV contrast. FINDINGS: Cervical spine MRI: The fusion changes are again noted, susceptibility artifact is noted due to the h ardware seen at C6-7. Prior fusion changes are present at C4-C6. There is multilevel spondylosis. Los s of disc signal present at C2-3, C3-4, is endplate discogenic marrow signal change as on prior exam. C2-3: There is posterior extension of endplate disc complex causing anterior mass effect on the theca l sac. There is moderate spinal stenosis. Bilateral foraminal encroachment is present due to uncovert ebral joint hypertrophy and facet arthropathy, findings a spinal stenosis have progressed in the inte rval as has the foraminal encroachment. C3-4: There is posterior extension of endplate disc complex as well as posterior central disc herniat ion with possible fragmented material extending posterior to the C2 vertebral body possibly a subliga mentous fashion which is progressed somewhat in the interval, there is mass effect on the cervical co rd, mild to moderate spinal stenosis. Foraminal encroachment is present left greater than right due t o uncovertebral joint hypertrophy and facet arthropathy as on prior exam. C4-5: Disc space is obliterated. There is foraminal encroachment right greater than left as on prior. No significant stenosis. C5-6: Bilateral foraminal encroachment is present similar to prior exam. No spinal stenosis. Disc spa syl are obliterated. C6-7: Disc space is obliterated. No spinal stenosis. No significant foraminal encroachment. C7-T1: No significant spinal stenosis or foraminal encroachment, no disc herniation. Disc spaces are obliterated. IMPRESSION: There has been some progression in spinal stenosis, foraminal encroachment in the upper c ervical spine as compared to prior exam. Lumbar spine MRI: There is a spinal curvature present. Multilevel spondylosis is again seen. Loss of disc height signal present at intervertebral levels greatest L3-4. The conus is at T12-L1 shows an unremarkable appeara nce. No significant spinal stenosis with exception of L2-3. Endplate discogenic marrow signal changes are again seen. Lumbar vertebral bodies show preserved height and alignment. Cortical cyst is associ ated with the right kidney. L5-S1: There is facet arthropathy. Some encroachment on the lateral recesses suspected, extension dis c complex results in bilateral foraminal encroachment similar to prior exam. Posterior broad-based di sc bulge contacts anterior thecal sac. L4-5: Posterior disc bulge is normal. Facet arthropathy with hypertrophy causes posterior lateral mas s effect on the thecal sac, circumferential extension of endplate disc complex encroaches somewhat on the left possibly contributed by the spinal curvature L3-4: No significant foraminal encroachment. Minimal disc bulge is present. Intravenously in the thecal sac. Facet arthropathy with hypertrophy ligamentum flavum causes posterio r lateral mass effect on the thecal sac is a trefoil appearance of the thecal sac. L2-3: Circumferential extension of broad-based disc bulge causes mild foraminal encroachment. Anterio r mass effect on the thecal sac due to posterior broad-based disc bulge causes moderate spinal stenos is similar to prior. Facet arthropathy with hypertrophy ligamentum flavum is present causing mild pos terior lateral mass effect sac. Impression: Degenerative disc disease, foraminal encroachment similar to prior exam.
== END | disposition home or self-care (01) ==
LOC: RADMRIMAIN 20:53
PROVIDERS: ATTEND Orthopaedic Surgery
DX: M48.02 Spinal stenosis, cervical region (principal); M51.36 Other intervertebral disc degeneration, lumbar region
CPT/HCPCS: 72141; 72148

== ENCOUNTER → 2020-09-29 | Outpatient (CLI) | payer MEDICAID, MEDICARE ==
[2020-09-29 14:32] LABS: African American GFR (CKD) >90 (>60 ml/min/1.73 sqM); Blood Urea Nitrogen 8 mg/dL (9-20); Non-African American GFR(CKD) 84 (>60 ml/min/1.73 sqM)
--- NOTE | 2020-09-29 15:30 | CT ---
EXAMINATION TYPE: CT angio head neck DATE OF EXAM: 09/29/2020 HISTORY: Episodes of syncope prior to cervical fusion per patient. COMPARISON: CT DLP: 345.2 mGycm. Automated Exposure Control for Dose Reduction was Utilized. TECHNIQUE: CTA scan of the neck is performed with IV Contrast, patient injected with 65 mL of Isovue 370, axial images are obtained, coronal and sagittal reformatted images are reviewed. Three-D recons tructed images are created on an independent workstation and reviewed. FINDINGS: There is intracranial atherosclerotic disease. Vertebral basilar system is somewhat diminut gelacio in size but appears patent. No sizable aneurysm or vascular malformation. There is mild atherosclerotic changes involving the carotid bifurcations bilaterally with no signific ant hemodynamic stenosis. Hypertrophic and degenerative change of the cervical spine with postsurgical changes. Atherosclerotic change of the aorta. There is atherosclerotic change at the origin of the left subclavian artery. Em physematous changes involving the lungs are noted. Left vertebral artery is dominant. Right vertebral artery appears congenitally diminutive. IMPRESSION: 1. No sizable aneurysm or vascular malformation. 2. Mild atherosclerotic plaque involving the carotid bifurcations with no significant hemodynamic panda nosis. 3. Diminutive vertebrobasilar system sometimes be associated with vertebrobasilar insufficiency corre late clinically.
== END | disposition home or self-care (01) ==
LOC: RADCTMAIN 13:36
PROVIDERS: ATTEND Orthopaedic Surgery
DX: I65.23 Occlusion and stenosis of bilateral carotid arteries (principal); I77.89 Other specified disorders of arteries and arterioles
CPT/HCPCS: 82565; 84520; 70496; 70498; 36415; Q9967

== ENCOUNTER → 2020-11-11 | Outpatient (CLI) | payer MEDICAID, MEDICARE ==
[2020-11-11 11:42] LABS: Appearance,Urine Clear (Clear); Bilirubin,Urine Negative (Negative); Blood,Urine Moderate (Negative); Color,Urine Yellow; Glucose,Urine (UA) Negative (Negative); Ketones,Urine Negative (Negative); Leukocyte Esterase,Urine Negative (Negative); Nitrite,Urine Negative (Negative); PH, Urine 5.5 (5.0-8.0); Protein,Urine Negative (Negative); RBC,Urine 2 /hpf (0-5); Specific Gravity,Urine 1.009 (1.001-1.035); Urobilinogen,Urine <2.0 mg/dL (<2.0); WBC,Urine <1 /hpf (0-5)
[2020-11-11 19:15] LABS: HGB 13.7 g/dL (13.0-17.0); MCH 30.9 pg (27.0-32.0); MCHC 31.9 g/dL (32.0-37.0); MCV 97.1 fL (80.0-97.0); Mean Platelet Volume 8.7 fL (9.5-12.2); Platelet Count 287 X 10*3/uL (140-440); RBC 4.43 X 10*6/uL (4.40-5.60); WBC 8.01 X 10*3/uL (4.50-10.00)
[2020-11-11 21:04] LABS: African American GFR (CKD) 90.5 (60.0-200.0); Anion Gap 8.1 mmol/L (4.00-12.00); Calcium 9.6 mg/dL (8.7-10.3); Carbon Dioxide 24.9 mmol/L (21.6-31.8); Chol/HDL Ratio 4.13; Non-African American GFR(CKD) 78.1 (60.0-200.0); Potassium 4.2 mmol/L (3.5-5.5)
[2020-11-11 21:12] LABS: Prostate Specific Antigen 1.6 ng/mL (0.0-4.5)
== END | disposition home or self-care (01) ==
LOC: LABWHC1 10:44
PROVIDERS: ATTEND Family Medicine
DX: Z00.01 Encounter for general adult medical examination with abnormal findings (principal); I10 Essential (primary) hypertension; E78.5 Hyperlipidemia, unspecified
CPT/HCPCS: 36415; 80048; 80061; 81001; 82306; 84153; 84443; 84450; 84460; 85027

== ENCOUNTER → 2021-04-16 | Outpatient (CLI) | payer MEDICAID, MEDICARE ==
[2021-04-16 18:38] LABS: HCT 41.4 % (39.6-50.0); HGB 13.5 g/dL (13.0-17.0); MCH 31.4 pg (27.0-32.0); MCHC 32.6 g/dL (32.0-37.0); MCV 96.3 fL (80.0-97.0); Mean Platelet Volume 8.7 fL (9.5-12.2); Platelet Count 250 X 10*3/uL (140-440); RDW 12.8 % (11.5-14.5); WBC 7.58 X 10*3/uL (4.50-10.00)
[2021-04-17 02:30] LABS: African American GFR (CKD) 89.9 (60.0-200.0); Anion Gap 8.9 mmol/L (4.00-12.00); Calcium 9.4 mg/dL (8.7-10.3); Carbon Dioxide 23.1 mmol/L (21.6-31.8); Non-African American GFR(CKD) 77.5 (60.0-200.0); Potassium 4.4 mmol/L (3.5-5.5)
== END | disposition home or self-care (01) ==
LOC: LABWHC1 10:26
PROVIDERS: ATTEND Family Medicine
DX: I10 Essential (primary) hypertension (principal); E55.9 Vitamin D deficiency, unspecified
CPT/HCPCS: 36415; 80048; 82306; 83036; 84450; 84460; 85027

== ENCOUNTER → 2021-07-03 | Outpatient (CLI) | payer MEDICAID, MEDICARE ==
--- NOTE | 2021-07-03 23:03 | CT ---
EXAMINATION TYPE: CT chest wo con DATE OF EXAM: 07/03/2021 COMPARISON: CT chest 07/02/2020 HISTORY: lung nodule CT DLP: 340.7 mGycm. Automated Exposure Control for Dose Reduction was Utilized. TECHNIQUE: CT scan of the thorax is performed without IV contrast. 2-D sagittal and coronal reformat renetta images were obtained. FINDINGS: Cardiac size appears within normal limits. No pericardial effusion. Severe coronary artery calcificat ions and/or stents. Mild aortic annular calcifications. Scattered atherosclerotic calcifications of t he aortic arch without aneurysm. Main pulmonary artery is of normal caliber. No mediastinal or axilla ry lymphadenopathy. Limited evaluation for hilar lymph nodes without the administration of intravenou s contrast. Central airways are of normal course and caliber. No focal consolidations, pleural effusions, or pneu mothorax. No suspicious pulmonary nodules. Unchanged calcified granuloma in the right lower lobe. Pre viously described area of groundglass opacity within the left upper lobe has resolved. Limited views of the upper abdomen appear unremarkable. Moderate multilevel degenerative changes of the thoracic spine with bridging osteophytes anterolatera lly throughout consistent with diffuse idiopathic skeletal hyperostosis (DISH). Partially visualized anterior fusion hardware of the lower cervical spine. IMPRESSION: 1. Interval resolution of previously described area of groundglass in the left upper lobe. No focal c onsolidations, pleural effusions, or pneumothorax. 2. DISH of the thoracic spine.
== END | disposition home or self-care (01) ==
LOC: RADCTMAIN 07:59
PROVIDERS: ATTEND Internal Medicine Sleep Medicine
DX: M48.14 Ankylosing hyperostosis [Forestier], thoracic region (principal)
CPT/HCPCS: 71250

== ENCOUNTER 2022-08-20 06:07 | Inpatient (IN) | payer MEDICAID, MEDICARE ==
[2022-08-20] MEDS ORDERED: SODIUM CHLORIDE 0.9% 1,000 ML IV STA (06:08)
--- NOTE | 2022-08-20 06:15 | ED ---
Neuro HPI - General Stated Complaint: Stroke Time Seen by Provider: 08/20/22 06:08 Source: RN notes reviewed, old records reviewed Mode of arrival: EMS Limitations: no limitations - History of Present Illness Is the patient presenting with stroke symptoms?: No -: awoke with symptoms Initial Comments: This is a 66-year-old male to the emergency department for evaluation patient states her into bed last night and woke up this morning with symptoms of difficulty expressing himself some dizziness and weakness. Patient remains w ithout was having a stroke all EMS comes emergency department. Patient has history of CVA diabetes high blood pressure high cholesterol prior [place]. Location: speech History of same: Yes Place: home Severity: mild Quality: weak Improves With: none Worsens With: none On Anticoagulants: No Context: sudden onset Associated Symptoms: weakness Treatments Prior to Arrival: none - Related Data Home Medications: Home Medications Medication Instructions Recorded Confirmed Gabapentin 300 mg PO BID PRN 04/22/14 08/20/22 Hydrocodone/Acetaminophen 1 tab PO TID PRN 04/22/14 08/20/22 [Hydrocodone/Acetaminophen 10-325] cilostazoL [Pletal] 100 mg PO BID 04/22/14 08/20/22 Atorvastatin Calcium [Lipitor] 40 mg PO HS 05/10/20 08/20/22 Ibuprofen 800 mg PO Q12H PRN 05/10/20 08/20/22 Metoprolol Tartrate 25 mg PO BID 05/10/20 08/20/22 metFORMIN HCL [Glucophage] 500 mg PO BID 05/10/20 08/20/22 methocarbamoL [Robaxin] 500 mg PO DAILY PRN 05/10/20 08/20/22 Allergies/Adverse Reactions: Allergies Allergy/AdvReac Type Severity Reaction Status Date / Time No Known Allergies Allergy Verified 08/20/22 11:46 Review of Systems ROS Statement: Those systems with pertinent positive or pertinent negative responses have been documented in the HPI. ROS Other: All systems not noted in ROS Statement are negative. General Exam - General Exam Comments Initial Comments: No focal neurological deficits General appearance: alert, in no apparent distress Head exam: Present: atraumatic, normocephalic, normal inspection Eye exam: Present: normal appearance, PERRL, EOMI. Absent: scleral icterus, conjunctival injection, periorbital swelling ENT exam: Present: normal exam, mucous membranes moist Neck exam: Present: normal inspection. Absent: tenderness, meningismus, lymphadenopathy Respiratory exam: Present: normal lung sounds bilaterally. Absent: respiratory distress, wheezes, rales, rhonchi, stridor Cardiovascular Exam: Present: regular rate, normal rhythm, normal heart sounds. Absent: systolic murmur, diastolic murmur, rubs, gallop, clicks GI/Abdominal exam: Present: soft, normal bowel sounds. Absent: distended, tenderness, guarding, rebound, rigid Extremities exam: Present: normal inspection, full ROM, normal capillary refill. Absent: tenderness, pedal edema, joint swelling, calf tenderness Back exam: Present: normal inspection Neurological exam: Present: alert, oriented X3, CN II-XII intact Psychiatric exam: Present: normal affect, normal mood Skin exam: Present: warm, dry, intact, normal color. Absent: rash Stroke [facility] - Lab Data Result diagrams: 08/20/22 06:19 08/20/22 06:19 Lab Results 08/20/22 08/20/22 08/20/22 Range/Units 06:19 06:19 06:19 WBC 5.2 (3.8-10.6) k/uL RBC 4.25 L (4.30-5.90) m/uL Hgb 13.2 (13.0-17.5) gm/dL Hct 38.9 L (39.0-53.0) % MCV 91.4 (80.0-100.0) fL MCH 31.0 (25.0-35.0) pg MCHC 33.9 (31.0-37.0) g/dL RDW 13.0 (11.5-15.5) % Plt Count 206 (150-450) k/uL MPV 6.9 Neutrophils % 81 % Lymphocytes % 7 % Monocytes % 8 % Eosinophils % 3 % Basophils % 1 % Neutrophils # 4.2 (1.3-7.7) k/uL Lymphocytes # 0.3 L (1.0-4.8) k/uL Monocytes # 0.4 (0-1.0) k/uL Eosinophils # 0.1 (0-0.7) k/uL Basophils # 0.0 (0-0.2) k/uL PT 10.1 (9.0-12.0) sec INR 0.9 (<1.2) APTT 24.3 (22.0-30.0) sec Sodium 136 L (137-145) mmol/L Potassium 4.2 (3.5-5.1) mmol/L Chloride 104 (98-107) mmol/L Carbon Dioxide 26 (22-30) mmol/L Anion Gap 6 mmol/L BUN 13 (9-20) mg/dL Creatinine 1.04 (0.66-1.25) mg/dL Est GFR (CKD-EPI)AfAm 85 (>60 ml/min/1.73 sqM) Est GFR (CKD-EPI)NonAf 74 (>60 ml/min/1.73 sqM) Glucose 125 H (74-99) mg/dL Estimated Ave Glu mg/dL Hemoglobin A1c (0.0-6.0) % Calcium 8.7 (8.4-10.2) mg/dL Total Bilirubin 0.6 (0.2-1.3) mg/dL AST 21 (17-59) U/L ALT 15 (4-49) U/L Alkaline Phosphatase 67 (38-126) U/L Troponin I (0.000-0.034) ng/mL Total Protein 6.7 (6.3-8.2) g/dL Albumin 4.2 (3.5-5.0) g/dL 08/20/22 08/20/22 Range/Units 06:19 06:19 WBC (3.8-10.6) k/uL RBC (4.30-5.90) m/uL Hgb (13.0-17.5) gm/dL Hct (39.0-53.0) % MCV (80.0-100.0) fL MCH (25.0-35.0) pg MCHC (31.0-37.0) g/dL RDW (11.5-15.5) % Plt Count (150-450) k/uL MPV Neutrophils % % Lymphocytes % % Monocytes % % Eosinophils % % Basophils % % Neutrophils # (1.3-7.7) k/uL Lymphocytes # (1.0-4.8) k/uL Monocytes # (0-1.0) k/uL Eosinophils # (0-0.7) k/uL Basophils # (0-0.2) k/uL PT (9.0-12.0) sec INR (<1.2) APTT (22.0-30.0) sec Sodium (137-145) mmol/L Potassium (3.5-5.1) mmol/L Chloride (98-107) mmol/L Carbon Dioxide (22-30) mmol/L Anion Gap mmol/L BUN (9-20) mg/dL Creatinine (0.66-1.25) mg/dL Est GFR (CKD-EPI)AfAm (>60 ml/min/1.73 sqM) Est GFR (CKD-EPI)NonAf (>60 ml/min/1.73 sqM) Glucose (74-99) mg/dL Estimated Ave Glu mg/dL 134 Hemoglobin A1c 6.3 H (0.0-6.0) % Calcium (8.4-10.2) mg/dL Total Bilirubin (0.2-1.3) mg/dL AST (17-59) U/L ALT (4-49) U/L Alkaline Phosphatase (38-126) U/L Troponin I <0.012 (0.000-0.034) ng/mL Total Protein (6.3-8.2) g/dL Albumin (3.5-5.0) g/dL - NIH Stroke Scale 1a. Level of Consciousness: (0) alert 1b. LOC Questions: (0) answers correctly 1c. LOC Commands: (0) performs tasks correctly 2. Best Gaze: (0) normal 3. Visual: (0) no visual loss 4. Facial Palsy: (0) normal symmetrical movement 5a. Motor Arm Left: (0) no drift 5b. Motor Arm Right: (0) no drift 6a. Motor Leg Left: (0) no drift 6b. Motor Leg Right: (0) no drift 7. Limb Ataxia: (0) absent 8. Sensory: (0) normal 9. Best Language: (0) no aphasia 10. Dysarthria: (0) normal 11. Extinction/Inattention: (0) no abnormality - Thrombolytic Inclusion/Exclusion Thrombolytic Exclusion Criteria: Onset of Symptoms Unknown (Symptoms resolved on arrival to ER), Symptom Onset > 4.5 Hours (Wake up stroke) - Medical Decision Making 58 male DF for evaluation patient Dese for evaluation of CVA symptoms that are improving on arrival to the ER. He still does have some expressive aphasia although he is able to name things as appropriate. Patient be admitted for CVA, TIA with neurology consult - Radiology Data Radiology results: report reviewed (CT brain CT angios had neck negative for acute disease), image reviewed - EKG Data -: EKG Interpreted by Me (EKG shows sinus tachycardia 116. 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 Last Myocardial Infarction Date:: 2000 History of Any Multi-Drug Resistant Organisms: None Reported Past Surgical History: Tonsillectomy Additional Past Surgical History / Comment(s): cervical fusion x2 in 2005, bypass right leg artery Past Anesthesia/Blood Transfusion Reactions: No Reported Reaction Past Psychological History: No Psychological Hx Reported Smoking Status: Current every day smoker Past Alcohol Use History: None Reported Past Drug Use History: None Reported Course Vital Signs 08/20/22 08/20/22 08/20/22 06:37 08:00 08:30 Temperature 98.5 F Pulse Rate 105 H 101 H 101 H Respiratory 15 22 20 Rate Blood Pressure 121/70 118/66 120/66 O2 Sat by Pulse 97 94 L 95 Oximetry 08/20/22 08/20/22 08/20/22 09:00 10:00 11:00 Temperature Pulse Rate 99 92 81 Respiratory 18 20 19 Rate Blood Pressure 120/66 103/62 93/64 O2 Sat by Pulse 95 96 94 L Oximetry 08/20/22 08/20/22 12:00 13:56 Temperature Pulse Rate 71 85 Respiratory 18 18 Rate Blood Pressure 120/73 105/62 O2 Sat by Pulse 95 95 Oximetry Critical Care Time Critical Care Time: Yes Total Critical Care Time: 31 Disposition Clinical Impression: Transient cerebral ischemia, Cerebrovascular accident (CVA) Disposition: ADMITTED IP TO THIS HOSP Condition: Fair Is patient prescribed a controlled substance at d/c from ED?: No Time of Disposition: 07:00
[2022-08-20 06:34] LABS: Basophils % (A) 1 %; Eosinophils # (A) 0.1 k/uL (0-0.7); Eosinophils % (A) 3 %; HCT 38.9 % (39.0-53.0); HGB 13.2 gm/dL (13.0-17.5); Lymphocytes # (A) 0.3 k/uL (1.0-4.8); Lymphocytes % (A) 7 %; MCHC 33.9 g/dL (31.0-37.0); MCV 91.4 fL (80.0-100.0); Mean Platelet Volume 6.9; Monocytes # (A) 0.4 k/uL (0-1.0); Monocytes % (A) 8 %; Neutrophils # (A) 4.2 k/uL (1.3-7.7); Neutrophils % (A) 81 %; Platelet Count 206 k/uL (150-450); RBC 4.25 m/uL (4.30-5.90); WBC 5.2 k/uL (3.8-10.6)
--- NOTE | 2022-08-20 06:39 | CT ---
EXAMINATION TYPE: CT brain wo con for TPA DATE OF EXAM: 08/20/2022 COMPARISON: 07/27/2020 HISTORY: neuro deficit CT DLP: 1162.6 mGycm Automated exposure control for dose reduction was used. Images obtained of the brain with no contrast. Ventricles have normal size. There is no mass effect or midline shift. No sign of intracranial hemorr simon. The calvarium IMPRESSION: Negative unenhanced head CT scan. No adverse change. Is intact.
--- NOTE | 2022-08-20 06:41 | XR ---
EXAMINATION TYPE: XR chest 1V DATE OF EXAM: 08/20/2022 COMPARISON: 05/19/2020 HISTORY: Weakness TECHNIQUE: FINDINGS: There is no heart failure nor confluent pneumonic infiltrate. Costophrenic angles are clear . There are chest leads. The bony thorax is intact. The pulmonary vascularity is normal. IMPRESSION: No active cardiopulmonary disease. Normal heart. No change.
[2022-08-20 06:45] LABS: INR 0.9 (<1.2); Partial Thromboplastin Time 24.3 sec (22.0-30.0); Prothrombin Time 10.1 sec (9.0-12.0)
[2022-08-20 06:48] LABS: Albumin 4.2 g/dL (3.5-5.0); Calcium 8.7 mg/dL (8.4-10.2); Total Bilirubin 0.6 mg/dL (0.2-1.3); Total Protein 6.7 g/dL (6.3-8.2)
[2022-08-20 06:53] LABS: Potassium 4.2 mmol/L (3.5-5.1)
[2022-08-20] MEDS ORDERED: ASPIRIN 325 MG TAB PO STA (06:56)
--- NOTE | 2022-08-20 07:07 | CT ---
EXAMINATION TYPE: CT angio head neck DATE OF EXAM: 08/20/2022 COMPARISON: 09/29/2020 HISTORY: Neuro deficit CT DLP: 511 mGycm Automated exposure control for dose reduction was used. CONTRAST: Performed without and with IV Contrast, patient injected with 65 mL of Isovue 370. There are 3-D post processed images. Images obtained from the aortic arch to the vertex of the brain with the IV contrast. There are Three -D postprocessed images. There is arterial flow in both subclavian arteries. There is normal branching pattern of the great ve ssels on the aortic arch. There is arterial flow in the common internal and external carotid arteries bilaterally. There is bilateral plaque formation at the carotid bifurcations. There is 25% stenosis at the origins of both internal carotid arteries. There is arterial flow in both vertebral arteries. The right vertebral artery is small. There is no evidence of carotid or vertebral artery aneurysm or dissection. The basilar artery fills mostly from the left side. Stenosis of the proximal right verteb ral artery is possible. There is arterial flow in the anterior middle and posterior cerebral arteries. No mass effect. No love dence of intracranial aneurysm or neovascularity. No evidence of intracranial hemodynamic arterial st enosis. There is normal enhancement of the venous sinuses. IMPRESSION: Mild plaque formation at the carotid artery bifurcations. No evidence of hemodynamic arterial stenosi s in the head.. Small right vertebral artery. No change compared to old exam.
[2022-08-20] MEDS: ATORVASTATIN 40 MG TAB PO SCH (07:31)
[2022-08-20] MEDS ORDERED: methocarbamoL 500 MG TAB PO PRN (11:20)
[2022-08-20] MEDS ORDERED: DEXTROSE 50% SYRINGE 50 ML IVP PRN ×2 (11:22)
[2022-08-20 12:53] LABS: Glucose,Whole Blood 106 mg/dL (70-110)
[2022-08-20] MEDS: INSULIN ASPART (NovoLOG) 100 UNIT/ML VIAL SQ SCH ×2 (12:55→18:45)
[2022-08-20] MEDS ORDERED: RX INFO: IV CONTRAST WAS GIVEN 1 EACH MISC MISCELLANE PRN (13:57)
[2022-08-20] MEDS: DIPYRIDAMOLE-ASPIRIN 200-25 MG 1 EACH CPMP.12HR PO SCH (13:58)
[2022-08-20] MEDS: cilostazoL 100 MG TAB PO SCH (13:58)
[2022-08-20] MEDS ORDERED: LACTULOSE 20 GM/30 ML CUP PO PRN (13:59)
[2022-08-20] MEDS ORDERED: NALOXONE 0.4 MG/ML 1 ML VIAL IV PRN (13:59)
[2022-08-20] MEDS ORDERED: ACETAMINOPHEN TAB 325 MG TAB PO PRN (13:59)
[2022-08-20] MEDS ORDERED: TEMAZEPAM 15 MG CAP PO PRN (13:59)
[2022-08-20] MEDS ORDERED: CALCIUM CARBONATE 500 MG CHEWABLE PO PRN (13:59)
[2022-08-20] MEDS ORDERED: LORazepam 0.5 MG TAB PO PRN (13:59)
[2022-08-20] MEDS ORDERED: ONDANSETRON 4 MG/2 ML VIAL IVP PRN (13:59)
--- NOTE | 2022-08-20 14:55 | XR ---
EXAMINATION TYPE: XR shoulder complete LT DATE OF EXAM: 08/20/2022 COMPARISON: NONE HISTORY: Fall. Shoulder pain TECHNIQUE: 3 views FINDINGS: There is spurring at the glenohumeral joint. There is small calcification at the greater tu berosity humerus. No fracture. AC joint is intact. 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 No fracture seen. Mild calcific tendinitis.
[2022-08-20] MEDS: HYDROcodone/APAP 10-325MG 1 EACH TAB PO PRN (15:32)
[2022-08-20] MEDS: GABAPENTIN 300 MG CAP PO PRN ×2 (15:32→21:27)
[2022-08-20] MEDS: NICOTINE 21MG/24HR PATCH TRANSDERM SCH (15:33)
--- NOTE | 2022-08-20 15:38 | P.HPIM ---
History of Present Illness H&P Date: 08/20/22 Chief Complaint: Altered consciousness This is a pleasant 66-year-old patient who follows with Dr. Trevino. Patient is accompanied by his and daughter the bedside. Chronic stable medical conditions include diabetes, hypertension, hyperlipidemia, PAD, CAD the prior [place], 2 previous strokes, which patient recovered, STROKE to the left eye, decreased hearing. Patient is a smoker. Patient went to bed at 11 PM last night. Relevant for the patient's woke up and found the patient wanted to go to the restroom. Was not really able to do so felt somewhat confused. Not able to follow commands. Liquid answer questions. She had come to the bathroom. Brought him back to the bed and then when 911 was called. Sometime this afternoon patient started doing better. No focal weakness in the arms or legs. Per the family patient is getting a sense of humor back which is evident while taking the history from him. No change in vision. No change in swallowing. No headache. Normally patient is active and able to get about. About 2 weeks ago patient fell hurting his left shoulder. Complaining of local pain. Review of systems: GEN.: None EYES: None HEENT: Decreased hearing NECK: None RESPIRATORY: Short of breath and wheezing especially this morning CARDIOVASCULAR: None GASTROINTESTINAL: None GENITOURINARY: None MUSCULOSKELETAL: None LYMPHATICS: None HEMATOLOGICAL: None PSYCHIATRY: None NEUROLOGICAL: As above Past medical history to include: COPD, stroke, diabetes, hyperlipidemia, hypertension, CAD with [place], HIS total left eye, Social history: Alcohol rarely. Retired tractor trailer truck driver. Lives with his . Smokes three- quarter pack a day for close to 52 years. Family history: Reviewed, noncontributory to presentation Physical examination: VITAL SIGNS: 98.5, 105, 15, 121/70, 97% GENERAL: BMI 25.1, reclining bed awake comfortable. EYES: Pupils equal. Conjunctiva normal. HEENT: External appearance of nose and ears normal, oral cavity grossly normal decreased hearing. NECK: JVD not raised; masses not palpable. HEART: First and second heart sounds are normal; no edema. LUNGS: Respiratory rate increased, decreased breath sounds prolonged expiration. Wheezing. ABDOMEN: Soft, nontender, liver spleen not palpable, no masses palpable. PSYCH: Alert and oriented x3; mood and affect normal. MUSCULOSKELETAL:No Clubbing/cyanosis;muscles-grossly intact. 1 NEUROLOGICAL: Cranial nerves grossly intact; no facial asymmetry, power and sensation grossly intact. LYMPHATICS: No lymph nodes palpable in the axilla and neck INVESTIGATIONS, reviewed in the clinical context: White count 5.2 hemoglobin 13.2 platelets 206 potassium 4.2 creatinine 1.04 COVID 19 PCR: Not detected EKG tracing personally reviewed by me-normal sinus rhythm, sinus tachycardia, nonspecific changes Chest x-ray film personally reviewed by me-hyperinflation, prominent pulmonary artery CT brain: Negative CT angina had a neck: Nonspecific Left shoulder x-ray: Showed a joint OA. No fracture. Assessment and plan: -Patient not able to follow commands, but no other focal findings started about 4:00 this morning much better about 2:00 this afternoon. Patient had prior history of 2 strokes. Likely TIA. Computed tomography scan unremarkable. Neuro checks. Consult neurology. Patient is already on antiplatelet agents. Advised against smoking -Chronic nicotine dependence, cigarette smoker Nicotine patch. -Acute COPD exacerbation in a current smoker DuoNeb, nebulized Pulmicort. -Hyperlipidemia Lipitor -Diabetes mellitus type 2 on oral hypoglycemic Metformin. Follow Accu-Cheks -Essential hypertension Metoprolol -PAD, with previous bypass right lower extremity Pletal, Aggrenox -Left shoulder blunt injury secondary to fall. No fractures from x-ray. Denisse pad. Consult Dr. Diallo. Resume medications. Subcu Lovenox. DuoNeb. Tablets Pulmicort. Nicotine patch. Consult neurology. Care was discussed with the patient and family at the bedside. Questions answered. Smoke cessation counseling: This was done with the patient. Nicotine patch is being given. 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 Last Myocardial Infarction Date:: 2000 History of Any Multi-Drug Resistant Organisms: None Reported Past Surgical History: Tonsillectomy Additional Past Surgical History / Comment(s): cervical fusion x2 in 2006, bypass right leg artery Past Anesthesia/Blood Transfusion Reactions: No Reported Reaction Past Psychological History: No Psychological Hx Reported Smoking Status: Current every day smoker Past Alcohol Use History: None Reported Past Drug Use History: None Reported Medications and Allergies Home Medications Medication Instructions Recorded Confirmed Type Gabapentin 300 mg PO BID PRN 04/22/14 08/20/22 History Hydrocodone/Acetaminophen 1 tab PO TID PRN 04/22/14 08/20/22 History [Hydrocodone/Acetaminophen 10-325] cilostazoL [Pletal] 100 mg PO BID 04/22/14 08/20/22 History Atorvastatin Calcium [Lipitor] 40 mg PO HS 05/10/20 08/20/22 History Ibuprofen 800 mg PO Q12H PRN 05/10/20 08/20/22 History Metoprolol Tartrate 25 mg PO BID 05/10/20 08/20/22 History metFORMIN HCL [Glucophage] 500 mg PO BID 05/10/20 08/20/22 History methocarbamoL [Robaxin] 500 mg PO DAILY PRN 05/10/20 08/20/22 History Allergies Allergy/AdvReac Type Severity Reaction Status Date / Time No Known Allergies Allergy Verified 08/20/22 11:46 Physical Exam Vitals: Vital Signs Temp Pulse Resp BP Pulse Ox 08/20/22 10:00 92 20 103/62 96 08/20/22 09:00 99 18 120/66 95 08/20/22 08:30 101 H 20 120/66 95 08/20/22 08:00 101 H 22 118/66 94 L 08/20/22 06:37 98.5 F 105 H 15 121/70 97 Intake and Output 08/19/22 08/20/22 08/20/22 22:59 06:59 14:59 Other: Weight 83.915 kg Results CBC & Chem 7: 08/20/22 06:19 08/20/22 06:19 Labs: Abnormal Lab Results - Last 24 Hours (Table) 08/20/22 08/20/22 Range/Units 06:19 06:19 RBC 4.25 L (4.30-5.90) m/uL Hct 38.9 L (39.0-53.0) % Lymphocytes # 0.3 L (1.0-4.8) k/uL Sodium 136 L (137-145) mmol/L Glucose 125 H (74-99) mg/dL
[2022-08-20] MEDS: BUDESONIDE 1 MG/2 ML NEBU INHALATION SCH ×2 (16:03→20:27)
[2022-08-20] MEDS: IPRATROPIUM-ALBUTEROL 3 ML NEB INHALATION SCH ×3 (16:04→20:27)
[2022-08-20] MEDS: IOPAMIDOL CONTRAST (ORAL USE) VIAL PO PRN ×2 (16:33→17:27)
[2022-08-20 17:06] LABS: Glucose,Whole Blood 117 mg/dL (70-110)
--- NOTE | 2022-08-20 19:00 | CT ---
EXAMINATION TYPE: CT ChestAbdPelvis w con DATE OF EXAM: 08/20/2022 COMPARISON: CT chest 07/03/2021 HISTORY: Weight loss. CT DLP: 1001.1 mGycm Automated exposure control for dose reduction was used. CONTRAST: Performed with IV Contrast, patient injected with 100ml mL of Isovue 370. The lungs are clear of consolidation. There is some mild atelectasis at the posterior lung bases. Hea rt size is normal. There are no hilar masses. No mediastinal adenopathy. Thoracic aorta shows mild at heromatous changes. No aneurysm. Liver spleen and stomach pancreas and gallbladder appear intact. The bowel is not dilated. There is no adrenal mass. Kidneys show satisfactory contrast opacification. No hydronephrosis. Ureter s are not dilated. There are 2 cm right renal parapelvic cysts. No retroperitoneal adenopathy. Abdomi nal aorta is atheromatous. The bladder distends smoothly. Prostate is enlarged and measures 5.5 cm. N o inguinal hernia there are clips in the right inguinal region. No free fluid in the pelvis. No pelvi c mass. Appendix is medial and appears normal. There is no mesenteric edema. No ascites or free air. No sign of a bowel obstruction. There is mild t horacolumbar dextroscoliosis. The ribs are intact. The thoracic and lumbar vertebra contact. No compression fracture. There is hypertrophic degenerative spurring throughout the thoracic and lumbar spine. The bony pelvis is intact. Hip joints are intact. IMPRESSION: There is some patchy atelectasis at the lung bases which is new compared to old exam. No acute abnorm ality within the abdomen and pelvis.
[2022-08-20 20:51] LABS: Glucose,Whole Blood 166 mg/dL (70-110)
[2022-08-20] MEDS: HYDROcodone/APAP 5-325MG 1 EACH TAB PO PRN (21:27)
[2022-08-20] MEDS: metFORMIN 500 MG TAB PO SCH (21:28)
[2022-08-20] MEDS: CHOLECALCIFEROL 25 MCG (1000 IU) TABLET PO SCH (21:28)
--- NOTE | 2022-08-20 23:52 | P.CNNES ---
History of Present Illness Consult date: 08/20/22 Requesting physician: Artis Saenz Reason for Consult: CVA, TIA History of Present Illness: Patient is a 66-year-old left-handed male, who went to sleep at 11 PM last night in usual state of health. At 4:20 AM he woke up from sleep to pass urine. He woke up at 4:20 AM to go pee. When he got up, his helped him to get on the side of the bed and she felt he could not move. He was stumbling, and she help ed him and he struggled to go to the bathroom and on the way he did leak some urine. After he was done, his helped him and he struggled to locate the bed on the way back to his bed. He got into the bed somehow. She notices that he was not following directions, therefore she called EMS. As per EMS flow sheet, when they arrived, patient was alert and oriented 4, able to answer all questions however expressive aphasia was present. Patient states it is difficult to say what he is thinking. Speech was mildly slurred, however it isn't known if this is normal for patient. No other symptoms. Assessment was positive for mild left-sided weakness, loss of balance and expressive aphasia. Patient's blood glucose was 1 54 mg/dL. Blood pressure was 146/64, pulse rate 111, respirations 16, saturation 97%. Patient has history of diabetes for last 2 years. He has history of CAD, history of [place], CABG. He had 2 strokes in the past. Patient's family states that after his first stroke which was 15 years ago, he couldn't walk and went to rehab. He regained all his strength. The second stroke that occurred 8-9 years ago, affected his 75% vision of his left eye. He has history of cervical spinal surgery, with cage in the neck and cervical fusion 2. Also has chronic low back pain. Patient has history of smoking 3-4 pack per day since age 14. Still smokes. No alcohol. No marijuana. Patient also has history of graft in the right leg for peripheral arterial disease. Blood test but WBC 5.2 hemoglobin 13.2, platelet 206. PT/PTT is normal, sodium 136 potassium 4.2, normal renal functions. Hepatic panel is normal, troponin negative. Coronal virus PCR negative. CT head showed no acute process. I personally reviewed CT head, agree with the findings. CTA showed no significant stenosis. EKG shows sinus tachycardia. Patient was not a candidate for TPA, as he came outside the window for TPA. Patient used to be on Aggrenox 1 tablet twice a day for his stroke. However because of the expense issues, patient stopped taking Aggrenox about 6-12 months ago. Patient states that he was told by pharmacist that Pletal would do the same job. Patient otherwise not on any antiplatelet medication. He does take Lipitor 40 mg but no antiplatelet medications except Pletal. Patient states that he is tripped over a cord about couple weeks ago, and felt on the left shoulder hitting on the railing. Review of Systems Constitutional: Denies chills, Denies fever Eyes: left loss of peripheral vision, denies blurred vision, denies pain Ears: bilateral: decreased hearing Ears, nose, mouth and throat: Denies headache, Denies sore throat Cardiovascular: Denies chest pain, Denies shortness of breath Respiratory: Denies cough Gastrointestinal: Denies abdominal pain, Denies diarrhea, Denies nausea, Denies vomiting Musculoskeletal: Reports low back pain, Reports myalgias Musculoskeletal: left: shoulder pain Integumentary: Denies pruritus, Denies rash Neurological: Reports as per HPI Psychiatric: Denies anxiety, Denies depression Endocrine: Denies fatigue, Denies weight change Past Medical History Past Medical History: COPD, CVA/TIA, Diabetes Mellitus, Hyperlipidemia, Hypertension, Myocardial Infarction ([place]) Additional Past Medical History / Comment(s): 2 strokes, residual effects recovered, most recent over 5 years ago; 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 Last Myocardial Infarction Date:: 2000 History of Any Multi-Drug Resistant Organisms: None Reported Past Surgical History: Tonsillectomy Additional Past Surgical History / Comment(s): cervical fusion x2 in 2005, bypass right leg artery Past Anesthesia/Blood Transfusion Reactions: No Reported Reaction Past Psychological History: No Psychological Hx Reported Smoking Status: Current every day smoker Past Alcohol Use History: None Reported Past Drug Use History: None Reported Medications and Allergies Home Medications Medication Instructions Recorded Confirmed Type Gabapentin 300 mg PO BID PRN 04/22/14 08/20/22 History Hydrocodone/Acetaminophen 1 tab PO TID PRN 04/22/14 08/20/22 History [Hydrocodone/Acetaminophen 10-325] cilostazoL [Pletal] 100 mg PO BID 04/22/14 08/20/22 History Atorvastatin Calcium [Lipitor] 40 mg PO HS 05/10/20 08/20/22 History Ibuprofen 800 mg PO Q12H PRN 05/10/20 08/20/22 History Metoprolol Tartrate 25 mg PO BID 05/10/20 08/20/22 History metFORMIN HCL [Glucophage] 500 mg PO BID 05/10/20 08/20/22 History methocarbamoL [Robaxin] 500 mg PO DAILY PRN 05/10/20 08/20/22 History Allergies Allergy/AdvReac Type Severity Reaction Status Date / Time No Known Allergies Allergy Verified 08/20/22 11:46 Physical Examination - Vital Signs Vital Signs: Vital Signs Temp Pulse Resp BP Pulse Ox 08/20/22 12:00 71 18 120/73 95 08/20/22 11:00 81 19 93/64 94 L 08/20/22 10:00 92 20 103/62 96 08/20/22 09:00 99 18 120/66 95 08/20/22 08:30 101 H 20 120/66 95 08/20/22 08:00 101 H 22 118/66 94 L 08/20/22 06:37 98.5 F 105 H 15 121/70 97 Intake and Output 08/19/22 08/20/22 08/20/22 22:59 06:59 14:59 Other: Weight 83.915 kg Patient is an elderly male, very pleasant in no acute distress. Patient is alert awake oriented to time place and person. Speech and language functions are normal. Patient can name and repeat very well. No aphasia or dysarthria. Attention, concentration and fund of knowledge is adequate. Detailed testing deferred. On cranial nerve examination, pupils are equal, round and reacting to light, visual sultana are full on confrontation, with no neglect on double simultaneous depression. Individual testing of the eyes revealed patient has some peripheral vision loss monocular with the left eye. Extraocular muscles are intact with no nystagmus. Face is symmetric, tongue protrudes to the midline. Palatal elevation and sensation normal, hearing is moderately decreased and shoulder shrug normal, facial sensation normal. On muscle strength testing, there is no pronator drift and the strength is normal in arms and legs distally and proximally. Left shoulder hurts from recent fall. Deep tendon reflexes are (right/left) biceps 2+/1+, brachioradialis 2+/1+, knees 2/2, ankles 1/1 and plantars are downgoing bilaterally. Sensory to touch is equal with no neglect on double simultaneous stimulation. Cerebellar function showed no ataxia for [id number] testing. No dysdiadochokinesia. No ataxia for [id number] testing on either side. Tone and bulk of muscles normal. Gait deferred.. On general examination, there is no carotid bruit or murmur, S1-S2 audible. Chest is clear on consultation. Abdomen is soft nontender. No organomegaly, bowel sounds present. No edema. Results - Laboratory Findings CBC and BMP: 08/20/22 06:19 08/20/22 06:19 Abnormal Lab Findings: Abnormal Labs 08/20/22 08/20/22 06:19 06:19 RBC 4.25 L Hct 38.9 L Lymphocytes # 0.3 L Sodium 136 L Glucose 125 H Assessment and Plan Assessment: * Probable TIA/stroke manifesting with transient mental confusion, gait disturbance, some expressive speech difficulty. All symptoms have resolved. Current NIH stroke scale is 0. * Hypertension * Diabetes * Hyperlipidemia * History of CVA 2 * Peripheral arterial disease * Coronary artery disease * History of cervical fusion 2 * Tobacco use Plan: * Patient has multiple stroke risk factors, currently not taking any antiplatelet medication. He used to be on Aggrenox, which was discontinued about 6-12 months ago because of expense issues. Patient wants to resume Aggrenox 1 tablet twice a day. Patient has received loading dose of aspirin 324 mg in the ED. No need to continue aspirin along with Aggrenox, therefore we will discontinue aspirin. * 2-D echo with bubble study to rule out PFO * CTA head and neck showed: Mild plaque formation at the carotid artery bifurcation. No significant stenosis. Small right vertebral artery. * Fasting a.m. lipid panel * Hemoglobin A1c 6.3 * Permissive hypertension for next 24-48 hours * Close neuro checks as per protocol. * Telemetry monitoring rule out any arrhythmia * DVT prophylaxis: Lovenox 40 mg subcu daily. * Neurology will continue ot follow. Thank you for the consult.
[2022-08-21] MEDS: cilostazoL 100 MG TAB PO SCH ×3 (00:34→21:00)
[2022-08-21] MEDS: DIPYRIDAMOLE-ASPIRIN 200-25 MG 1 EACH CPMP.12HR PO SCH ×3 (00:34→21:00)
--- NOTE | 2022-08-21 01:37 | CONS ---
CONSULTATION CHIEF COMPLAINT: CVA, rule out thromboembolic phenomenon. HISTORY OF PRESENT ILLNESS: This is a 66-year-old gentleman with history of COPD, type 2 diabetes, hypertension, dyslipidemia, prior CVA, PAD status post bypass surgery, and cervical spine fusion surgery, who presented to hospital with weakness involving left upper extremity. He also was confused and did not know what was going on and came to the hospital. Neurologist apparently wanted a ANTONIA for which Cardiology had been consulted. At the time of my evaluation, he appears comfortable at rest, sleeping soundly, and denies any new symptoms. PAST MEDICAL HISTORY: Significant for peripheral arterial disease, diabetes, dyslipidemia. MEDICATIONS: Include, 1. Robaxin. 2. Metoprolol. 3. Glucophage. 4. Pletal. 5. Neurontin. 6. Lipitor. ALLERGIES: No known drug allergies. FAMILY HISTORY: Negative for premature coronary artery disease. SOCIAL HISTORY: Significant for smoking. There is no history of EtOH abuse or drug abuse. REVIEW OF SYSTEMS: HEENT: Unremarkable. CARDIAC: As described above. RESPIRATORY: As described above. GI: Negative. GENITOURINARY: Negative. ALLERGY/IMMUNOLOGY: SKIN: Negative. MUSCULOSKELETAL: Significant for arthritis. PSYCHOSOCIAL: Negative. DERM: Negative. CONSTITUTIONAL: Negative. ONCOLOGICAL: Negative. REGISTERED MAIL CLERK: Negative. Rest of the system review is not relevant. PHYSICAL EXAMINATION: GENERAL: Comfortable at rest. VITAL SIGNS: Stable. NECK: There is jugular venous distention. Carotid upstroke is normal. There is no bruit. CHEST: Reveals good air entry bilaterally. HEART: Reveals first and second heart sounds. No gallop. ABDOMEN: Soft. EXTREMITIES: Did not reveal any edema. Peripheral pulses are palpable. ASSESSMENT AND PLAN: 1. Cerebrovascular accident. Rule out cardiac source of thromboembolic phenomenon. 2. Peripheral arterial disease. 3. Coronary artery disease. 4. Dyslipidemia. 5. Diabetes. PLAN: Patient will continue current medications. I do not have a neurology consultation on the patient yet and will talk to them and if they need will perform this. MMODL / IJN: [id number] /
[2022-08-21] MEDS: INSULIN ASPART (NovoLOG) 100 UNIT/ML VIAL SQ SCH ×3 (06:30→16:39)
[2022-08-21 06:31] LABS: Glucose,Whole Blood 134 mg/dL (70-110)
[2022-08-21] MEDS: BUDESONIDE 1 MG/2 ML NEBU INHALATION SCH ×2 (08:06→19:57)
[2022-08-21] MEDS: IPRATROPIUM-ALBUTEROL 3 ML NEB INHALATION SCH ×3 (08:06→19:57)
[2022-08-21] MEDS ORDERED: ASPIRIN 325 MG TAB PO SCH (09:00)
--- NOTE | 2022-08-21 09:13 | P.CNOR ---
History of Present Illness - [facility] Consult date: 08/21/22 History of present illness: The patient is a very pleasant 66-year-old male multiple medical problems was admitted to internal medicine. Orthopedics has been consulted for left shoulder pain following a fall. According to the patient and his family was at bedside he sustained a recent fall which resulted in acute onset shoulder pain. He denies any pre-existing shoulder pain but does have a long history of problems with his cervical spine. He has undergone several surgical procedures at [facility]. He is also seen Dr. [facility] for this. At the time of my evaluation he is having resolving shoulder pain but still does have some discomfort. He is able to move his arm without too much difficulty. He denies any radiating numbness or pain into his elbow or forearm. He has no other complaints. 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 Last Myocardial Infarction Date:: 2000 History of Any Multi-Drug Resistant Organisms: None Reported Past Surgical History: Tonsillectomy Additional Past Surgical History / Comment(s): cervical fusion x2 in 2005, bypass right leg artery Past Anesthesia/Blood Transfusion Reactions: No Reported Reaction Past Psychological History: No Psychological Hx Reported Smoking Status: Current every day smoker Past Alcohol Use History: None Reported Past Drug Use History: None Reported Medications and Allergies Home Medications Medication Instructions Recorded Confirmed Type Gabapentin 300 mg PO BID PRN 04/22/14 08/20/22 History Hydrocodone/Acetaminophen 1 tab PO TID PRN 04/22/14 08/20/22 History [Hydrocodone/Acetaminophen 10-325] cilostazoL [Pletal] 100 mg PO BID 04/22/14 08/20/22 History Atorvastatin Calcium [Lipitor] 40 mg PO HS 05/10/20 08/20/22 History Ibuprofen 800 mg PO Q12H PRN 05/10/20 08/20/22 History Metoprolol Tartrate 25 mg PO BID 05/10/20 08/20/22 History metFORMIN HCL [Glucophage] 500 mg PO BID 05/10/20 08/20/22 History methocarbamoL [Robaxin] 500 mg PO DAILY PRN 05/10/20 08/20/22 History Allergies Allergy/AdvReac Type Severity Reaction Status Date / Time No Known Allergies Allergy Verified 08/20/22 11:46 Physical Examination He is resting comfortably in his bed. He is alert and able to answer questions. He demonstrates nonlabored breathing with symmetric chest expansion. A focused examination the left upper extremity was conducted. On inspection there is no swelling, overlying ecchymosis or discoloration of the skin. He has relatively full passive and active range of motion. He has diffuse tenderness over the anterior aspect of the shoulder. He has some pain and mild weakness with empty can testing. There is no tenderness in the elbow, forearm or wrist. Motor and sensory function are intact. Results X-rays of the left shoulder show no acute fractures and diffuse degenerative changes in the shoulder and AC joint - Labs Labs: Abnormal Lab Results - Last 24 Hours (Table) 08/20/22 08/20/22 08/20/22 Range/Units 06:19 17:03 20:50 POC Glucose (mg/dL) 117 H 166 H (70-110) mg/dL Hemoglobin A1c 6.3 H (0.0-6.0) % 08/21/22 Range/Units 06:29 POC Glucose (mg/dL) 134 H (70-110) mg/dL Hemoglobin A1c (0.0-6.0) % H & H 08/20/22 Range/Units 06:19 Hgb 13.2 (13.0-17.5) gm/dL Hct 38.9 L (39.0-53.0) % Coagulation 08/20/22 Range/Units 06:19 INR 0.9 (<1.2) Result Diagrams: 08/20/22 06:19 08/20/22 06:19 Assessment and Plan Assessment: Acute onset left shoulder pain etiology acute exacerbation of previous existing arthritis History of cervical spine surgery 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 His physical exam and imaging is most consistent with an exacerbation of pre- existing shoulder arthritis. His shoulder pain seems to be resolving. I would recommend rest use of ice over the shoulder, pain medications per his primary service, physical therapy and use of a sling as needed for comfort. I do not have any plans for further workup for acute surgical intervention. Following discharge the patient can either follow up in our office with one of our shoulder specialists or can follow-up with [facility] as he is a previously established patient of Dr. Penny. We will sign off at this t [email or web address]. Please call with any questions
[2022-08-21] MEDS: ENOXAPARIN 40 MG/0.4 ML SYRINGE SQ SCH (09:32)
[2022-08-21] MEDS: HYDROcodone/APAP 10-325MG 1 EACH TAB PO PRN ×2 (09:32→15:58)
[2022-08-21] MEDS: metFORMIN 500 MG TAB PO SCH ×2 (09:33→21:00)
[2022-08-21] MEDS: FERROUS SULFATE 325 MG TAB PO SCH (09:33)
[2022-08-21] MEDS: GABAPENTIN 300 MG CAP PO PRN ×2 (09:33→15:58)
[2022-08-21] MEDS: ATORVASTATIN 40 MG TAB PO SCH (09:33)
[2022-08-21] MEDS: NICOTINE 21MG/24HR PATCH TRANSDERM SCH (09:42)
[2022-08-21 11:51] LABS: Glucose,Whole Blood 141 mg/dL (70-110)
--- NOTE | 2022-08-21 14:02 | P.PN ---
Progress Note - Text Progress Note Date: 08/21/22 Chief Complaint: Altered consciousness This is a pleasant 66-year-old patient who follows with Dr. Trevino. Patient is accompanied by his and daughter the bedside. Chronic stable medical conditions include diabetes, hypertension, hyperlipidemia, PAD, CAD the prior [place], 2 previous strokes, which patient recovered, STROKE to the left eye, decreased hearing. Patient is a smoker. Patient went to bed at 11 PM last night. Relevant for the patient's woke up and found the patient wanted to go to the restroom. Was not really able to do so felt somewhat confused. Not able to follow commands. Liquid answer questions. She had come to the bathroom. Brought him back to the bed and then when 911 was called. Sometime this afternoon patient started doing better. No focal weakness in the arms or legs. Per the family patient is getting a sense of humor back which is evident while taking the history from him. No change in vision. No change in swallowing. No headache. Normally patient is active and able to get about. About 2 weeks ago patient fell hurting his left shoulder. Complaining of local pain. Admitted with TIA, COPD exacerbation.. 08/21/2022: Patient quite feeling well back to baseline. 2-D echocardiogram with bubble study ordered. Patient on Aggrenox. Eating well. Up and about. Patient did say today he did follow with Dr. Penny regarding his shoulder. He is told he is followed in the cervical spine surgery. Active Medications Acetaminophen (Acetaminophen Tab 325 Mg Tab) 650 mg PO Q6HR PRN PRN Reason: Mild Pain or Fever > 100.5 Hydrocodone Bitart/Acetaminophen (Hydrocodone/Apap 10-325mg 1 Each Tab) 1 each PO TID PRN PRN Reason: Severe Pain (Scale 7 to 10) Last Admin: 08/21/22 09:32 Dose: 1 each Hydrocodone Bitart/Acetaminophen (Hydrocodone/Apap 5-325mg 1 Each Tab) 1 each PO Q6HR PRN PRN Reason: Moderate Pain (Scale 4 to 6) Last Admin: 08/20/22 21:27 Dose: 1 each Albuterol/Ipratropium (Ipratropium-Albuterol 3 Ml Neb) 3 ml INHALATION RT-QID KENYETTA Last Admin: 08/21/22 11:57 Dose: 3 ml Atorvastatin Calcium (Atorvastatin 40 Mg Tab) 40 mg PO DAILY [facility] Last Admin: 08/21/22 09:33 Dose: 40 mg Budesonide (Budesonide 1 Mg/2 Ml Nebu) 1 mg INHALATION RT-BID [facility] Last Admin: 08/21/22 08:06 Dose: 1 mg Calcium Carbonate/Glycine (Calcium Carbonate 500 Mg Chewable) 1,000 mg PO Q4HR PRN PRN Reason: Dyspepsia Cholecalciferol (Cholecalciferol 25 Mcg (1000 Iu) Tablet) 25 mcg PO HS [facility] Last Admin: 08/20/22 21:28 Dose: 25 mcg Cilostazol (Cilostazol 100 Mg Tab) 100 mg PO BID [facility] Last Admin: 08/21/22 09:33 Dose: 100 mg Dextrose/Water (Dextrose 50% Syringe 50 Ml) 25 ml IVP PER PROTOCOL PRN; Protocol PRN Reason: Hypoglycemia Dextrose/Water (Dextrose 50% Syringe 50 Ml) 50 ml IVP PER PROTOCOL PRN; Protocol PRN Reason: Hypoglycemia Dipyridamole/Aspirin (Dipyridamole-Aspirin 200-25 Mg 1 Each Cpmp.12hr) 1 each PO BID [facility] Last Admin: 08/21/22 09:33 Dose: 1 each Enoxaparin Sodium (Enoxaparin 40 Mg/0.4 Ml Syringe) 40 mg SQ DAILY [facility] Last Admin: 08/21/22 09:32 Dose: 40 mg Ferrous Sulfate (Ferrous Sulfate 325 Mg Tab) 325 mg PO QAM [facility] Last Admin: 08/21/22 09:33 Dose: 325 mg Gabapentin (Gabapentin 300 Mg Cap) 300 mg PO TID PRN PRN Reason: Nerve Pain Last Admin: 08/21/22 09:33 Dose: 300 mg Insulin Aspart (Insulin Aspart (Novolog) 100 Unit/Ml Vial) 0 unit SQ AC-TID [facility]; Protocol Last Admin: 08/21/22 12:04 Dose: Not Given Lactulose (Lactulose 20 Gm/30 Ml Cup) 20 gm PO DAILY PRN PRN Reason: Constipation Lorazepam (Lorazepam 0.5 Mg Tab) 0.5 mg PO Q6HR PRN PRN Reason: Anxiety Metformin HCl (Metformin 500 Mg Tab) 500 mg PO BID [facility] Last Admin: 08/21/22 09:33 Dose: 500 mg Methocarbamol (Methocarbamol 500 Mg Tab) 500 mg PO BID PRN PRN Reason: Muscle spasm Miscellaneous Information (Rx Info: Iv Contrast Was Given 1 Each Misc) 1 each MISCELLANE DAILY PRN PRN Reason: Per Protocol Stop: 08/22/22 13:58 Naloxone HCl (Naloxone 0.4 Mg/Ml 1 Ml Vial) 0.2 mg IV Q2M PRN PRN Reason: Opioid Reversal Nicotine (Nicotine 21mg/24hr Patch) 1 patch TRANSDERM DAILY [place]YETTA Last Admin: 08/21/22 09:42 Dose: 1 patch Ondansetron HCl (Ondansetron 4 Mg/2 Ml Vial) 4 mg IVP Q8HR PRN PRN Reason: Nausea And Vomiting Temazepam (Temazepam 15 Mg Cap) 15 mg PO HS PRN PRN Reason: Insomnia Past medical history to include: COPD, stroke, diabetes, hyperlipidemia, hypertension, CAD with [place], HIS total left eye, Social history: Alcohol rarely. Retired otr company truck driver. Lives with his . Smokes three- quarter pack a day for close to 52 years. Family history: Reviewed, noncontributory to presentation Physical examination: VITAL SIGNS: IV 7.7, 114, 15, 1 21 x 62, 95% room air GENERAL: Sitting up in a chair, comfortable EYES: Pupils equal. Conjunctiva normal. HEENT: External appearance of nose and ears normal, oral cavity grossly normal decreased hearing. NECK: JVD not raised; masses not palpable. HEART: First and second heart sounds are normal; no edema. LUNGS: Respiratory rate increased, decreased breath sounds prolonged expiration. Wheezing. ABDOMEN: Soft, nontender, liver spleen not palpable, no masses palpable. PSYCH: Alert and oriented x3; mood and affect normal. MUSCULOSKELETAL:No Clubbing/cyanosis;muscles-grossly intact. 1 NEUROLOGICAL: Cranial nerves grossly intact; no facial asymmetry, power and sensation grossly intact. LYMPHATICS: No lymph nodes palpable in the axilla and neck INVESTIGATIONS, reviewed in the clinical context: White count 5.2 hemoglobin 13.2 platelets 206 potassium 4.2 creatinine 1.04 COVID 19 PCR: Not detected EKG tracing personally reviewed by me-normal sinus rhythm, sinus tachycardia, nonspecific changes Chest x-ray film personally reviewed by me-hyperinflation, prominent pulmonary artery CT brain: Negative CT angina had a neck: Nonspecific Left shoulder x-ray: Showed a joint OA. No fracture. Assessment and plan: -Patient not able to follow commands, but no other focal findings started about 4:00 this morning much better about 2:00 this afternoon. Patient had prior history of 2 strokes. Likely TIA. Computed tomography scan unremarkable. Neuro checks. Consult neurology. Patient is already on antiplatelet agents. Advised against smoking -Chronic nicotine dependence, cigarette smoker Nicotine patch. -Acute COPD exacerbation in a current smoker: Better DuoNeb, nebulized Pulmicort. -Hyperlipidemia Lipitor -Diabetes mellitus type 2 on oral hypoglycemic Metformin. Follow Accu-Cheks -Essential hypertension Metoprolol -PAD, with previous bypass right lower extremity Pletal, Aggrenox -Left shoulder blunt injury secondary to fall. No fractures from x-ray. Denisse pad. Consult Dr. Diallo. Subcu Lovenox. DuoNeb. Nebulized Pulmicort. Nicotine patch. 2-D echo with bubble study pending. Other medications to continue.
--- NOTE | 2022-08-21 14:08 | P.PN ---
Subjective Progress Note Date: 08/21/22 Patient is seen resting comfortably in bed in no signs of acute distress. He underwent a cholesterol panel today which the results are pending. Patient will undergo a echocardiogram with bubble study tomorrow. Objective - Vital Signs Vital signs: Vital Signs Temp 97.7 F 08/21/22 04:30 Pulse 105 H 08/21/22 13:58 Resp 15 08/21/22 12:04 BP 107/55 08/21/22 12:04 Pulse Ox 98 08/21/22 12:04 FiO2 Intake & Output 08/20/22 08/21/22 08/21/22 18:59 06:59 18:59 Weight 78 kg Other: Voiding Method Urinal Urinal Toilet Urinal # Voids 0 2 2 - Exam PHYSICAL EXAM: VITAL SIGNS: Reviewed. GENERAL: Well-developed in no acute distress. HEENT: Head is normocephalic. Pupils are equal, round. Sclerae anicteric. Mucous membranes of the mouth are moist. NECK: Supple. No JVD or thyromegaly RESPIRATORY: Respirations even and unlabored. Lungs diminished to auscultation bilaterally. CARDIO: Regular rate and rhythm. S1 and S2 heard. No murmur or gallops. EXTREMITIES: Normal range of motion. No clubbing or cyanosis. Peripheral pulses intact. Negative for bilateral lower extremity edema NEURO: Orientated to person, time, mood is appropriate - Labs CBC & Chem 7: 08/20/22 06:19 08/20/22 06:19 Labs: Abnormal Lab Results - Last 24 Hours (Table) 08/20/22 08/20/22 08/20/22 Range/Units 06:19 17:03 20:50 POC Glucose (mg/dL) 117 H 166 H (70-110) mg/dL Hemoglobin A1c 6.3 H (0.0-6.0) % 08/21/22 08/21/22 Range/Units 06:29 11:49 POC Glucose (mg/dL) 134 H 141 H (70-110) mg/dL Hemoglobin A1c (0.0-6.0) % Assessment and Plan Assessment: Cerebrovascular accident, rule out cardiac source of thrombolytic phenomenon Peripheral artery disease Coronary artery disease Dyslipidemia Diabetes Plan: We'll continue with current cardiac medications Will obtain an echocardiogram with bubble study tomorrow Further recommendations based on clinical course The above impression and plan of care have been discussed and directed by the signing physician. Tanya Lee, nurse practitioner, acting as scribe for signing physician.
[2022-08-21] MEDS: METOPROLOL TARTRATE 25 MG TAB PO SCH ×2 (15:58→21:05)
--- NOTE | 2022-08-21 16:05 | CA ---
Transthoracic Echo Report Name: Oneil Simmons Age: 66 Gender: M : 1955 Exam Date: 08/21/2022 11:16 Exam Location: [facility] Ht (in): 72 Wt (lb): 171 Ordering Physician: Artis Saenz DO Attending/Referring Phys: [id number], Dany Packing Tractor Machine Operator Cierra Winters, KAZ Procedure CPT: Indications: Thrombus Cardiac Hx: Technical Quality: Contrast 1: Total Dose (mL): Contrast 2: Total Dose (mL): MEASUREMENTS (Male / Female) Normal Values 2D ECHO LV Diastolic Diameter PLAX 4.6 cm 4.2 - 5.9 / 3.9 - 5.3 cm LV Systolic Diameter PLAX 3.2 cm IVS Diastolic Thickness 1.3 cm 0.6 - 1.0 / 0.6 - 0.9 cm LVPW Diastolic Thickness 1.5 cm 0.6 - 1.0 / 0.6 - 0.9 cm LV Relative Wall Thickness 0.6 RV Internal Dim ED PLAX 2.5 cm LA Systolic Diameter LX 3.2 cm 3.0 - 4.0 / 2.7 - 3.8 cm M-MODE Aortic Root Diameter MM 2.4 cm LA Systolic Diameter MM 2.6 cm LA Ao Ratio MM 1.1 MV E Point Septal Separation 0.9 cm AV Cusp Separation MM 1.6 cm DOPPLER AV Peak Velocity 191.3 cm/s AV Peak Gradient 14.6 mmHg AV Mean Velocity 146.7 cm/s AV Mean Gradient 9.2 mmHg AV Velocity Time Integral 31.8 cm LVOT Peak Velocity 86.2 cm/s LVOT Peak Gradient 3.0 mmHg MV Area PHT 3.5 cm??? Mitral E Point Velocity 51.8 cm/s Mitral A Point Velocity 89.9 cm/s Mitral E to A Ratio 0.6 MV Deceleration Time 218.2 ms MV E' Velocity 7.4 cm/s Mitral E to MV E' Ratio 6.9 TR Peak Velocity 157.2 cm/s TR Peak Gradient 9.9 mmHg Right Ventricular Systolic Press 14.9 mmHg FINDINGS Left Ventricle Mildly increased septal wall thickness. Left ventricular cavity size normal. Left ventricular ejection fraction is estimated at 55%. Right Ventricle Normal right ventricular size and function. Right ventricular systolic pressure within normal limits. Right Atrium Normal right atrial size. Left Atrium Normal left atrial size. Mitral Valve Structurally normal mitral valve. Mild mitral regurgitation. Aortic Valve Trileaflet aortic valve. Tricuspid Valve Structurally normal tricuspid valve. Mild tricuspid regurgitation. Pulmonic Valve Structurally normal pulmonic valve. Pericardium Echo free space anterior to the right ventricle likely represents a fat pad. Aorta Normal size aortic root and proximal ascending aorta. CONCLUSIONS Normal LV function Mild mitral regurgitation Previewed by: Dr. Emerson Flanagan MD (Electronically Signed) Final Date: 21 August 2022 16:04
[2022-08-21 16:34] LABS: Glucose,Whole Blood 114 mg/dL (70-110)
[2022-08-21 17:39] LABS: Chol/HDL Ratio 3.83 Ratio; LDL Cholesterol,Calculated 80.2 mg/dL (0.0-131.0); VLDL Calculation 18.78 mg/dL (5.00-40.00)
[2022-08-21 20:28] LABS: Glucose,Whole Blood 136 mg/dL (70-110)
[2022-08-21] MEDS: CHOLECALCIFEROL 25 MCG (1000 IU) TABLET PO SCH (21:00)
[2022-08-21] MEDS: HYDROcodone/APAP 5-325MG 1 EACH TAB PO PRN (21:01)
--- NOTE | 2022-08-21 21:58 | P.PN ---
Subjective Progress Note Date: 08/21/22 Patient was seen for a follow-up. Patient is sitting comfortably in the recliner. All neurological deficits have resolved. Telemetry monitoring showing sinus rhythm between 100-110. No other arrhythmia. Objective - Vital Signs Vital signs: Vital Signs Temp 97.7 F 08/21/22 04:30 Pulse 82 08/21/22 12:07 Resp 15 08/21/22 12:04 BP 107/55 08/21/22 12:04 Pulse Ox 98 08/21/22 12:04 FiO2 Intake & Output 08/20/22 08/21/22 08/21/22 18:59 06:59 18:59 Weight 78 kg Other: Voiding Method Urinal Urinal Toilet Urinal # Voids 0 2 2 - Exam Nonfocal. Except for some left eye peripheral visual disturbance from previous stroke. - Labs CBC & Chem 7: 08/20/22 06:19 08/20/22 06:19 Labs: Abnormal Lab Results - Last 24 Hours (Table) 08/20/22 08/20/22 08/20/22 Range/Units 06:19 17:03 20:50 POC Glucose (mg/dL) 117 H 166 H (70-110) mg/dL Hemoglobin A1c 6.3 H (0.0-6.0) % 08/21/22 08/21/22 Range/Units 06:29 11:49 POC Glucose (mg/dL) 134 H 141 H (70-110) mg/dL Hemoglobin A1c (0.0-6.0) % Assessment and Plan Assessment: * Probable TIA/stroke manifesting with transient mental confusion, gait distur bance, some expressive speech difficulty. All symptoms have resolved. Current NIH stroke scale is 0. * Hypertension * Diabetes * Hyperlipidemia * History of CVA 2 * Peripheral arterial disease * Coronary artery disease * History of cervical fusion 2 * Tobacco use Plan: * Patient has multiple stroke risk factors, currently not taking any antiplatelet medication. He used to be on Aggrenox, which was discontinued about 6-12 months ago because of expense issues. Patient wants to resume Aggrenox 1 tablet twice a day. Patient has received loading dose of aspirin 324 mg in the ED. No need to continue aspirin along with Aggrenox, therefore we will discontinue aspirin. * 2-D echo revealed normal left ventricular function. EF is 55%. Mild mitral r egurgitation. Left atrial size is normal. No obvious embolic source. * CTA head and neck showed: Mild plaque formation at the carotid artery bifurcation. No significant stenosis. Small right vertebral artery. * Fasting a.m. lipid panel with cholesterol 134, LDL 80, HDL 35 and triglycerides 93. Continue Lipitor 40 mg daily. * Hemoglobin A1c 6.3 * Optimize control of blood pressure to target < 130/80 * Telemetry monitoring showing no arrhythmia. Sinus rhythm. Sinus tachycardia. * DVT prophylaxis: Lovenox 40 mg subcu daily. * Neurologically clear for discharge. Dr. Zane Wheeler will be starting neurology service from the morning for any neurological concerns.
[2022-08-22 06:32] LABS: Glucose,Whole Blood 142 mg/dL (70-110)
[2022-08-22] MEDS: INSULIN ASPART (NovoLOG) 100 UNIT/ML VIAL SQ SCH ×2 (06:33→12:11)
[2022-08-22] MEDS: IPRATROPIUM-ALBUTEROL 3 ML NEB INHALATION SCH (07:27)
[2022-08-22] MEDS: BUDESONIDE 1 MG/2 ML NEBU INHALATION SCH (07:27)
[2022-08-22] MEDS: METOPROLOL TARTRATE 25 MG TAB PO SCH (08:36)
[2022-08-22] MEDS: ENOXAPARIN 40 MG/0.4 ML SYRINGE SQ SCH (08:37)
[2022-08-22] MEDS: ATORVASTATIN 40 MG TAB PO SCH (08:37)
[2022-08-22] MEDS: cilostazoL 100 MG TAB PO SCH (08:37)
[2022-08-22] MEDS: HYDROcodone/APAP 10-325MG 1 EACH TAB PO PRN (08:37)
[2022-08-22] MEDS: FERROUS SULFATE 325 MG TAB PO SCH (08:37)
[2022-08-22] MEDS: metFORMIN 500 MG TAB PO SCH (08:37)
[2022-08-22] MEDS: GABAPENTIN 300 MG CAP PO PRN (08:37)
[2022-08-22] MEDS: DIPYRIDAMOLE-ASPIRIN 200-25 MG 1 EACH CPMP.12HR PO SCH (08:37)
[2022-08-22] MEDS: NICOTINE 21MG/24HR PATCH TRANSDERM SCH (08:51)
[2022-08-22 11:43] VITALS: RESP 17; TEMP 99.3
[2022-08-22 11:57] LABS: Glucose,Whole Blood 139 mg/dL (70-110)
--- NOTE | 2022-08-22 13:11 | P.PN ---
Subjective This is a 66-year-old male with a past medical history of type 2 diabetes, hypertension, dyslipidemia, PAD, chronic nicotine dependence, CVA. He follows in the office with Dr. Flanagan. We are consulted for ANTONIA. Patient presents emergency department with complaints of possible stroke like symptoms. He came to the emergency department with transient mental confusion, gait disturbance, some expressive speech difficulty. Neurology is following the patient and ANTONIA was requested. Patient seen and examined at bedside, no acute distress. He denies any chest pain or shortness of breath. Feels back to baseline. All his symptoms have resolved. Telemetry reviewed patient is maintaining sinus mechanism with heart rates in the 90s-low 100s. He is having flu like symptoms today and was tested. Patient positive for influenza A GENERAL: Well-appearing, well-nourished and in no acute distress. NECK: Supple without JVD or thyromegaly. LUNGS: Breath sounds clear to auscultation bilaterally. Respiration equal and unlabored. No wheezes, rales or rhonchi. HEART: Regular rate and rhythm without murmurs, rubs or gallops. S1 and S2 heard. EXTREMITIES: Normal range of motion, no edema. No clubbing or cyanosis. Peripheral pulses intact. ASSESSMENT Transient mental confusion, gait disturbance, some expressive speech difficulty, possible TIA, symptoms resolved Influenza A Type 2 Diabetes Hypertension Dyslipidemia Peripheral artery disease History of CVA x 2 Chronic nicotine dependence PLAN Patient evaluated by his primary cork insulator over the weekend and recommended bubble study, not ANTONIA Plan for echo bubble study today Continue home cardiac medications Further recommendations based on clinical course Nurse Practitioner note has been reviewed, I agree with a documented findings and plan of care. Patient was seen and examined. Objective - Vital Signs Vital signs: Vital Signs Temp 99.3 F 08/22/22 11:43 Pulse 101 H 08/22/22 11:43 Resp 17 08/22/22 11:43 BP 114/67 08/22/22 11:43 Pulse Ox 97 08/22/22 11:43 FiO2 Intake & Output 08/21/22 08/22/22 08/22/22 18:59 06:59 18:59 Intake Total 120 240 Balance 120 240 Intake: Oral 120 240 Other: Voiding Method Toilet External Catheter Toilet Urinal # Voids 2 1 - Labs CBC & Chem 7: 08/20/22 06:19 08/20/22 06:19 Labs: Abnormal Lab Results - Last 24 Hours (Table) 08/20/22 08/21/22 08/21/22 Range/Units 06:19 16:32 20:27 POC Glucose (mg/dL) 114 H 136 H (70-110) mg/dL HDL Cholesterol 35.00 L (40.00-60.00) mg/dL Influenza Type A (PCR) (Not Detectd) 08/22/22 08/22/22 08/22/22 Range/Units 06:31 10:32 11:55 POC Glucose (mg/dL) 142 H 139 H (70-110) mg/dL HDL Cholesterol (40.00-60.00) mg/dL Influenza Type A (PCR) Detected A (Not Detectd)
[2022-08-22 15:23] VITALS: BP 137/81; PULSE 120
[2022-08-22] MEDS ORDERED: METOPROLOL TARTRATE 25 MG TAB PO SCH (16:00)
--- NOTE | 2022-08-22 17:52 | P.DS ---
Providers Date of admission: 08/20/22 06:56 Expected date of discharge: 08/22/22 Attending physician: Collins Jimenez Consults: 08/20/22 06:57 Consult Physician Routine Consulting Provider: Penelope Engle Consult Reason/Comments: cva,tia Do you want consulting provider notified?: Yes 08/20/22 14:19 Consult Physician Routine Consulting Provider: Emerson Flanagan Consult Reason/Comments: ANTONAI Do you want consulting provider notified?: Already Contacted 08/20/22 15:37 Consult Physician Routine Consulting Provider: Yoshi Diallo Consult Reason/Comments: Left shoulder pain secondary to fall Do you want consulting provider notified?: Yes Primary care physician: [facility] Course: Chief Complaint: Altered consciousness This is a pleasant 66-year-old patient who follows with Dr. Trevino. Patient is accompanied by his and daughter the bedside. 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 Patient is a smoker. Patient went to bed at 11 PM last night. Relevant for the patient's woke up and found the patient wanted to go to the restroom. Was not really able to do so felt somewhat confused. Not able to follow commands. Liquid answer questions. She had come to the bathroom. Brought him back to the bed and then when 911 was called. Sometime this afternoon patient started doing better. No focal weakness in the arms or legs. Per the family patient is getting a sense of humor back which is evident while taking the history from him. No change in vision. No change in swallowing. No headache. Normally patient is active and able to get about. About 2 weeks ago patient fell hurting his left shoulder. Complaining of local pain. Admitted with TIA, COPD exacerbation.. 08/21/2022: Patient quite feeling well back to baseline. 2-D echocardiogram with bubble study ordered. Patient on Aggrenox. Eating well. Up and about. Patient did say today he did follow with Dr. Penny regarding his shoulder. He is told he is followed in the cervical spine surgery. 08/22/2022: Nursing informed me that bubble studies cannot be done because of staph shortage. We will follow up with cardiology outpatient. Cleared by Dr. Wheeler from neurology.. Patient doing well otherwise. Continue current medications. 2 follow-up with cardiology and orthopedics and neurology. Discussed with patient. Patient did test positive for influenza. Symptoms have been present for a few days. No Tamiflu Discussion and discharge planning more than 35 minutes Past medical history to include: COPD, stroke, diabetes, hyperlipidemia, hypertension, CAD with VT, HIS total left eye, Social history: Alcohol rarely. Retired company truck driver. Lives with his . Smokes three- quarter pack a day for close to 52 years. Family history: Reviewed, noncontributory to presentation Physical examination: VITAL SIGNS: 99.3, 101, 17, 114/67, 97% room air GENERAL: Sitting up in a chair, comfortable EYES: Pupils equal. Conjunctiva normal. HEENT: External appearance of nose and ears normal, oral cavity grossly normal decreased hearing. NECK: JVD not raised; masses not palpable. HEART: First and second heart sounds are normal; no edema. LUNGS: Respiratory rate increased, decreased breath sounds prolonged expiration. Wheezing. ABDOMEN: Soft, nontender, liver spleen not palpable, no masses palpable. PSYCH: Alert and oriented x3; mood and affect normal. INVESTIGATIONS, reviewed in the clinical context: Influenza type A: Detected White count 5.2 hemoglobin 13.2 platelets 206 potassium 4.2 creatinine 1.04 COVID 19 PCR: Not detected EKG tracing personally reviewed by me-normal sinus rhythm, sinus tachycardia, nonspecific changes Chest x-ray film personally reviewed by me-hyperinflation, prominent pulmonary artery CT brain: Negative CT angina had a neck: Nonspecific Left shoulder x-ray: Showed a joint OA. No fracture. Assessment and plan: - TIA. Computed tomography scan unremarkable. Aggrenox Lipitor Advised against smoking -Chronic nicotine dependence, cigarette smoker Nicotine patch. -Acute COPD exacerbation in a current smoker: Better DC on Symbicort -Hyperlipidemia Lipitor -Diabetes mellitus type 2 on oral hypoglycemic Metformin. Follow Accu-Cheks -Essential hypertension Metoprolol -PAD, with previous bypass right lower extremity Pletal, Aggrenox -Left shoulder blunt injury secondary to fall. No fractures from x-ray. Follow Dr. Penny outpatient Disposition: Home Plan - Discharge Summary New Discharge Prescriptions: New Dipyridamole-Aspirin 200-25 mg [Aggrenox 25MG -200MG] 1 each PO BID #60 cap Budesonide/Formoterol Fumarate [Symbicort 80-4.5 Mcg Inhaler] 1 puff INHALATION BID #10.2 gm Nicotine 21Mg/24Hr Patch [Habitrol] 1 patch TRANSDERM DAILY #14 patch Ferrous Sulfate [Iron (65 MG Elemental)] 325 mg PO QAM tab Continue Hydrocodone/Acetaminophen [Hydrocodone/Acetaminophen 10-325] 1 tab PO TID PRN PRN Reason: Pain Gabapentin 300 mg PO BID PRN PRN Reason: Pain cilostazoL [Pletal] 100 mg PO BID Atorvastatin Calcium [Lipitor] 40 mg PO HS metFORMIN HCL [Glucophage] 500 mg PO BID methocarbamoL [Robaxin] 500 mg PO DAILY PRN PRN Reason: Pain Changed Metoprolol Tartrate 25 mg PO TID #90 tab Discontinued Ibuprofen 800 mg PO Q12H PRN PRN Reason: Pain Discharge Medication List Gabapentin 300 mg PO BID PRN 04/22/14 [History] Hydrocodone/Acetaminophen [Hydrocodone/Acetaminophen 10-325] 1 tab PO TID PRN 04/22/14 [History] cilostazoL [Pletal] 100 mg PO BID 04/22/14 [History] Atorvastatin Calcium [Lipitor] 40 mg PO HS 05/10/20 [History] metFORMIN HCL [Glucophage] 500 mg PO BID 05/10/20 [History] methocarbamoL [Robaxin] 500 mg PO DAILY PRN 05/10/20 [History] Budesonide/Formoterol Fumarate [Symbicort 80-4.5 Mcg Inhaler] 1 puff INHALATION BID #10.2 gm 08/22/22 [Rx] Dipyridamole-Aspirin 200-25 mg [Aggrenox 25MG -200MG] 1 each PO BID #60 cap 08/22/22 [Rx] Ferrous Sulfate [Iron (65 MG Elemental)] 325 mg PO QAM tab 08/22/22 [Rx] Metoprolol Tartrate 25 mg PO TID #90 tab 08/22/22 [Rx] Nicotine 21Mg/24Hr Patch [Habitrol] 1 patch TRANSDERM DAILY #14 patch 08/22/22 [Rx] Follow up Appointment(s)/Referral(s): Navdeep Patterson MD [REFERRING] - 1 Week (office will call with follow up a ppointment date and time) Mateusz Trevino DO [Primary Care Provider] - 08/31/22 11:20 am Sin Penny DO [Doctor of Osteopathic Medicine] - 08/29/22 1:50 pm Emerson Flanagan MD [STAFF PHYSICIAN] - 09/01/22 8:00 am Patient Instructions/Handouts: Metoprolol (By mouth), Nicotine (Absorbed through the skin), Aspirin/Dipyridamole (By mouth), Budesonide/Formoterol (By breathing), Transient Ischemic Attack (DC), How to Stop Smoking (DC) Discharge Disposition: HOME WITH HOME HEALTH SERVICES
== END 2022-08-22 16:11 | disposition home health service (06) | DRG 69 ==
LOC: EC 06:07 → 3SCARD 06:56
PROVIDERS: ADMIT Hospitalist; ATTEND Hospitalist
PROC: B246ZZ4 Ultrasonography of Right and Left Heart, Transesophageal (ICD-10-PCS; principal; 2022-08-21)
DX: G45.9 Transient cerebral ischemic attack, unspecified (principal); J44.1 Chronic obstructive pulmonary disease with (acute) exacerbation; R47.01 Aphasia; E11.51 Type 2 diabetes mellitus with diabetic peripheral angiopathy without gangrene; E11.649 Type 2 diabetes mellitus with hypoglycemia without coma; E78.00 Pure hypercholesterolemia, unspecified; F41.9 Anxiety disorder, unspecified; F17.210 Nicotine dependence, cigarettes, uncomplicated; G47.00 Insomnia, unspecified; G89.29 Other chronic pain; I10 Essential (primary) hypertension; H54.7 Unspecified visual loss; I25.2 Old myocardial infarction; M19.012 Primary osteoarthritis, left shoulder; S49.92XA Unspecified injury of left shoulder and upper arm, initial encounter; Z79.84 Long term (current) use of oral hypoglycemic drugs; I08.1 Rheumatic disorders of both mitral and tricuspid valves; J10.1 Influenza due to other identified influenza virus with other respiratory manifestations; I25.10 Atherosclerotic heart disease of native coronary artery without angina pectoris; K59.00 Constipation, unspecified; M50.30 Other cervical disc degeneration, unspecified cervical region; M47.812 Spondylosis without myelopathy or radiculopathy, cervical region; W18.09XA Striking against other object with subsequent fall, initial encounter; Z79.02 Long term (current) use of antithrombotics/antiplatelets; Z79.899 Other long term (current) drug therapy; Z86.73 Personal history of transient ischemic attack (TIA), and cerebral infarction without residual deficits; Z95.1 Presence of aortocoronary bypass graft; Z20.822 Contact with and (suspected) exposure to COVID-19; Z98.1 Arthrodesis status; Z71.6 Tobacco abuse counseling
CPT/HCPCS: 36415; 70450; 70496; 70498; 71045; 71260; 74177; 80053; 80061; 83036; 84443; 84484; 85025; 85610; 85730; 87635; 87636; 93005; 93306; 94640; 94760; 96360; 96361; 99291

== ENCOUNTER → 2023-09-04 | Outpatient (CLI) | payer MEDICARE ==
[2023-09-04 20:26] LABS: ALT 15 U/L (10-49); AST 17 U/L (14-35); Chol/HDL Ratio 3.55 Ratio; LDL Cholesterol,Calculated 82.6 mg/dL (0.0-131.0); VLDL Calculation 16.48 mg/dL (5.00-40.00)
== END | disposition home or self-care (01) ==
LOC: LABWHC1 12:23
PROVIDERS: ATTEND Internal Medicine Cardiovascular Disease
DX: E78.2 Mixed hyperlipidemia (principal)
CPT/HCPCS: 36415; 80061; 84450; 84460

== ENCOUNTER → 2024-04-17 | Outpatient (CLI) | payer MEDICARE ==
--- NOTE | 2024-04-17 15:48 | US ---
EXAMINATION TYPE: US groin RT DATE OF EXAM: 04/17/2024 COMPARISON: CT 08/20/2022 CLINICAL INDICATION: Male, 68 years old with history of K40.90 UNIL INGUINAL HERNIA, W/O OBST OR GANG R, NO; Lump in groin x 1 month TECHNIQUE: Grayscale imaging of the right inguinal region FINDINGS: What is thought to be a inguinal hernia at patients AOC, no organizing fluid collection or mass. IMPRESSION: Area of concern is felt
== END | disposition home or self-care (01) ==
LOC: RADUSWWP 14:28
PROVIDERS: ATTEND Family Medicine
DX: K40.90 Unilateral inguinal hernia, without obstruction or gangrene, not specified as recurrent (principal)

== ENCOUNTER 2024-07-22 15:30 | Emergency (ER) | payer MEDICAID, MEDICARE ==
[2024-07-22 16:30] LABS: Basophils # (A) 0.1 k/uL (0-0.2); Basophils % (A) 1 %; Eosinophils # (A) 0.2 k/uL (0-0.7); Eosinophils % (A) 3 %; HCT 41.8 % (39.0-53.0); HGB 13.5 gm/dL (13.0-17.5); Lymphocytes # (A) 1.8 k/uL (1.0-4.8); Lymphocytes % (A) 21 %; MCHC 32.4 g/dL (31.0-37.0); MCV 92.6 fL (80.0-100.0); Mean Platelet Volume 6.3; Monocytes # (A) 0.7 k/uL (0-1.0); Monocytes % (A) 8 %; Neutrophils # (A) 5.8 k/uL (1.3-7.7); Neutrophils % (A) 67 %; Platelet Count 285 k/uL (150-450); RBC 4.52 m/uL (4.30-5.90); RDW 13.3 % (11.5-15.5); WBC 8.7 k/uL (3.8-10.6)
[2024-07-22 16:40] LABS: ALT 10 U/L (4-49); AST 16 U/L (17-59); African American GFR (CKD) >90 (>60 ml/min/1.73 sqM); Albumin 4.2 g/dL (3.5-5.0); Alkaline Phosphatase 109 U/L (38-126); Anion Gap 6 mmol/L; Blood Urea Nitrogen 13 mg/dL (9-20); Calcium 9.1 mg/dL (8.4-10.2); Carbon Dioxide 27 mmol/L (22-30); Chloride 105 mmol/L (98-107); Glucose 107 mg/dL (74-99); Magnesium 1.8 mg/dL (1.6-2.3); Non-African American GFR(CKD) 84 (>60 ml/min/1.73 sqM); Potassium 3.4 mmol/L (3.5-5.1); Sodium 138 mmol/L (137-145); Total Bilirubin 0.6 mg/dL (0.2-1.3); Total Protein 7.1 g/dL (6.3-8.2)
[2024-07-22 16:55] LABS: INR 0.9 (<1.2); Partial Thromboplastin Time 23.4 sec (22.0-30.0); Prothrombin Time 10.3 sec (10.0-12.5)
--- NOTE | 2024-07-22 17:00 | XR ---
EXAMINATION TYPE: XR chest 2V DATE OF EXAM: 07/22/2024 4:51 PM COMPARISON: Chest radiographs from 09/06/2022 CLINICAL INDICATION: Male, 68 years old with history of syncope; [facility] TECHNIQUE: XR chest 2V Frontal and lateral views of the chest. FINDINGS: Lungs/Pleura: There is no evidence of pleural effusion, focal consolidation, or pneumothorax. Pulmonary vascularity: Unremarkable. Heart/mediastinum: Cardiomediastinal silhouette is unremarkable. Musculoskeletal: No acute osseous pathology. There is fixation hardware in the lower cervical spine. IMPRESSION: No acute cardiopulmonary disease/process. [facility], , 07/22/2024 4:58 PM
--- NOTE | 2024-07-22 19:15 | ED ---
General Adult HPI - General Chief complaint: Syncope Stated complaint: SYNCOPE Time Seen by Provider: 07/22/24 19:00 Source: patient, RN notes reviewed, old records reviewed Mode of arrival: EMS Limitations: no limitations - History of Present Illness Initial comments: This is a 68-year-old male who is at his neurologist office today to get pain management medicines. Patient states that he became dizzy when he was standing so he sat down he continued to be dizzy and he passed out. Patient states he woke up shortly thereafter and was feeling just fine. Patient states he has had no chest pain palpitation difficulty breathing or shortness of breath. Patient denies a headache patient has numbness weakness. Patient states he has had no abdominal pain no nausea vomiting diarrhea. Patient had no recent fever or chills. Patient's only complaint is he thinks he is getting a sinus infection for the last 2 weeks had quite a bit of tenderness over the maxillary sinuses. And he has a history of this. Patient stated all the symptoms began at 245 this afternoon. - Related Data Home Medications Medication Instructions Recorded Confirmed Gabapentin 300 mg PO BID 04/22/14 07/22/24 Hydrocodone/Acetaminophen 1 tab PO QID PRN 04/22/14 07/22/24 [Hydrocodone/Acetaminophen 10-325] cilostazoL [Pletal] 100 mg PO BID 04/22/14 07/22/24 Atorvastatin Calcium [Lipitor] 40 mg PO DAILY 05/10/20 07/22/24 metFORMIN HCL [Glucophage] 500 mg PO BID-W/MEALS 05/10/20 07/22/24 Metoprolol Succinate (ER) [Toprol 50 mg PO DAILY 07/22/24 07/22/24 Xl] Triamcinolone 0.1% Cream [Kenalog 1 applicatio TOPICAL BID PRN 07/22/24 07/22/24 0.1% Cream] amLODIPine [Norvasc] 5 mg PO HS 07/22/24 07/22/24 Previous Rx's Medication Instructions Recorded Amoxic-Pot Clav 875-125Mg 1 tab PO BID 10 Days #28 tab 07/22/24 [Augmentin 875-125] Allergies Allergy/AdvReac Type Severity Reaction Status Date / Time No Known Allergies Allergy Verified 07/22/24 19:38 Review of Systems ROS Statement: Those systems with pertinent positive or pertinent negative responses have been documented in the HPI. ROS Other: All systems not noted in ROS Statement are negative. 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 Last Myocardial Infarction Date:: 2000 History of Any Multi-Drug Resistant Organisms: None Reported Past Surgical History: Tonsillectomy Additional Past Surgical History / Comment(s): cervical fusion x2 in 2005, bypass right leg artery Past Anesthesia/Blood Transfusion Reactions: No Reported Reaction Past Psychological History: No Psychological Hx Reported Smoking Status: Current every day smoker Past Alcohol Use History: None Reported Past Drug Use History: None Reported General Exam - General Exam Comments Initial Comments: GENERAL: Patient is well-developed and well-nourished. Patient is nontoxic and well- hydrated and is in no acute distress. ENT: Neck is soft and supple. No significant lymphadenopathy is noted. Oropharynx is clear. Moist mucous membranes. Neck has full range of motion without eliciting any pain. Patient has tenderness over bilateral maxillary sinuses EYES: The sclera were anicteric and conjunctiva were pink and moist. Extraocular movements were intact and pupils were equal round and reactive to light. Eyeli ds were unremarkable. PULMONARY: Unlabored respirations. Good breath sounds bilaterally. No audible rales rhonchi or wheezing was noted. CARDIOVASCULAR: There is a regular rate and rhythm without any murmurs gallops or rubs. ABDOMEN: Soft and nontender with normal bowel sounds. No palpable organomegaly was noted. There is no palpable pulsatile mass. SKIN: Skin is clear with no lesions or rashes and otherwise unremarkable. NEUROLOGIC: Patient is alert and oriented x3. Cranial nerves II through XII are grossly intact. Motor and sensory are also intact. Normal speech, volume and content. Symmetrical smile. MUSCULOSKELETAL: Normal extremities with adequate strength and full range of motion. LYMPHATICS: No significant lymphadenopathy is noted PSYCHIATRIC: Normal psychiatric evaluation. Limitations: no limitations Course Vital Signs 07/22/24 07/22/24 07/22/24 15:44 18:49 19:43 Temperature 97.4 F L Pulse Rate 67 69 Pulse Rate [ 66 Sitting Booth Cashier] Respiratory 18 20 16 Rate Blood Pressure 136/64 167/84 Blood Pressure 164/79 [Right Arm Sitting] Blood Pressure [Right Arm Standing] Blood Pressure [Right Arm Supine] O2 Sat by Pulse 98 98 98 Oximetry 07/22/24 07/22/24 19:44 19:45 Temperature Pulse Rate Pulse Rate [ 72 70 Sitting Booth Cashier] Respiratory 16 16 Rate Blood Pressure Blood Pressure [Right Arm Sitting] Blood Pressure 159/71 [Right Arm Standing] Blood Pressure 167/73 [Right Arm Supine] O2 Sat by Pulse 98 98 Oximetry Medical Decision Making - Medical Decision Making EKG is interpreted by myself EKG shows sinus rhythm at 64 bpm [place] was 185 QRS is 91 QT interval is 4 2 QTc is 412. Patient's EKG shows no ST segment elevation or depression. Was pt. sent in by a medical professional or institution (, [place], [facility], urgent care, hospital, or residential...) When possible be specific @ -No Did you speak to anyone other than the patient for history (EMS, parent, family, police, friend...)? What history was obtained from this source @ -No Did you review nursing and triage notes (agree or disagree)? Why? @ -I reviewed and agree with nursing and triage notes Were old charts reviewed (outside hosp., previous admission, EMS record, old EKG, old radiological studies, urgent care reports/EKG's, residential records)? Report findings @ -No old charts were reviewed Differential Diagnosis? @ -Differential Syncope: Valvular disease, hypertrophic cardiomyopathy, pulmonary embolism, tamponade, tachycardia, bradycardia, [place], hypovolemia, hemorrhage, dissection, anemia, intra cranial hemorrhage, seizure, hypoglycemia, carbon monoxide poisoning, this is not meant to be an all-inclusive list. EKG interpreted by me (3pts min.). @ -As above X-rays interpreted by me (1pt min.). @ -Chest x-ray shows no acute abnormality CT interpreted by me (1pt min.). @ -None done U/S interpreted by me (1pt. min.). @ -None done What testing was considered but not performed or refused? (CT, X-rays, U/S, labs)? Why? @ -None What meds were considered but not given or refused? Why? @ -None Did you discuss the management of the patient with other professionals (professionals i.e. [place] [employer], [facility] [facility], lab, RT, psych nurse, transition social worker, criminal justice lawyer, teacher, armed security officer, family independence case manager)? Give summary @ -No Was smoking cessation discussed for >3mins.? @ -No Was critical care preformed (if so, how long)? @ -No Were there social determinants of health that impacted care today? How? (Homelessness, low income, unemployed, alcoholism, drug addiction, transportation, low edu. Level, literacy, decrease access to med. care, penitentiary, rehab)? @ -No Was there de-escalation of care discussed even if they declined (Discuss DNR or withdrawal of care, Hospice)? DNR status @ -No What co-morbidities impacted this encounter? (DM, HTN, Smoking, COPD, CAD, Cancer, CVA, ARF, Chemo, Hep., AIDS, mental health diagnosis, sleep apnea, morbid obesity)? @ -None Was patient admitted / discharged? Hospital course, mention meds given and route, prescriptions, significant lab abnormalities, going to OR and other pertinent info. @ -Patient had no symptoms while in the emergency department. Patient's labs were normal. Patient's chest x-ray was normal. Patient orthostatics were normal. Patient also stated he has had multiple syncopal episodes in the past. Patient will be treated for sinusitis with Augmentin. Patient's symptoms started 2 weeks ago. Undiagnosed new problem with uncertain prognosis? @ -No Drug Therapy requiring intensive monitoring for toxicity (Heparin, Nitro, Insulin, Cardizem)? @ -No Were any procedures done? @ -No Diagnosis/symptom? @ -Syncope Acute, or Chronic, or Acute on Chronic? @ -Acute Uncomplicated (without systemic symptoms) or Complicated (systemic symptoms)? @ -Complicate Side effects of treatment? @ -No Exacerbation, Progression, or Severe Exacerbation? @ -No Poses a threat to life or bodily function? How? (Chest pain, [place], [place], pneumonia, PE, COPD, DKA, ARF, appy, cholecystitis, CVA, Diverticulitis, Homicidal, Suicidal, threat to staff... and all critical care pts) @ -No Diagnosis/symptom? @ -Sinusitis Acute, or Chronic, or Acute on Chronic? @ -Acute Uncomplicated (without systemic symptoms) or Complicated (systemic symptoms)? @ -Uncomplicated Side effects of treatment? @ -None Exacerbation, Progression, or Severe Exacerbation] @ -No Poses a threat to life or bodily function? @ -No - Lab Data Result diagrams: 07/22/24 16:04 07/22/24 16:04 Lab Results 07/22/24 07/22/24 07/22/24 Range/Units 16:04 16:04 16:04 WBC 8.7 (3.8-10.6) k/uL RBC 4.52 (4.30-5.90) m/uL Hgb 13.5 (13.0-17.5) gm/dL Hct 41.8 (39.0-53.0) % MCV 92.6 (80.0-100.0) fL MCH 30.0 (25.0-35.0) pg MCHC 32.4 (31.0-37.0) g/dL RDW 13.3 (11.5-15.5) % Plt Count 285 (150-450) k/uL MPV 6.3 Neutrophils % 67 % Lymphocytes % 21 % Monocytes % 8 % Eosinophils % 3 % Basophils % 1 % Neutrophils # 5.8 (1.3-7.7) k/uL Lymphocytes # 1.8 (1.0-4.8) k/uL Monocytes # 0.7 (0-1.0) k/uL Eosinophils # 0.2 (0-0.7) k/uL Basophils # 0.1 (0-0.2) k/uL PT 10.3 (10.0-12.5) sec INR 0.9 (<1.2) APTT 23.4 (22.0-30.0) sec Sodium 138 (137-145) mmol/L Potassium 3.4 L (3.5-5.1) mmol/L Chloride 105 (98-107) mmol/L Carbon Dioxide 27 (22-30) mmol/L Anion Gap 6 mmol/L BUN 13 (9-20) mg/dL Creatinine 0.92 (0.66-1.25) mg/dL Est GFR (CKD-EPI)AfAm >90 (>60 ml/min/1.73 sqM) Est GFR (CKD-EPI)NonAf 84 (>60 ml/min/1.73 sqM) Glucose 107 H (74-99) mg/dL Calcium 9.1 (8.4-10.2) mg/dL Magnesium 1.8 (1.6-2.3) mg/dL Total Bilirubin 0.6 (0.2-1.3) mg/dL AST 16 L (17-59) U/L ALT 10 (4-49) U/L Alkaline Phosphatase 109 (38-126) U/L Troponin I (0.000-0.034) ng/mL Total Protein 7.1 (6.3-8.2) g/dL Albumin 4.2 (3.5-5.0) g/dL 07/22/24 Range/Units 16:04 WBC (3.8-10.6) k/uL RBC (4.30-5.90) m/uL Hgb (13.0-17.5) gm/dL Hct (39.0-53.0) % MCV (80.0-100.0) fL MCH (25.0-35.0) pg MCHC (31.0-37.0) g/dL RDW (11.5-15.5) % Plt Count (150-450) k/uL MPV Neutrophils % % Lymphocytes % % Monocytes % % Eosinophils % % Basophils % % Neutrophils # (1.3-7.7) k/uL Lymphocytes # (1.0-4.8) k/uL Monocytes # (0-1.0) k/uL Eosinophils # (0-0.7) k/uL Basophils # (0-0.2) k/uL PT (10.0-12.5) sec INR (<1.2) APTT (22.0-30.0) sec Sodium (137-145) mmol/L Potassium (3.5-5.1) mmol/L Chloride (98-107) mmol/L Carbon Dioxide (22-30) mmol/L Anion Gap mmol/L BUN (9-20) mg/dL Creatinine (0.66-1.25) mg/dL Est GFR (CKD-EPI)AfAm (>60 ml/min/1.73 sqM) Est GFR (CKD-EPI)NonAf (>60 ml/min/1.73 sqM) Glucose (74-99) mg/dL Calcium (8.4-10.2) mg/dL Magnesium (1.6-2.3) mg/dL Total Bilirubin (0.2-1.3) mg/dL AST (17-59) U/L ALT (4-49) U/L Alkaline Phosphatase (38-126) U/L Troponin I <0.012 (0.000-0.034) ng/mL Total Protein (6.3-8.2) g/dL Albumin (3.5-5.0) g/dL Disposition Clinical Impression: Syncope, Sinusitis Disposition: HOME SELF-CARE Condition: Good Instructions (If sedation given, give patient instructions): Syncope (ED), Sinusitis (ED) Prescriptions: Amoxic-Pot Clav 875-125Mg [Augmentin 875-125] 1 tab PO BID 10 Days #28 tab Is patient prescribed a controlled substance at d/c from ED?: No Referrals: Mateusz Trevino DO [Primary Care Provider] - 1-2 days Time of Disposition: 19:48
[2024-07-22 19:44] VITALS: RESP 16
[2024-07-22 19:45] VITALS: BP 167/73; PULSE 70
[2024-07-22 20:00] VITALS: TEMP 98.1
== END 2024-07-22 19:59 | disposition home or self-care (01) ==
LOC: EC 15:30
DX: R55 Syncope and collapse (principal); J32.9 Chronic sinusitis, unspecified; F17.200 Nicotine dependence, unspecified, uncomplicated; Z86.73 Personal history of transient ischemic attack (TIA), and cerebral infarction without residual deficits
CPT/HCPCS: 36415; 71046; 80053; 83735; 84484; 85025; 85610; 85730; 93005; 99285

== ENCOUNTER → 2024-08-21 | Outpatient (CLI) | payer MEDICARE ==
[2024-08-21 15:14] LABS: HGB 13.4 g/dL (13.0-17.0); MCH 30.5 pg (27.0-32.0); MCHC 32.7 g/dL (32.0-37.0); MCV 93.2 FL (80.0-97.0); Mean Platelet Volume 8.5 FL (9.5-12.2); NRBC Per 100 WBC 0 X 10*3/uL (0.00-0.01); Platelet Count 257 X 10*3/uL (140-440); RDW 13.3 % (11.5-14.5); WBC 8.91 X 10*3/uL (4.50-10.00)
== END | disposition home or self-care (01) ==
LOC: LABPAT 11:52
PROVIDERS: ATTEND Surgery Plastic and Reconstructive Surgery
DX: Z01.812 Encounter for preprocedural laboratory examination (principal)
CPT/HCPCS: 36415; 85027